=== PATIENT | female | born 1940 | race American Indian/Alaskan Native ===

== ENCOUNTER 2016-10-26 01:04 | Inpatient (IN) | payer MEDICARE ==
[2016-10-26] MEDS ORDERED: PROVENTIL IH ONE (02:37)
[2016-10-26] MEDS ORDERED: ATROVENT IH ONE (02:37)
--- NOTE | 2016-10-26 02:43 | Emergency Department Report ---
ED General Adult HPI - General Chief complaint: Dyspnea/Respdistress Stated complaint: MARIANELA Time Seen by Provider: 10/26/16 02:22 Source: patient, family, EMS (ems notes not available at time of chart dictation), RN notes reviewed, old records reviewed Mode of arrival: Stretcher Limitations: Physical Limitation - History of Present Illness Initial comments: This is a 76-year-old female, previously unknown to me. Her primary care doctor is Dr. Annette Hitchcock. Past medical history includes A. fib on Coumadin, high cholesterol, heart disease, stroke, multiple myeloma, on systemic anticoagulation. The patient presents to the ER complaining of chest pain, shortness of breath, cough, wheezing. Symptoms started a few hours ago. The chest pain is left- sided. It is constant. It increases with range of motion, coughing. The cough is productive of mucus. She denies lower extremity pain, she denies lower extremity swelling. She reports compliance with medications. No recent trips. Shortness of breath worsens when she lays supine. As per verbal report from the nurse who received from EMS, she was hypoxic in the 80s. On a nasal cannula, she is in the high 90s. -: Gradual Location: chest Severity scale (0 -10): 0 Quality: aching Consistency: constant Improves with: rest Worsens with: movement Associated Symptoms: chest pain, cough, loss of appetite, malaise, shortness of breath, weakness - Related Data Home Medications Medication Instructions Recorded Confirmed Last Taken Atorvastatin [Lipitor] 40 mg PO QHS 04/22/14 01/23/15 09/16/14 22:00 40mg Doxazosin Mesylate [Cardura] 2 mg PO DAILY 04/22/14 01/23/15 09/17/14 08:00 2mg Esomeprazole Magnesium [NexIUM] 40 mg PO QDAY 04/22/14 01/23/15 09/17/14 08:00 40mg amLODIPine [Norvasc] 10 mg PO DAILY 04/22/14 01/23/15 09/17/14 08:00 10mg Previous Rx's Medication Instructions Recorded Last Taken Type levETIRAcetam [Keppra TAB] 1,500 mg PO BID #60 tablet 09/16/14 09/17/14 10:00 Rx 1500mg Diltiazem Cd [Cardizem CD] 180 mg PO QDAY #30 capsule 01/29/15 Unknown Rx Oxycodone HCl [Oxecta] 5 mg PO Q6H PRN #10 tablet.orl 01/29/15 Unknown Rx Warfarin [Coumadin] 4 mg PO DAILY@1700 #7 tablet 01/29/15 Unknown Rx Allergies Allergy/AdvReac Type Severity Reaction Status Date / Time No Known Allergies Allergy Verified 04/18/14 13:51 ED Review of Systems ROS: Stated complaint: MARIANELA Other details as noted in HPI Constitutional: malaise, weakness Eyes: denies: vision change ENT: congestion Respiratory: shortness of breath, wheezing Cardiovascular: dyspnea on exertion Gastrointestinal: denies: abdominal pain Genitourinary: denies: urgency, dysuria Musculoskeletal: denies: back pain Skin: denies: lesions Neurological: weakness ED Past Medical Hx - Past Medical History Hx Hypertension: Yes Hx CVA: Yes (left side weakness) Hx Heart Attack/AMI: Yes Hx Diabetes: No Hx Renal Disease: Yes (1 seizure) Hx Arthritis: Yes Hx Seizures: Yes Hx HIV: No Additional medical history: Atrial fibrillation, GI bleeding - Surgical History Hx Pacemaker: No Hx Cholecystectomy: Yes Additional Surgical History: D&C - Social History Smoking Status: Current Some Day Smoker Substance Use Type: None - Medications Home Medications: Home Medications Medication Instructions Recorded Confirmed Last Taken Type Atorvastatin [Lipitor] 40 mg PO QHS 04/22/14 01/23/15 09/16/14 22:00 History 40mg Doxazosin Mesylate [Cardura] 2 mg PO DAILY 04/22/14 01/23/15 09/17/14 08:00 History 2mg Esomeprazole Magnesium [NexIUM] 40 mg PO QDAY 04/22/14 01/23/15 09/17/14 08:00 History 40mg amLODIPine [Norvasc] 10 mg PO DAILY 04/22/14 01/23/15 09/17/14 08:00 History 10mg levETIRAcetam [Keppra TAB] 1,500 mg PO BID #60 tablet 09/16/14 01/25/15 10:00 Rx 1500mg Diltiazem Cd [Cardizem CD] 180 mg PO QDAY #30 capsule 01/29/15 Unknown Rx Oxycodone HCl [Oxecta] 5 mg PO Q6H PRN #10 tablet.orl 01/29/15 Unknown Rx Warfarin [Coumadin] 4 mg PO DAILY@1700 #7 tablet 01/29/15 Unknown Rx ED Physical Exam - General Limitations: No Limitations, Physical Limitation General appearance: alert, in distress (mild respiratory distress) - Head Head exam: Present: atraumatic, normocephalic - Eye Eye exam: Present: normal appearance - ENT ENT exam: Present: mucous membranes dry - Neck Neck exam: Present: normal inspection, full ROM. Absent: tenderness, meningismus - Respiratory Respiratory exam: Present: respiratory distress, wheezes, rales - Cardiovascular Cardiovascular Exam: Present: regular rate, normal heart sounds. Absent: bradycardia, tachycardia, systolic murmur, diastolic murmur, rubs, gallop - GI/Abdominal GI/Abdominal exam: Present: soft, normal bowel sounds. Absent: distended, tenderness, guarding, rebound, rigid, pulsatile mass - Extremities Exam Extremities exam: Present: normal inspection, normal capillary refill, pedal edema, other (5/5 strength right upper extremity, right lower extremity. The left lower extremity is baseline weakness, and is unable to move. Minimal movement against gravity with the left upper extremity.). Absent: tenderness, calf tenderness - Back Exam Back exam: Present: normal inspection, full ROM. Absent: tenderness, CVA tenderness (R), CVA tenderness (L), muscle spasm, paraspinal tenderness, vertebral tenderness - Neurological Exam Neurological exam: Present: alert, oriented X3, motor sensory deficit - Psychiatric Psychiatric exam: Present: normal affect, normal mood - Skin Skin exam: Present: warm, dry, intact, normal color. Absent: rash ED Course Vital Signs 10/26/16 10/26/16 02:14 02:21 Temperature 98.4 F 98.4 F Pulse Rate 61 64 Respiratory 18 Rate Blood Pressure 103/57 Blood Pressure 103/67 [Left] O2 Sat by Pulse 87 96 Oximetry - Reevaluation(s) Reevaluation #1: 10/26/16 04:19 Differential diagnosis: Bronchitis, reactive airway disease, acute coronary syndrome, pneumonia Assessment and plan: 76-year-old female with what clinically sounds like an acute respiratory illness. She has wheezing, rales and rhonchi, saturating in the mid 80s, and has some respiratory distress. She takes Coumadin. She felt improved with albuterol, Atrovent and steroids. Influenza swab is pending. INR slightly subtherapeutic. She will be given Lovenox. Given his advanced age , medical comorbidities, low oxygen saturation, she will be admitted for further management. An ABG is pending. The Hospital physician, , accepts the patient to his service. ED Medical Decision Making - Lab Data Result diagrams: 10/26/16 03:21 10/26/16 03:21 Vital Signs 10/26/16 10/26/16 02:14 02:21 Temperature 98.4 F 98.4 F Pulse Rate 61 64 Respiratory 18 Rate Blood Pressure 103/57 Blood Pressure 103/67 [Left] O2 Sat by Pulse 87 96 Oximetry - EKG Data 10/26/16 02:53 Atrial fibrillation, left axis deviation, 70 bpm, poor R-wave progression, low voltage, nonspecific ST abnormality, not consistent with STEMI. Appears unchanged from prior. - Radiology Data Radiology results: report reviewed, image reviewed xr chest negative cardiomegaly Critical care attestation.: If time is entered above; I have spent that time in minutes in the direct care of this critically ill patient, excluding procedure time. ED Disposition Clinical Impression: Subtherapeutic international normalized ratio (INR) Dyspnea Qualifiers: Dyspnea type: unspecified Qualified Code(s): R06.00 - Dyspnea, unspecified Disposition: OP ADMITTED IP TO THIS HOSP Is pt being admited?: Yes Does the pt Need Aspirin: Yes Condition: Good
[2016-10-26 03:46] LABS: Basophils % (Auto) 0.5 % (0.0-1.8); Eosinophils % (Auto) 0.2 % (0.0-4.3); Hematocrit 38.6 % (30.3-42.9); Hemoglobin 13.3 gm/dl (10.1-14.3); Mean Corpuscular HGB Conc 35 % (30-34); Mean Corpuscular Hemoglobin 26 pg (28-32); Mean Corpuscular Volume 76 fl (79-97); Platelet Count 219 K/mm3 (140-440); Red Cell Distribution Width 16.1 % (13.2-15.2); White Blood Count 8.1 K/mm3 (4.5-11.0)
[2016-10-26 03:56] LABS: INR 1.24 (0.87-1.13)
[2016-10-26 03:57] LABS: Partial Thromboplastin Time 27.2 Sec. (24.2-36.6)
[2016-10-26 03:59] LABS: Creatine Kinase MB 1.8 ng/mL (0.0-4.0)
[2016-10-26 04:01] LABS: Alanine Aminotransferase 7 units/L (7-56); Albumin 3.2 g/dL (3.9-5); Albumin/Globulin Ratio 0.7 %; Alkaline Phosphatase 76 units/L (35-129); Anion Gap 20 mmol/L; BUN/Creatinine Ratio 13.84; Bilirubin,Total 0.3 mg/dL (0.1-1.2); Blood Urea Nitrogen 18 mg/dL (7-17); Calcium 8.7 mg/dL (8.4-10.2); Carbon Dioxide 21 mmol/L (22-30); Creatine Kinase 47 units/L (30-135); Glucose 154 mg/dL (65-100); Magnesium 2.7 mg/dL (1.7-2.3); Potassium 3.1 mmol/L (3.6-5.0); Sodium 140 mmol/L (137-145); Total Protein 7.6 g/dL (6.3-8.2)
--- NOTE | 2016-10-26 04:10 | XRay Report ---
FINAL REPORT EXAM: XR CHEST 1V AP HISTORY: Dyspnea TECHNIQUE: Single portable frontal view of the chest PRIORS: None FINDINGS: Lungs are clear. Heart is moderately enlarged. Normal pulmonary vasculature. No effusion or pneumothorax. IMPRESSION: 1. No acute finding. Moderate cardiomegaly.
[2016-10-26] MEDS ORDERED: LOVENOX SUB-Q STA (04:21)
[2016-10-26] MEDS ORDERED: BABY ASPIRIN PO ONE (04:22)
[2016-10-26 04:33] LABS: ISTAT Base Excess 4; ISTAT PH 7.484 (7.35-7.45); ISTAT PO2 71 (80-105); ISTAT SO2 95; ISTAT TCO2 28
[2016-10-26] MEDS ORDERED: LASIX IV ONE (04:35)
[2016-10-26] MEDS ORDERED: LOVENOX SUB-Q ONE (06:46)
[2016-10-26] MEDS ORDERED: LASIX ONE (06:46)
[2016-10-26] MEDS ORDERED: BABY ASPIRIN ONE (06:46)
--- NOTE | 2016-10-26 07:04 | Event Note ---
Date: 10/26/16 See H/p in reports Copd exacerbation Chest pain-r/o DC protocol Acute resp failure Hypokalemia HTN HLD GERD Nicotine dependence
[2016-10-26] MEDS ORDERED: DULCOLAX PR PRN (07:18)
[2016-10-26] MEDS ORDERED: AMBIEN PO PRN (07:18)
[2016-10-26] MEDS ORDERED: PERCOCET 5/325 PO PRN (07:18)
[2016-10-26] MEDS ORDERED: MILK OF MAGNESIA PO PRN (07:18)
[2016-10-26] MEDS ORDERED: DILAUDID IV PRN (07:18)
[2016-10-26] MEDS ORDERED: ZOFRAN IV PRN (07:18)
[2016-10-26] MEDS ORDERED: DUONEB 0.5 MG-3 MG/3 ML SOLN IH PRN (07:26)
[2016-10-26] MEDS ORDERED: SODIUM CHLORIDE FLUSH SYRINGE 10 ML IV PRN (07:58)
--- NOTE | 2016-10-26 08:30 | History and Physical Report ---
CHIEF COMPLAINT: 1. Increasing shortness of breath for a few hours. 2. Chest tightness present. HISTORY OF PRESENT ILLNESS: A 76-year-old, who is a 2-pack per week smoker, comes in for increasing shortness of breath, cough and wheezing for a few hours. Also, associated chest tightness. Cough is productive of mucoid sputum. No fever, no chills. Chest pain is about 6 on a scale of 1-10. She was hypoxic in the 80s as per the EMS. With nasal cannula, the patient is on the high 90s. PAST MEDICAL HISTORY: Significant for hypertension, gastroesophageal reflux disease and hyperlipidemia. CURRENT MEDICATIONS: Lipitor 40 mg p.o. at bedtime, Cardura 2 mg p.o. daily, Nexium 40 mg p.o. daily, and Norvasc 10 mg p.o. daily. ADDITIONAL PAST MEDICAL HISTORY: Significant for CVA, coronary artery disease, seizure, atrial fibrillation, and GI bleed in the past. PAST SURGICAL HISTORY: Cholecystectomy and D and C. SOCIAL HISTORY: Current everyday smoker, smokes about 2-3 packs a week. FAMILY HISTORY: Significant for hypertension. REVIEW OF SYSTEMS: CONSTITUTIONAL: No fever, no chills, no weight loss. HEENT: No sore throat. No postnasal drip. RESPIRATORY SYSTEM: Increasing wheezing, cough, productive of mucoid sputum for the last few hours. CARDIOVASCULAR SYSTEM: Some chest tightness present. No diaphoresis. No palpitations. GASTROINTESTINAL: No nausea, no vomiting, no diarrhea. MUSCULOSKELETAL: No joint pains. GENITOURINARY SYSTEM: No dysuria, no flank pain. CENTRAL NERVOUS SYSTEM: No syncope, no seizures. SKIN: No rashes or ulcers. HEMATOLOGIC AND LYMPHATIC SYSTEM: No lymphadenopathy, no easy bruising. PSYCHIATRIC: The patient is not depressed. No suicidal or homicidal ideations. A 14-point review of systems is done, other than chest pain and shortness of breath, the rest of review of systems is essentially negative. PHYSICAL EXAMINATION: GENERAL: Elderly female, in moderate respiratory distress. VITAL SIGNS: Blood pressure is 103/57, temperature is 98.4, pulse is 61, respirations are 18. HEENT: Unremarkable. Pupils equal and reactive. NECK: Supple. No lymphadenopathy. No thyromegaly. LUNGS: Bilateral inspiratory and expiratory rhonchi present. Decreased air entry present. CARDIOVASCULAR: S1, S2 heard. No gallop, no murmur, no rub. Apical impulse in left fifth intercostal space and midclavicular line. ABDOMEN: Soft and benign. No hepatosplenomegaly. No guarding, no rigidity. Hernial orifices are normal. EXTREMITIES: Good pedal pulses. No pedal edema. CENTRAL NERVOUS SYSTEM: Alert and oriented x 4, nonfocal exam. SKIN: Normal. LABORATORY DATA: White count is 8100, H and H is 13.3 and 38.6, platelet count is 219,000. Protime is 15.5, INR is 1.24, PTT is 27.2. Blood gas is pH 7.484, pCO2 of 36, pO2 of 71, bicarbonate of 27, and O2 sats are 95%. Sodium is 140, potassium is 3.1, chloride is 102, bicarbonate is 21, BUN and creatinine is 18 and 1.3. Glucose is 154. Magnesium is 2.7. BNP is 1945. CK is normal. First CK is 47. CK-MB is 1.8. Troponin is less than 0.010. Chest x-ray shows emphysematous changes. DIAGNOSTIC DATA: EKG shows atrial fibrillation. Left axis deviation, 70 beats per minute, poor R-wave progression, low voltage, nonspecific ST-T wave abnormalities. EKG interpreted by me. Chest x-ray, no infiltrates. ASSESSMENT AND PLAN: 1. Chronic obstructive pulmonary disease exacerbation. The patient is started on DuoNebs q.6 hours around the clock and Q. 3 hours p.r.n., IV Levaquin 750 mg q.24 hours, and also IV Solu-Medrol 60 mg q. 8 hours. 2. Hypokalemia, being supplemented. 3. Acute respiratory failure. The patient was in acute respiratory failure at the time of admission to the ER. The patient's saturations were in the low 80s. The patient was given nasal cannula oxygen 96%. Need for home oxygen, to be assessed. 4. Nicotine dependence. The patient is on Nicoderm patch. The patient counseled about compliance with stopping smoking. Time spent about 12 minutes. 5. Hyperlipidemia. Continue Lipitor 40 mg daily. 6. Hypertension. Continue amlodipine 10 mg daily and Cardura 2 mg p.o. daily. 7. Gastroesophageal reflux disease. Continue Nexium 40 mg daily. 8. Deep venous thrombosis prophylaxis, Lovenox 40 mg subcutaneous daily. [facility]# [id number] KRISTA/JUAN
[2016-10-26 08:47] LABS: Creatine Kinase MB 1.9 ng/mL (0.0-4.0)
[2016-10-26 08:48] LABS: Creatine Kinase 51 units/L (30-135)
--- NOTE | 2016-10-26 08:57 | Admit Criteria Form ---
Admission Criteria Documentation: COPD Clinical Indications for Admission to Inpatient Care (Place 'X' for any and all applicable criteria): Admission is indicated for ANY ONE of the following (1)(2)(3): [ ]I. Acute exacerbation by high-risk comorbidity (e.g., pneumonia, dysrhythmia, heart failure, pleural effusion, pneumothorax) or severe underlying COPD (e.g., steroid dependent) [X ]II. Inpatient admission required rather than observation care (see Chronic Obstructive Pulmonary Disease: Observation Care) because of ANY ONE of the following: [X ]a) New or pre-existing signs or symptoms of COPD (eg, dyspnea or Tachypnea at rest or with minimal activity) that persist despite outpatient and observation care treatment [ ]b) New-onset hypoxemia (room air SaO2 less than 90%, PO2 less than 60 mm Hg (8.0 kPa)) that persists despite outpatient and observation care treatment [ ]c) Worsening of pre-existing hypoxemia (eg, new or increased requirement for supplemental oxygen to maintain oxygenation at baseline level) that persists despite outpatient and observation care treatment, with oxygen treatment needs performable only in acute inpatient setting [ ]d) Hypercarbia (PCO2 greater than 40 mm Hg (5.3 kPa))-induced respiratory acidosis (pH less than 7.35) that persists despite outpatient and observation care treatment [ ]e) Supplemental oxygen or respiratory treatments for over 24 hours that are performable only in acute inpatient setting [ ]f) Chest tube placement with active evacuation (e.g., suction, drainage) (5) [ ]g) Other condition, treatment or monitoring requiring inpatient admission [ ]III. Planned invasive surgical or diagnostic procedures requiring acute- care hospitalization [ ]IV. Acute respiratory failure (e.g., uncompensated hypercarbia, severe hypoxemia) [ ]V. Severe comorbid condition (e.g., severe steroid myopathy, acute vertebral fracture) that has acutely worsened pulmonary function [ ]. Confusion state, lethargy, obtundation, stupor or coma Extended stay beyond goal length of stay may be needed for (31)(32): [ ]a ) Respiratory Failure. [ ]b) Severe or persisting hypoxemia or hypercarbia [ ]c) Severe or persistent dyspnea [ ]d) Comorbidities (e.g. chronic heart failure, atrial fibrillation with rapid response, pneumonia) [ ]e) Malnutrition The original [facility] content created by [facility] has been revised. The portions of the content which have been revised are identified through the use of italic text or in bold, and [facility] has neither reviewed nor approved the modified material. All other unmodified content is copyright [facility]. Please see references footnoted in the original [facility] edition 2016 Admission Criteria Met: Yes
[2016-10-26] MEDS ORDERED: K-DUR PO ONE ×2 (08:58→09:00)
[2016-10-26] MEDS ORDERED: TYLENOL PO PRN (09:00)
[2016-10-26] MEDS: DUONEB 0.5 MG-3 MG/3 ML SOLN IH SCH (09:46)
[2016-10-26] MEDS ORDERED: LEVAQUIN 750MG/150ML 150 ML IV SCH (10:00)
[2016-10-26] MEDS ORDERED: PEPCID PO SCH (10:00)
[2016-10-26] MEDS ORDERED: NON-FORMULARY (Esomeprazole Magnesium [Nexium] 40 MG) PO SCH (10:00)
[2016-10-26] MEDS ORDERED: NON-FORMULARY (Doxazosin Mesylate [Cardura] 2 MG) PO SCH (10:00)
--- NOTE | 2016-10-26 10:44 | Echocardiography Report ---
Transthoracic Echocardiogram BP: 133/74 Conclusions *The left ventricular chamber size is normal. *Moderate concentric left ventricular hypertrophy is observed. *Global left ventricular systolic function is normal. *The estimated ejection fraction is 60-65%. *The left ventricular diastolic filling pattern is restrictive. *The left ventricular diastolic filling pattern is consistent with elevated mean left atrial pressure. *The left atrium is severely dilated. *The left atrium is severely dilated. Findings Left Ventricle: The left ventricular chamber size is normal. Moderate concentric left ventricular hypertrophy is observed. Global left ventricular systolic function is normal. The estimated ejection fraction is 60-65%. The left ventricular diastolic filling pattern is restrictive. The left ventricular diastolic filling pattern is consistent with elevated mean left atrial pressure. Left Atrium: The left atrium is severely dilated. Right Ventricle: The right ventricular cavity size is normal. The right ventricular global systolic function is normal. Right Atrium: The right atrial cavity size is normal. Aortic Valve: The aortic valve is trileaflet. The aortic valve leaflets are mildly thickened. There is no evidence of aortic regurgitation. There is no evidence of aortic stenosis. Mitral Valve: The mitral valve leaflets appear normal. There is no evidence of mitral regurgitation. There is no evidence of mitral stenosis. Tricuspid Valve: The tricuspid valve leaflets are normal. There is mild tricuspid regurgitation. Pulmonic Valve: There is mild pulmonic regurgitation. Pericardium: There is no pericardial effusion. Aorta: There is no dilatation of the aortic root. Venous: The inferior vena cava appears normal in size. Measurements Chambers MM Name Value Normal Range Ao root diameter (MM) 3 cm (2 - 3.7) LA dimension (AP) MM 5.3 cm (1.9 - 4) LA:Ao ratio (MM) 1.77 ratio - AV cusp separation (MM) 1.1 cm (1.5 - 2.6) Chambers 2D Name Value Normal Range IVSd (2D) 1.44 cm (0.6 - 1.1) LVPWd (2D) 1.45 cm (0.6 - 1.1) IVS:LVPW ratio (2D) 0.99 ratio - LVIDd (2D) 5.26 cm (3.7 - 5.6) LVIDs (2D) 3.61 cm (2 - 3.8) LV FS (Teichholz) (2D) 31.4 % - LV FS (cube) (2D) 31.4 % - EF Teichholz (2D) 58.8 % - LA dimension (AP) 2D 4.7 cm (1.9 - 4) Volumes/Mass Name Value Normal Range LA ESV SP 4CH (MOD) 59 ml - LA ESV SP 2CH (MOD) 90 ml - LA ESV BP (MOD) 79 ml - LA ESV BP (MOD) index 43.6 ml/m2 - Diastolic/Systolic Function Name Value Normal Range MV E-wave Vmax 1.04 m/sec - MV deceleration time 190 msec - MV A-wave Vmax 0.37 m/sec - MV E:A ratio 2.8 ratio - LV septal e' Vmax 0.09 m/sec - LV lateral e' Vmax 0.09 m/sec - LV E:e' septal ratio 12 ratio - LV E:e' lateral ratio 11.8 ratio - Aortic Valve Name Value Normal Range AV VTI 32.1 cm - AV mean gradient 6 mmHg - LVOT diameter 2 cm - LVOT VTI 21.5 cm - LVOT mean gradient 3 mmHg - SV LVOT 68 ml - LUIS ANTONIO (continuity VTI) 2.1 cm2 - Mitral Valve Name Value Normal Range MV PHT 53 msec - MVA (PHT) 4.15 cm2 - Tricuspid Valve Name Value Normal Range TR Vmax 2.55 m/sec - TR peak gradient 26 mmHg - Pulmonic Valve/Qp:Qs Name Value Normal Range PV Vmax 1.14 m/sec - PV peak gradient 5 mmHg - MN end-diastolic Vmax 1.33 m/sec - PV acceleration time 109 msec -
[2016-10-26] MEDS ORDERED: LEXISCAN IV ONE ×3 (10:47→11:14)
[2016-10-26] MEDS ORDERED: TYLENOL ONE (11:40)
--- NOTE | 2016-10-26 14:07 | Treadmill Report ---
INDICATION FOR PROCEDURE: Chest pain. FINDINGS: There is no scintigraphic evidence of myocardial ischemia. The left ventricle is normal in size and systolic function. The left ventricular ejection fraction is not measured due to the non-gating of this study. CONCLUSION: Normal perfusion scan. JOB# [id number] IVANNA/JUAN
[2016-10-26 14:26] LABS: Creatine Kinase MB 2.1 ng/mL (0.0-4.0)
[2016-10-26 14:28] LABS: Creatine Kinase 53 units/L (30-135)
--- NOTE | 2016-10-26 14:38 | Consultation ---
History of Present Illness Consult date: 10/26/16 Reason for consult: dyspnea, COPD History of present illness: This is 76 year old female admitted through emergency room with shortness of breath and left sided pleuritic chest pain.Patient has cough with productive white yellow sputumPatient has history of smoking and COPD.Patients other medical problems Hypertension ,Hyperlipidemia and Gerd.Patient hypoxic on arrival to the emergency room. O2 satuaration running in 80s.Patient also has history of atrial fibrillation,stroke,Multiple myeloma .Patient has no known drug allergies. 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 Patient has exercise stress test reported normal perfusion scan. Patient is on 2 litres O2. O2 saruaration 99%. Chest xray reported. Moderate cardiomegaly. No acute findings. Past History Past Medical History: atrial fib, COPD, GERD, hypertension, stroke, other ( Multple myeloma, hyperlipidemia.) Medications and Allergies Allergies Allergy/AdvReac Type Severity Reaction Status Date / Time No Known Allergies Allergy Verified 04/18/14 13:51 Home Medications Medication Instructions Recorded Confirmed Last Taken Type Atorvastatin [Lipitor] 40 mg PO QHS 04/22/14 01/23/15 09/16/14 22:00 History 40mg Doxazosin Mesylate [Cardura] 2 mg PO DAILY 04/22/14 01/23/15 09/17/14 08:00 History 2mg Esomeprazole Magnesium [NexIUM] 40 mg PO QDAY 04/22/14 01/23/15 09/17/14 08:00 History 40mg amLODIPine [Norvasc] 10 mg PO DAILY 04/22/14 01/23/15 09/17/14 08:00 History 10mg levETIRAcetam [Keppra TAB] 1,500 mg PO BID #60 tablet 09/16/14 01/25/15 10:00 Rx 1500mg Diltiazem Cd [Cardizem CD] 180 mg PO QDAY #30 capsule 01/29/15 Unknown Rx Oxycodone HCl [Oxecta] 5 mg PO Q6H PRN #10 tablet.orl 01/29/15 Unknown Rx Warfarin [Coumadin] 4 mg PO DAILY@1700 #7 tablet 01/29/15 Unknown Rx Active Meds: Active Medications Acetaminophen (Tylenol) 650 mg PO Q4H PRN PRN Reason: Pain MILD(1-3)/Fever >100.5/BYRD Last Admin: 10/26/16 11:45 Dose: 650 mg Albuterol/Ipratropium (Duoneb 0.5 Mg-3 Mg/3 Ml Soln) 1 ampul IH Q3H PRN PRN Reason: Wheezing Albuterol/Ipratropium (Duoneb 0.5 Mg-3 Mg/3 Ml Soln) 1 ampul IH Q6HRT [facility] Last Admin: 10/26/16 09:46 Dose: Not Given Amlodipine Besylate (Norvasc) 10 mg PO DAILY [facility] Atorvastatin Calcium (Lipitor) 40 mg PO QHS [facility] Bisacodyl (Dulcolax) 10 mg ID QDAY PRN PRN Reason: Constipation unrelieved by MOM Diltiazem HCl (Cardizem Cd) 180 mg PO QDAY [facility] Docusate Sodium (Colace) 100 mg PO BID [facility] Doxazosin Mesylate (Cardura) 2 mg PO DAILY@2200 [facility] Enoxaparin Sodium (Lovenox) 40 mg SUB-Q QDAY [facility] Hydromorphone HCl (Dilaudid) 0.5 mg IV Q3H PRN PRN Reason: Pain , Severe (7-10) Dextrose/Sodium Chloride (D5/0.45ns) 1,000 mls @ 42 mls/hr IV DIRECT [facility] Levofloxacin/Dextrose (Levaquin 750mg/150ml) 150 mls @ 100 mls/hr IV Q48HR [facility] PRN Reason: Protocol Levetiracetam (Keppra) 1,500 mg PO BID [facility] Magnesium Hydroxide (Milk Of Magnesia) 30 ml PO Q4H PRN PRN Reason: Constipation Methylprednisolone Sodium Succinate (Solu-Medrol) 60 mg IV Q8HR [facility] Last Admin: 10/26/16 08:43 Dose: 60 mg Nicotine (Habitrol) 21 mg TD QDAY [facility] Ondansetron HCl (Zofran) 4 mg IV Q8H PRN PRN Reason: N/V unrelieved by Reglan Oxycodone/Acetaminophen (Percocet 5/325) 1 tab PO Q6H PRN PRN Reason: Pain, Moderate (4-6) Pantoprazole Sodium (Protonix) 40 mg PO DAILY [facility] Sodium Chloride (Sodium Chloride Flush Syringe 10 Ml) 10 ml IV PRN PRN PRN Reason: LINE FLUSH Warfarin Sodium (Coumadin) 4 mg PO DAILY@1700 [facility] PRN Reason: Protocol Zolpidem Tartrate (Ambien) 5 mg PO QHS PRN PRN Reason: Insomnia Review of Systems All systems: negative Physical Examination Vital signs: Vital Signs Pulse Ox 93 10/26/16 02:03 General appearance: no acute distress, alert Eyes: non-icteric ENT: oropharynx moist Neck: supple, no JVD Ascultation: Bilateral: diminished breath sounds Cardiovascular: irregular rhythm Gastrointestinal: normoactive bowel sounds, soft, non-tender Integumentary: normal Extremities: no cyanosis, no edema Musculoskeletal: no deformities Gait: other (Can not assess now.) normal mental status, non-focal exam, pupils equal and round, CN II-XII normal Results - Laboratory Findings CBC and BMP: 10/26/16 03:21 10/26/16 03:21 ABG POC ABG pH 7.484 (7.35-7.45) H 10/26/16 04:26 POC ABG pCO2 36.0 (35-45) 10/26/16 04:26 POC ABG pO2 71 (80-105) L 10/26/16 04:26 POC ABG HCO3 27.0 10/26/16 04:26 POC ABG Total CO2 28 10/26/16 04:26 POC ABG O2 Sat 95 10/26/16 04:26 PT/INR, D-dimer PT 15.5 Sec. (12.2-14.9) H 10/26/16 03:21 INR 1.24 (0.87-1.13) H 10/26/16 03:21 - Diagnostic Findings Chest x-ray: report reviewed (No acute findings. Moderate cardiomegaly.), image reviewed Assessment and Plan - Patient Problems (1) COPD exacerbation Current Visit: Yes Status: Acute Plan to address problem: Albuterol/atrovent aerosol treatments q 6 hours. O2 supplementation 2 litres. Continue I/V solumedral Continue S/C Lovenox. Continue Protonix. (2) Atrial fibrillation with rapid ventricular response Current Visit: No Status: Acute Plan to address problem: Management as per cardiology. Patient presently on Lovenox and coumadin. (3) Acute bronchitis Current Visit: Yes Status: Acute Plan to address problem: Patient is on Levaquine.
[2016-10-26] MEDS: PROTONIX PO SCH (17:17)
[2016-10-26] MEDS: COLACE PO SCH ×2 (17:17→23:58)
[2016-10-26] MEDS: NORVASC PO SCH (17:17)
[2016-10-26] MEDS: HABITROL TD SCH (17:18)
[2016-10-26] MEDS: LOVENOX SUB-Q SCH (17:19)
[2016-10-26] MEDS: COUMADIN PO SCH (17:26)
[2016-10-26] MEDS: KEPPRA PO SCH (17:28)
[2016-10-26] MEDS: CARDIZEM CD PO SCH (17:28)
[2016-10-26] MEDS: D5/0.45NS 1,000 ML IV SCH (17:33)
[2016-10-26] MEDS: CARDURA PO SCH (23:48)
[2016-10-27] MEDS: KEPPRA PO SCH ×3 (00:08→22:45)
[2016-10-27 07:27] LABS: Basophils % (Auto) 1.7 % (0.0-1.8); Hematocrit 41.5 % (30.3-42.9); Hemoglobin 13.9 gm/dl (10.1-14.3); Mean Corpuscular HGB Conc 34 % (30-34); Mean Corpuscular Volume 76 fl (79-97); Platelet Count 234 K/mm3 (140-440); Red Blood Count 5.49 M/mm3 (3.65-5.03); Red Cell Distribution Width 16.3 % (13.2-15.2); White Blood Count 9.7 K/mm3 (4.5-11.0)
[2016-10-27 07:34] LABS: Mean Corpuscular Hemoglobin 25 pg (28-32)
[2016-10-27 07:36] LABS: INR 1.5 (0.87-1.13)
[2016-10-27 08:09] LABS: Alanine Aminotransferase 7 units/L (7-56); Albumin 3.3 g/dL (3.9-5); Albumin/Globulin Ratio 0.7 %; Alkaline Phosphatase 76 units/L (35-129); BUN/Creatinine Ratio 17.77; Bilirubin,Total 0.4 mg/dL (0.1-1.2); Blood Urea Nitrogen 16 mg/dL (7-17); Calcium 8.8 mg/dL (8.4-10.2); Carbon Dioxide 24 mmol/L (22-30); Glucose 186 mg/dL (65-100); Total Protein 7.9 g/dL (6.3-8.2)
[2016-10-27 08:10] LABS: Anion Gap 18 mmol/L; Chloride 101.2 mmol/L (98-107); Potassium 3.5 mmol/L (3.6-5.0); Sodium 140 mmol/L (137-145)
[2016-10-27] MEDS: COLACE PO SCH ×2 (13:21→22:45)
[2016-10-27] MEDS: PROTONIX PO SCH (13:21)
[2016-10-27] MEDS: CARDIZEM CD PO SCH (13:22)
[2016-10-27] MEDS: LOVENOX SUB-Q SCH (13:22)
[2016-10-27] MEDS: HABITROL TD SCH (13:32)
[2016-10-27] MEDS: NORVASC PO SCH (14:38)
--- NOTE | 2016-10-27 19:23 | Progress Note ---
Assessment and Plan - Patient Problems (1) COPD exacerbation Current Visit: Yes Status: Acute Plan to address problem: Continue with bronchodilators, supplemental oxygen as indicated. Start steroid taper in the morning Short course of antibitoics VTE prophylaxis- is on chronic anticoagulation Supplemental oxygen to keep O2 sats>90% PT/OT and mobility (2) Dyspnea Current Visit: Yes Status: Acute Qualifiers: Dyspnea type: unspecified Qualified Code(s): R06.00 - Dyspnea, unspecified (3) Acute bronchitis Current Visit: Yes Status: Acute Subjective Date of service: 10/27/16 Principal diagnosis: acute hypoxia, COPD Interval history: This is 76 year old female admitted through emergency room with shortness of breath and left sided pleuritic chest pain.Patient has cough with productive white yellow sputumPatient has history of smoking and COPD.Patients other medical problems Hypertension ,Hyperlipidemia and Gerd.Patient hypoxic on arrival to the emergency room. O2 satuaration running in 80s.Patient also has history of atrial fibrillation,stroke,Multiple myeloma .Patient has no known drug allergies. 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 Patient has exercise stress test reported normal perfusion scan. Patient is on 2 litres O2. O2 saruaration 99%. Chest xray reported. Moderate cardiomegaly. No acute findings. Today 10/27/16- states she feels much better. Able to lie flat. She denies any cough, no chest pain, no shortness of breath, no fvers or chills. States she does not like the hospital food so her appetite is not what it should be. Objective Vital Signs - 12hr 10/27/16 10/27/16 13:22 14:15 Temperature 98 F Pulse Rate 79 Pulse Rate [ 89 Right Radial] Respiratory 18 Rate Blood Pressure 183/77 Blood Pressure 133/70 [Right Arm] O2 Sat by Pulse 98 Oximetry Constitutional: no acute distress, alert Eyes: non-icteric ENT: oropharynx moist Neck: supple, no JVD Effort: normal Ascultation: Bilateral: diminished breath sounds Cardiovascular: regular rate and rhythm Gastrointestinal: normoactive bowel sounds, soft, non-tender, non-distended Integumentary: normal Extremities: no cyanosis, no edema Neurologic: normal mental status, non-focal exam, pupils equal and round, CN II- XII normal Psychiatric: mood appropriate CBC and BMP: 10/27/16 07:06 10/27/16 07:06 ABG, PT/INR, D-dimer: ABG POC ABG pH 7.484 (7.35-7.45) H 10/26/16 04:26 POC ABG pCO2 36.0 (35-45) 10/26/16 04:26 POC ABG pO2 71 (80-105) L 10/26/16 04:26 POC ABG HCO3 27.0 10/26/16 04:26 POC ABG Total CO2 28 10/26/16 04:26 POC ABG O2 Sat 95 10/26/16 04:26 PT/INR, D-dimer PT 18.1 Sec. (12.2-14.9) H 10/27/16 07:06 INR 1.50 (0.87-1.13) H 10/27/16 07:06 Abnormal lab findings: Abnormal Labs 10/27/16 10/27/16 10/27/16 07:06 07:06 07:06 RBC 5.49 H MCV 76 L MCH 25 L RDW 16.3 H Baso # 0.2 H Seg Neutrophils % 79.8 H Seg Neutrophils # 7.8 H PT 18.1 H INR 1.50 H Potassium 3.5 L Glucose 186 H Albumin 3.3 L Chest x-ray: image reviewed (no acute pulmonary infiltrate)
[2016-10-27] MEDS: COUMADIN PO SCH (19:53)
--- NOTE | 2016-10-27 21:00 | Progress Note ---
Assessment and Plan Assessment and plan: 1. COPD exac Hospitalist Physical - Constitutional Vitals: Temp Pulse Resp BP Pulse Ox 98 F 89 18 133/70 98 10/27/16 14:15 10/27/16 14:15 10/27/16 14:15 10/27/16 14:15 10/27/16 14:15 Results - Labs CBC & Chem 7: 10/27/16 07:06 10/27/16 07:06 Labs: Laboratory Last Values WBC 9.7 K/mm3 (4.5-11.0) 10/27/16 07:06 RBC 5.49 M/mm3 (3.65-5.03) H 10/27/16 07:06 Hgb 13.9 gm/dl (10.1-14.3) 10/27/16 07:06 Hct 41.5 % (30.3-42.9) 10/27/16 07:06 MCV 76 fl (79-97) L 10/27/16 07:06 MCH 25 pg (28-32) L 10/27/16 07:06 MCHC 34 % (30-34) 10/27/16 07:06 RDW 16.3 % (13.2-15.2) H 10/27/16 07:06 Plt Count 234 K/mm3 (140-440) 10/27/16 07:06 Lymph % (Auto) 15.1 % (13.4-35.0) 10/27/16 07:06 [place] % (Auto) 3.4 % (0.0-7.3) 10/27/16 07:06 Eos % (Auto) 0.0 % (0.0-4.3) 10/27/16 07:06 Baso % (Auto) 1.7 % (0.0-1.8) 10/27/16 07:06 Lymph # 1.5 K/mm3 (1.2-5.4) 10/27/16 07:06 [place] # 0.3 K/mm3 (0.0-0.8) 10/27/16 07:06 Eos # 0.0 K/mm3 (0.0-0.4) 10/27/16 07:06 Baso # 0.2 K/mm3 (0.0-0.1) H 10/27/16 07:06 Seg Neutrophils % 79.8 % (40.0-70.0) H 10/27/16 07:06 Seg Neutrophils # 7.8 K/mm3 (1.8-7.7) H 10/27/16 07:06 PT 18.1 Sec. (12.2-14.9) H 10/27/16 07:06 INR 1.50 (0.87-1.13) H 10/27/16 07:06 APTT 27.2 Sec. (24.2-36.6) 10/26/16 03:21 POC ABG pH 7.484 (7.35-7.45) H 10/26/16 04:26 POC ABG pCO2 36.0 (35-45) 10/26/16 04:26 POC ABG pO2 71 (80-105) L 10/26/16 04:26 POC ABG HCO3 27.0 10/26/16 04:26 POC ABG Total CO2 28 10/26/16 04:26 POC ABG O2 Sat 95 10/26/16 04:26 POC ABG Base Excess 4 10/26/16 04:26 FiO2 28 % 10/26/16 04:26 Sodium 140 mmol/L (137-145) 10/27/16 07:06 Potassium 3.5 mmol/L (3.6-5.0) L 10/27/16 07:06 Chloride 101.2 mmol/L (98-107) 10/27/16 07:06 Carbon Dioxide 24 mmol/L (22-30) 10/27/16 07:06 Anion Gap 18 mmol/L 10/27/16 07:06 BUN 16 mg/dL (7-17) 10/27/16 07:06 Creatinine 0.9 mg/dL (0.7-1.2) 10/27/16 07:06 Estimated GFR > 60 ml/min 10/27/16 07:06 BUN/Creatinine Ratio 17.77 % 10/27/16 07:06 Glucose 186 mg/dL (65-100) H 10/27/16 07:06 Lactic Acid 1.7 mmol/L (0.7-2.0) 10/26/16 03:21 Calcium 8.8 mg/dL (8.4-10.2) 10/27/16 07:06 Magnesium 2.7 mg/dL (1.7-2.3) H 10/26/16 03:21 Total Bilirubin 0.4 mg/dL (0.1-1.2) 10/27/16 07:06 AST 10 units/L (5-40) 10/27/16 07:06 ALT 7 units/L (7-56) 10/27/16 07:06 Alkaline Phosphatase 76 units/L (35-129) 10/27/16 07:06 Total Creatine Kinase 53 units/L (30-135) 10/26/16 13:37 CK-MB (CK-2) 2.1 ng/mL (0.0-4.0) 10/26/16 13:37 CK-MB (CK-2) Rel Index 3.9 (0-4) 10/26/16 13:37 Troponin T < 0.010 ng/mL (0.00-0.029) 10/26/16 13:37 NT-Pro-B Natriuret Pep 1945 pg/mL (0-900) H 10/26/16 03:21 Total Protein 7.9 g/dL (6.3-8.2) 10/27/16 07:06 Albumin 3.3 g/dL (3.9-5) L 10/27/16 07:06 Albumin/Globulin Ratio 0.7 % 10/27/16 07:06
[2016-10-27] MEDS: CARDURA PO SCH (23:00)
[2016-10-28] MEDS: D5/0.45NS 1,000 ML IV SCH (00:51)
[2016-10-28 06:17] LABS: INR 2.05 (0.87-1.13)
[2016-10-28] MEDS: DUONEB 0.5 MG-3 MG/3 ML SOLN IH SCH ×4 (07:47→22:06)
[2016-10-28] MEDS: HABITROL TD SCH ×2 (09:54→10:07)
[2016-10-28] MEDS: COLACE PO SCH ×2 (09:55→21:29)
[2016-10-28] MEDS: PROTONIX PO SCH (09:55)
[2016-10-28] MEDS: KEPPRA PO SCH ×2 (09:56→21:30)
[2016-10-28] MEDS: LEVAQUIN PO SCH (09:56)
[2016-10-28] MEDS: NORVASC PO SCH (09:56)
[2016-10-28] MEDS: CARDIZEM CD PO SCH (10:00)
--- NOTE | 2016-10-28 11:09 | Progress Note ---
Assessment and Plan - Patient Problems (1) COPD exacerbation Current Visit: Yes Status: Acute Plan to address problem: Continue with bronchodilators, supplemental oxygen as indicated. Start steroid taper in the morning Short course of antibitoics VTE prophylaxis- is on chronic anticoagulation Supplemental oxygen to keep O2 sats>90% PT/OT and mobility (2) Dyspnea Current Visit: Yes Status: Acute Qualifiers: Dyspnea type: unspecified Qualified Code(s): R06.00 - Dyspnea, unspecified (3) Acute bronchitis Current Visit: Yes Status: Acute Subjective Date of service: 10/28/16 Principal diagnosis: acute hypoxia, COPD Interval history: This is 76 year old female admitted through emergency room with shortness of breath and left sided pleuritic chest pain.Patient has cough with productive white yellow sputumPatient has history of smoking and COPD.Patients other medical problems Hypertension ,Hyperlipidemia and Gerd.Patient hypoxic on arrival to the emergency room. O2 satuaration running in 80s.Patient also has history of atrial fibrillation,stroke,Multiple myeloma .Patient has no known drug allergies. 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 Patient has exercise stress test reported normal perfusion scan. Patient is on 2 litres O2. O2 saruaration 99%. Chest xray reported. Moderate cardiomegaly. No acute findings. Today 10/27/16- states she feels much better. Able to lie flat. She denies any cough, no chest pain, no shortness of breath, no fvers or chills. States she does not like the hospital food so her appetite is not what it should be. Today 10/28/2016- feels much better. off supplemental oxygen Objective Vital Signs - 12hr 10/27/16 10/28/16 10/28/16 23:25 07:30 09:56 Temperature 97.9 F 97.6 F Pulse Rate 83 Pulse Rate [ 90 83 Right Radial] Respiratory 18 20 Rate Blood Pressure 142/83 Blood Pressure 128/77 142/83 [Right Arm] O2 Sat by Pulse 98 98 Oximetry 10/28/16 10:00 Temperature Pulse Rate 83 Pulse Rate [ Right Radial] Respiratory Rate Blood Pressure 142/83 Blood Pressure [Right Arm] O2 Sat by Pulse Oximetry Constitutional: no acute distress, alert, asleep Eyes: non-icteric ENT: oropharynx moist Neck: supple, no JVD Effort: normal Ascultation: Bilateral: diminished breath sounds Cardiovascular: regular rate and rhythm Gastrointestinal: normoactive bowel sounds, soft, non-tender, non-distended Integumentary: normal Extremities: no cyanosis, no edema Neurologic: normal mental status, non-focal exam, pupils equal and round, CN II- XII normal Psychiatric: mood appropriate CBC and BMP: 10/27/16 07:06 10/27/16 07:06 ABG, PT/INR, D-dimer: ABG POC ABG pH 7.484 (7.35-7.45) H 10/26/16 04:26 POC ABG pCO2 36.0 (35-45) 10/26/16 04:26 POC ABG pO2 71 (80-105) L 10/26/16 04:26 POC ABG HCO3 27.0 10/26/16 04:26 POC ABG Total CO2 28 10/26/16 04:26 POC ABG O2 Sat 95 10/26/16 04:26 PT/INR, D-dimer PT 23.2 Sec. (12.2-14.9) H 10/28/16 05:35 INR 2.05 (0.87-1.13) H 10/28/16 05:35 Abnormal lab findings: Abnormal Labs 10/27/16 10/27/16 10/27/16 07:06 07:06 07:06 RBC 5.49 H MCV 76 L MCH 25 L RDW 16.3 H Baso # 0.2 H Seg Neutrophils % 79.8 H Seg Neutrophils # 7.8 H PT 18.1 H INR 1.50 H Potassium 3.5 L Glucose 186 H Albumin 3.3 L 10/28/16 05:35 RBC MCV MCH RDW Baso # Seg Neutrophils % Seg Neutrophils # PT 23.2 H INR 2.05 H Potassium Glucose Albumin
--- NOTE | 2016-10-28 20:33 | Progress Note ---
Assessment and Plan Assessment and plan: 1. COPD exac Hospitalist Physical - Constitutional Vitals: Temp Pulse Resp BP Pulse Ox 98.3 F 101 H 18 129/76 99 10/28/16 17:15 10/28/16 17:15 10/28/16 17:15 10/28/16 17:15 10/28/16 17:15 Results - Labs CBC & Chem 7: 10/27/16 07:06 10/27/16 07:06 Labs: Laboratory Last Values WBC 9.7 K/mm3 (4.5-11.0) 10/27/16 07:06 RBC 5.49 M/mm3 (3.65-5.03) H 10/27/16 07:06 Hgb 13.9 gm/dl (10.1-14.3) 10/27/16 07:06 Hct 41.5 % (30.3-42.9) 10/27/16 07:06 MCV 76 fl (79-97) L 10/27/16 07:06 MCH 25 pg (28-32) L 10/27/16 07:06 MCHC 34 % (30-34) 10/27/16 07:06 RDW 16.3 % (13.2-15.2) H 10/27/16 07:06 Plt Count 234 K/mm3 (140-440) 10/27/16 07:06 Lymph % (Auto) 15.1 % (13.4-35.0) 10/27/16 07:06 [place] % (Auto) 3.4 % (0.0-7.3) 10/27/16 07:06 Eos % (Auto) 0.0 % (0.0-4.3) 10/27/16 07:06 Baso % (Auto) 1.7 % (0.0-1.8) 10/27/16 07:06 Lymph # 1.5 K/mm3 (1.2-5.4) 10/27/16 07:06 [place] # 0.3 K/mm3 (0.0-0.8) 10/27/16 07:06 Eos # 0.0 K/mm3 (0.0-0.4) 10/27/16 07:06 Baso # 0.2 K/mm3 (0.0-0.1) H 10/27/16 07:06 Seg Neutrophils % 79.8 % (40.0-70.0) H 10/27/16 07:06 Seg Neutrophils # 7.8 K/mm3 (1.8-7.7) H 10/27/16 07:06 PT 23.2 Sec. (12.2-14.9) H 10/28/16 05:35 INR 2.05 (0.87-1.13) H 10/28/16 05:35 APTT 27.2 Sec. (24.2-36.6) 10/26/16 03:21 POC ABG pH 7.484 (7.35-7.45) H 10/26/16 04:26 POC ABG pCO2 36.0 (35-45) 10/26/16 04:26 POC ABG pO2 71 (80-105) L 10/26/16 04:26 POC ABG HCO3 27.0 10/26/16 04:26 POC ABG Total CO2 28 10/26/16 04:26 POC ABG O2 Sat 95 10/26/16 04:26 POC ABG Base Excess 4 10/26/16 04:26 FiO2 28 % 10/26/16 04:26 Sodium 140 mmol/L (137-145) 10/27/16 07:06 Potassium 3.5 mmol/L (3.6-5.0) L 10/27/16 07:06 Chloride 101.2 mmol/L (98-107) 10/27/16 07:06 Carbon Dioxide 24 mmol/L (22-30) 10/27/16 07:06 Anion Gap 18 mmol/L 10/27/16 07:06 BUN 16 mg/dL (7-17) 10/27/16 07:06 Creatinine 0.9 mg/dL (0.7-1.2) 10/27/16 07:06 Estimated GFR > 60 ml/min 10/27/16 07:06 BUN/Creatinine Ratio 17.77 % 10/27/16 07:06 Glucose 186 mg/dL (65-100) H 10/27/16 07:06 Lactic Acid 1.7 mmol/L (0.7-2.0) 10/26/16 03:21 Calcium 8.8 mg/dL (8.4-10.2) 10/27/16 07:06 Magnesium 2.7 mg/dL (1.7-2.3) H 10/26/16 03:21 Total Bilirubin 0.4 mg/dL (0.1-1.2) 10/27/16 07:06 AST 10 units/L (5-40) 10/27/16 07:06 ALT 7 units/L (7-56) 10/27/16 07:06 Alkaline Phosphatase 76 units/L (35-129) 10/27/16 07:06 Total Creatine Kinase 53 units/L (30-135) 10/26/16 13:37 CK-MB (CK-2) 2.1 ng/mL (0.0-4.0) 10/26/16 13:37 CK-MB (CK-2) Rel Index 3.9 (0-4) 10/26/16 13:37 Troponin T < 0.010 ng/mL (0.00-0.029) 10/26/16 13:37 NT-Pro-B Natriuret Pep 1945 pg/mL (0-900) H 10/26/16 03:21 Total Protein 7.9 g/dL (6.3-8.2) 10/27/16 07:06 Albumin 3.3 g/dL (3.9-5) L 10/27/16 07:06 Albumin/Globulin Ratio 0.7 % 10/27/16 07:06
[2016-10-28] MEDS: CARDURA PO SCH (21:32)
[2016-10-29] MEDS: DUONEB 0.5 MG-3 MG/3 ML SOLN IH SCH ×7 (02:27→21:13)
[2016-10-29] MEDS: COUMADIN PO SCH ×2 (08:09→17:53)
[2016-10-29 08:15] LABS: INR 2.5 (0.87-1.13)
[2016-10-29] MEDS: HABITROL TD SCH (11:20)
[2016-10-29] MEDS: LEVAQUIN PO SCH (11:20)
[2016-10-29] MEDS: PROTONIX PO SCH (11:21)
[2016-10-29] MEDS: NORVASC PO SCH (11:21)
[2016-10-29] MEDS: COLACE PO SCH ×2 (11:21→22:23)
[2016-10-29] MEDS: KEPPRA PO SCH ×2 (11:21→22:22)
[2016-10-29] MEDS: CARDIZEM CD PO SCH (11:21)
--- NOTE | 2016-10-29 15:37 | Progress Note ---
Hospitalist Physical - Constitutional Vitals: Temp Pulse Resp BP Pulse Ox 97.8 F 108 H 18 134/62 96 10/29/16 08:00 10/29/16 14:03 10/29/16 14:03 10/29/16 08:00 10/29/16 08:00 Results - Labs CBC & Chem 7: 10/27/16 07:06 10/27/16 07:06 Labs: Laboratory Last Values WBC 9.7 K/mm3 (4.5-11.0) 10/27/16 07:06 RBC 5.49 M/mm3 (3.65-5.03) H 10/27/16 07:06 Hgb 13.9 gm/dl (10.1-14.3) 10/27/16 07:06 Hct 41.5 % (30.3-42.9) 10/27/16 07:06 MCV 76 fl (79-97) L 10/27/16 07:06 MCH 25 pg (28-32) L 10/27/16 07:06 MCHC 34 % (30-34) 10/27/16 07:06 RDW 16.3 % (13.2-15.2) H 10/27/16 07:06 Plt Count 234 K/mm3 (140-440) 10/27/16 07:06 Lymph % (Auto) 15.1 % (13.4-35.0) 10/27/16 07:06 [place] % (Auto) 3.4 % (0.0-7.3) 10/27/16 07:06 Eos % (Auto) 0.0 % (0.0-4.3) 10/27/16 07:06 Baso % (Auto) 1.7 % (0.0-1.8) 10/27/16 07:06 Lymph # 1.5 K/mm3 (1.2-5.4) 10/27/16 07:06 [place] # 0.3 K/mm3 (0.0-0.8) 10/27/16 07:06 Eos # 0.0 K/mm3 (0.0-0.4) 10/27/16 07:06 Baso # 0.2 K/mm3 (0.0-0.1) H 10/27/16 07:06 Seg Neutrophils % 79.8 % (40.0-70.0) H 10/27/16 07:06 Seg Neutrophils # 7.8 K/mm3 (1.8-7.7) H 10/27/16 07:06 PT 27.1 Sec. (12.2-14.9) H 10/29/16 07:07 INR 2.50 (0.87-1.13) H 10/29/16 07:07 APTT 27.2 Sec. (24.2-36.6) 10/26/16 03:21 POC ABG pH 7.484 (7.35-7.45) H 10/26/16 04:26 POC ABG pCO2 36.0 (35-45) 10/26/16 04:26 POC ABG pO2 71 (80-105) L 10/26/16 04:26 POC ABG HCO3 27.0 10/26/16 04:26 POC ABG Total CO2 28 10/26/16 04:26 POC ABG O2 Sat 95 10/26/16 04:26 POC ABG Base Excess 4 10/26/16 04:26 FiO2 28 % 10/26/16 04:26 Sodium 140 mmol/L (137-145) 10/27/16 07:06 Potassium 3.5 mmol/L (3.6-5.0) L 10/27/16 07:06 Chloride 101.2 mmol/L (98-107) 10/27/16 07:06 Carbon Dioxide 24 mmol/L (22-30) 10/27/16 07:06 Anion Gap 18 mmol/L 10/27/16 07:06 BUN 16 mg/dL (7-17) 10/27/16 07:06 Creatinine 0.9 mg/dL (0.7-1.2) 10/27/16 07:06 Estimated GFR > 60 ml/min 10/27/16 07:06 BUN/Creatinine Ratio 17.77 % 10/27/16 07:06 Glucose 186 mg/dL (65-100) H 10/27/16 07:06 Lactic Acid 1.7 mmol/L (0.7-2.0) 10/26/16 03:21 Calcium 8.8 mg/dL (8.4-10.2) 10/27/16 07:06 Magnesium 2.7 mg/dL (1.7-2.3) H 10/26/16 03:21 Total Bilirubin 0.4 mg/dL (0.1-1.2) 10/27/16 07:06 AST 10 units/L (5-40) 10/27/16 07:06 ALT 7 units/L (7-56) 10/27/16 07:06 Alkaline Phosphatase 76 units/L (35-129) 10/27/16 07:06 Total Creatine Kinase 53 units/L (30-135) 10/26/16 13:37 CK-MB (CK-2) 2.1 ng/mL (0.0-4.0) 10/26/16 13:37 CK-MB (CK-2) Rel Index 3.9 (0-4) 10/26/16 13:37 Troponin T < 0.010 ng/mL (0.00-0.029) 10/26/16 13:37 NT-Pro-B Natriuret Pep 1945 pg/mL (0-900) H 10/26/16 03:21 Total Protein 7.9 g/dL (6.3-8.2) 10/27/16 07:06 Albumin 3.3 g/dL (3.9-5) L 10/27/16 07:06 Albumin/Globulin Ratio 0.7 % 10/27/16 07:06
--- NOTE | 2016-10-29 18:08 | Progress Note ---
Assessment and Plan - Patient Problems (1) COPD exacerbation Current Visit: Yes Status: Acute Plan to address problem: Continue with bronchodilators, supplemental oxygen as indicated. Start steroid taper in the morning Short course of antibitoics VTE prophylaxis- is on chronic anticoagulation Supplemental oxygen to keep O2 sats>90% PT/OT and mobility (2) Dyspnea Current Visit: Yes Status: Acute Qualifiers: Dyspnea type: unspecified Qualified Code(s): R06.00 - Dyspnea, unspecified (3) Acute bronchitis Current Visit: Yes Status: Acute Subjective Date of service: 10/29/16 Principal diagnosis: acute hypoxia, COPD Interval history: This is 76 year old female admitted through emergency room with shortness of breath and left sided pleuritic chest pain.Patient has cough with productive white yellow sputum. Patient has history of smoking and COPD.Patients other medical problems Hypertension ,Hyperlipidemia and Gerd.Patient hypoxic on arrival to the emergency room. O2 saturation running in 80s.Patient also has history of atrial fibrillation,stroke,Multiple myeloma .Patient has no known drug allergies. 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 Patient has exercise stress test reported normal perfusion scan. Patient is on 2 litres O2. O2 saturation 99%. Chest xray reported. Moderate cardiomegaly. No acute findings. Today 10/27/16- states she feels much better. Able to lie flat. She denies any cough, no chest pain, no shortness of breath, no fvers or chills. States she does not like the hospital food so her appetite is not what it should be. Today 10/29/2016- continues to feels much better. off supplemental oxygen Objective Vital Signs - 12hr 10/29/16 10/29/16 10/29/16 08:00 08:34 08:45 Temperature 97.8 F Pulse Rate [ 89 87 Anterior Bilateral Throughout] Pulse Rate [ 92 H Right Radial] Respiratory 16 Rate Respiratory 18 18 Rate [Anterior Bilateral Throughout] Blood Pressure 134/62 [Right Arm] O2 Sat by Pulse 96 Oximetry 10/29/16 10/29/16 10/29/16 13:53 14:03 17:00 Temperature 97.9 F Pulse Rate [ 110 H 108 H Anterior Bilateral Throughout] Pulse Rate [ 88 Right Radial] Respiratory 16 Rate Respiratory 18 18 Rate [Anterior Bilateral Throughout] Blood Pressure 128/60 [Right Arm] O2 Sat by Pulse Oximetry Constitutional: no acute distress, alert, asleep Eyes: non-icteric ENT: oropharynx moist Neck: supple, no JVD Effort: normal Ascultation: Bilateral: diminished breath sounds Cardiovascular: regular rate and rhythm Gastrointestinal: normoactive bowel sounds, soft, non-tender, non-distended Integumentary: normal Extremities: no cyanosis, no edema Neurologic: normal mental status, non-focal exam, pupils equal and round, CN II- XII normal Psychiatric: mood appropriate CBC and BMP: 10/27/16 07:06 10/27/16 07:06 ABG, PT/INR, D-dimer: ABG POC ABG pH 7.484 (7.35-7.45) H 10/26/16 04:26 POC ABG pCO2 36.0 (35-45) 10/26/16 04:26 POC ABG pO2 71 (80-105) L 10/26/16 04:26 POC ABG HCO3 27.0 10/26/16 04:26 POC ABG Total CO2 28 10/26/16 04:26 POC ABG O2 Sat 95 10/26/16 04:26 PT/INR, D-dimer PT 27.1 Sec. (12.2-14.9) H 10/29/16 07:07 INR 2.50 (0.87-1.13) H 10/29/16 07:07 Abnormal lab findings: Abnormal Labs 10/27/16 10/27/16 10/27/16 07:06 07:06 07:06 RBC 5.49 H MCV 76 L MCH 25 L RDW 16.3 H Baso # 0.2 H Seg Neutrophils % 79.8 H Seg Neutrophils # 7.8 H PT 18.1 H INR 1.50 H Potassium 3.5 L Glucose 186 H Albumin 3.3 L 10/28/16 10/29/16 05:35 07:07 RBC MCV MCH RDW Baso # Seg Neutrophils % Seg Neutrophils # PT 23.2 H 27.1 H INR 2.05 H 2.50 H Potassium Glucose Albumin
[2016-10-29] MEDS: CARDURA PO SCH (22:22)
[2016-10-30] MEDS: DUONEB 0.5 MG-3 MG/3 ML SOLN IH SCH ×5 (01:55→21:55)
[2016-10-30 09:05] LABS: INR 2.82 (0.87-1.13)
[2016-10-30 09:09] LABS: BUN/Creatinine Ratio 28.46; Calcium 8.8 mg/dL (8.4-10.2); Potassium 3.3 mmol/L (3.6-5.0)
[2016-10-30] MEDS: COLACE PO SCH ×2 (09:37→21:44)
[2016-10-30] MEDS: KEPPRA PO SCH ×2 (09:37→21:44)
[2016-10-30] MEDS: CARDIZEM CD PO SCH (09:37)
[2016-10-30] MEDS: PROTONIX PO SCH (09:38)
[2016-10-30] MEDS: NORVASC PO SCH (09:38)
[2016-10-30] MEDS: HABITROL TD SCH (09:38)
[2016-10-30] MEDS: LEVAQUIN PO SCH (09:38)
--- NOTE | 2016-10-30 10:48 | Progress Note ---
Assessment and Plan - Patient Problems (1) COPD exacerbation Current Visit: Yes Status: Acute (2) Dyspnea Current Visit: Yes Status: Acute Qualifiers: Dyspnea type: unspecified Qualified Code(s): R06.00 - Dyspnea, unspecified (3) Acute bronchitis Current Visit: Yes Status: Acute Subjective Date of service: 10/30/16 Principal diagnosis: acute hypoxia, COPD Interval history: This is 76 year old female admitted through emergency room with shortness of breath and left sided pleuritic chest pain.Patient has cough with productive white yellow sputum. Patient has history of smoking and COPD.Patients other medical problems Hypertension ,Hyperlipidemia and Gerd.Patient hypoxic on arrival to the emergency room. O2 saturation running in 80s.Patient also has history of atrial fibrillation,stroke,Multiple myeloma .Patient has no known drug allergies. 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 Patient has exercise stress test reported normal perfusion scan. Patient is on 2 litres O2. O2 saturation 99%. Chest xray reported. Moderate cardiomegaly. No acute findings. Today 10/27/16- states she feels much better. Able to lie flat. She denies any cough, no chest pain, no shortness of breath, no fvers or chills. States she does not like the hospital food so her appetite is not what it should be. Today 10/29/2016- continues to feels much better. off supplemental oxygen Today 10/30/2016- seen and examined. Vitals, labs, medications, electronic chart notes reviewed. Continues to clinically improve Objective Vital Signs - 12hr 10/29/16 10/30/16 10/30/16 23:00 01:55 02:06 Temperature 98.3 F Pulse Rate [ 101 H 116 H Anterior Bilateral Throughout] Pulse Rate [ 103 H Right Radial] Respiratory 20 Rate Respiratory 18 18 Rate [Anterior Bilateral Throughout] Blood Pressure 156/80 [Right Arm] O2 Sat by Pulse 98 Oximetry 10/30/16 08:00 Temperature 98.2 F Pulse Rate [ Anterior Bilateral Throughout] Pulse Rate [ 90 Right Radial] Respiratory 18 Rate Respiratory Rate [Anterior Bilateral Throughout] Blood Pressure 152/78 [Right Arm] O2 Sat by Pulse 98 Oximetry Constitutional: no acute distress, alert, asleep Eyes: non-icteric ENT: oropharynx moist Neck: supple, no JVD Effort: normal Ascultation: Bilateral: diminished breath sounds Cardiovascular: regular rate and rhythm Gastrointestinal: normoactive bowel sounds, soft, non-tender, non-distended Integumentary: normal Extremities: no cyanosis, no edema Neurologic: normal mental status, non-focal exam, pupils equal and round, CN II- XII normal Psychiatric: mood appropriate CBC and BMP: 10/27/16 07:06 10/30/16 08:20 ABG, PT/INR, D-dimer: ABG POC ABG pH 7.484 (7.35-7.45) H 10/26/16 04:26 POC ABG pCO2 36.0 (35-45) 10/26/16 04:26 POC ABG pO2 71 (80-105) L 10/26/16 04:26 POC ABG HCO3 27.0 10/26/16 04:26 POC ABG Total CO2 28 10/26/16 04:26 POC ABG O2 Sat 95 10/26/16 04:26 PT/INR, D-dimer PT 29.8 Sec. (12.2-14.9) H 10/30/16 08:20 INR 2.82 (0.87-1.13) H 10/30/16 08:20 Abnormal lab findings: Abnormal Labs 10/27/16 10/27/16 10/27/16 07:06 07:06 07:06 RBC 5.49 H MCV 76 L MCH 25 L RDW 16.3 H Baso # 0.2 H Seg Neutrophils % 79.8 H Seg Neutrophils # 7.8 H PT 18.1 H INR 1.50 H Sodium Potassium 3.5 L Chloride BUN Creatinine Glucose 186 H Albumin 3.3 L 10/28/16 10/29/16 10/30/16 05:35 07:07 08:20 RBC MCV MCH RDW Baso # Seg Neutrophils % Seg Neutrophils # PT 23.2 H 27.1 H 29.8 H INR 2.05 H 2.50 H 2.82 H Sodium Potassium Chloride BUN Creatinine Glucose Albumin 10/30/16 08:20 RBC MCV MCH RDW Baso # Seg Neutrophils % Seg Neutrophils # PT INR Sodium 136 L Potassium 3.3 L Chloride 97.0 L BUN 37 H Creatinine 1.3 H Glucose 147 H Albumin
[2016-10-30] MEDS: NACL 0.9% 1000 ML 1,000 ML IV SCH ×2 (11:58→21:58)
[2016-10-30] MEDS: DELTASONE PO SCH (11:59)
[2016-10-30] MEDS ORDERED: K-DUR PO ONE (12:00)
[2016-10-30] MEDS ORDERED: COUMADIN PO SCH (17:00)
--- NOTE | 2016-10-30 19:21 | Progress Note ---
Assessment and Plan Assessment and plan: 1. COPD exac Hospitalist Physical - Constitutional Vitals: Temp Pulse Resp BP Pulse Ox 98.4 F 86 16 144/80 98 10/30/16 16:00 10/30/16 16:00 10/30/16 16:00 10/30/16 16:00 10/30/16 08:00 Results - Labs CBC & Chem 7: 10/27/16 07:06 10/30/16 08:20 Labs: Laboratory Last Values WBC 9.7 K/mm3 (4.5-11.0) 10/27/16 07:06 RBC 5.49 M/mm3 (3.65-5.03) H 10/27/16 07:06 Hgb 13.9 gm/dl (10.1-14.3) 10/27/16 07:06 Hct 41.5 % (30.3-42.9) 10/27/16 07:06 MCV 76 fl (79-97) L 10/27/16 07:06 MCH 25 pg (28-32) L 10/27/16 07:06 MCHC 34 % (30-34) 10/27/16 07:06 RDW 16.3 % (13.2-15.2) H 10/27/16 07:06 Plt Count 234 K/mm3 (140-440) 10/27/16 07:06 Lymph % (Auto) 15.1 % (13.4-35.0) 10/27/16 07:06 [place] % (Auto) 3.4 % (0.0-7.3) 10/27/16 07:06 Eos % (Auto) 0.0 % (0.0-4.3) 10/27/16 07:06 Baso % (Auto) 1.7 % (0.0-1.8) 10/27/16 07:06 Lymph # 1.5 K/mm3 (1.2-5.4) 10/27/16 07:06 [place] # 0.3 K/mm3 (0.0-0.8) 10/27/16 07:06 Eos # 0.0 K/mm3 (0.0-0.4) 10/27/16 07:06 Baso # 0.2 K/mm3 (0.0-0.1) H 10/27/16 07:06 Seg Neutrophils % 79.8 % (40.0-70.0) H 10/27/16 07:06 Seg Neutrophils # 7.8 K/mm3 (1.8-7.7) H 10/27/16 07:06 PT 29.8 Sec. (12.2-14.9) H 10/30/16 08:20 INR 2.82 (0.87-1.13) H 10/30/16 08:20 APTT 27.2 Sec. (24.2-36.6) 10/26/16 03:21 POC ABG pH 7.484 (7.35-7.45) H 10/26/16 04:26 POC ABG pCO2 36.0 (35-45) 10/26/16 04:26 POC ABG pO2 71 (80-105) L 10/26/16 04:26 POC ABG HCO3 27.0 10/26/16 04:26 POC ABG Total CO2 28 10/26/16 04:26 POC ABG O2 Sat 95 10/26/16 04:26 POC ABG Base Excess 4 10/26/16 04:26 FiO2 28 % 10/26/16 04:26 Sodium 136 mmol/L (137-145) L 10/30/16 08:20 Potassium 3.3 mmol/L (3.6-5.0) L 10/30/16 08:20 Chloride 97.0 mmol/L (98-107) L 10/30/16 08:20 Carbon Dioxide 22 mmol/L (22-30) 10/30/16 08:20 Anion Gap 20 mmol/L 10/30/16 08:20 BUN 37 mg/dL (7-17) H 10/30/16 08:20 Creatinine 1.3 mg/dL (0.7-1.2) H 10/30/16 08:20 Estimated GFR 48 ml/min 10/30/16 08:20 BUN/Creatinine Ratio 28.46 % 10/30/16 08:20 Glucose 147 mg/dL (65-100) H 10/30/16 08:20 Lactic Acid 1.7 mmol/L (0.7-2.0) 10/26/16 03:21 Calcium 8.8 mg/dL (8.4-10.2) 10/30/16 08:20 Magnesium 2.7 mg/dL (1.7-2.3) H 10/26/16 03:21 Total Bilirubin 0.4 mg/dL (0.1-1.2) 10/27/16 07:06 AST 10 units/L (5-40) 10/27/16 07:06 ALT 7 units/L (7-56) 10/27/16 07:06 Alkaline Phosphatase 76 units/L (35-129) 10/27/16 07:06 Total Creatine Kinase 53 units/L (30-135) 10/26/16 13:37 CK-MB (CK-2) 2.1 ng/mL (0.0-4.0) 10/26/16 13:37 CK-MB (CK-2) Rel Index 3.9 (0-4) 10/26/16 13:37 Troponin T < 0.010 ng/mL (0.00-0.029) 10/26/16 13:37 NT-Pro-B Natriuret Pep 1945 pg/mL (0-900) H 10/26/16 03:21 Total Protein 7.9 g/dL (6.3-8.2) 10/27/16 07:06 Albumin 3.3 g/dL (3.9-5) L 10/27/16 07:06 Albumin/Globulin Ratio 0.7 % 10/27/16 07:06
[2016-10-30] MEDS: CARDURA PO SCH (21:44)
[2016-10-31] MEDS: DUONEB 0.5 MG-3 MG/3 ML SOLN IH SCH ×3 (02:19→13:24)
[2016-10-31 08:08] LABS: INR 3.11 (0.87-1.13)
[2016-10-31 08:23] LABS: BUN/Creatinine Ratio 32.72; Calcium 8.4 mg/dL (8.4-10.2); Chloride 103.4 mmol/L (98-107); Potassium 3.9 mmol/L (3.6-5.0)
[2016-10-31] MEDS: COLACE PO SCH (09:35)
[2016-10-31] MEDS: PROTONIX PO SCH (09:35)
[2016-10-31] MEDS: DELTASONE PO SCH (09:35)
[2016-10-31] MEDS: NORVASC PO SCH (09:35)
[2016-10-31] MEDS: KEPPRA PO SCH (09:35)
[2016-10-31] MEDS: CARDIZEM CD PO SCH (09:35)
[2016-10-31] MEDS: LEVAQUIN PO SCH (09:35)
[2016-10-31] MEDS: HABITROL TD SCH (10:20)
--- NOTE | 2016-10-31 13:05 | Discharge Summary ---
Providers - Providers Date of Admission: 10/26/16 07:18 Date of discharge: 10/31/16 Attending physician: MATEO WOOD 10/26/16 Consult to Cardiac Rehabilitation [CONS] Routine Reason For Exam: Phase I Primary care physician: CUSTOMER EXPERIENCE ANALYST Hospitalization Reason for admission: SOB Condition: Stable Disposition: DISCHARGED TO HOME OR SELFCARE Time spent for discharge: 35 min Exam - Constitutional Vitals: Temp Pulse Resp BP Pulse Ox 98.1 F 81 17 129/65 96 10/31/16 07:55 10/31/16 08:18 10/31/16 08:18 10/31/16 07:55 10/31/16 08:21 Plan Activity: advance as tolerated, fall precautions Diet: low cholesterol, low salt Follow up with: PRIMARY CARE,MD [Primary Care Provider] - 3-5 Days Forms: Warfarin Discharge Instruction Prescriptions: AtorvaSTATin [Lipitor] 40 mg PO QHS #30 tablet Diltiazem Cd [Cardizem CD] 180 mg PO QDAY #30 capsule Doxazosin Mesylate [Cardura] 2 mg PO DAILY #30 tablet Docusate Sodium [Colace CAP] 100 mg PO BID #60 capsule Warfarin [Coumadin] 4 mg PO DAILY@1700 #7 tablet predniSONE [Deltasone] 40 mg PO QDAY #6 tablet levETIRAcetam [Keppra TAB] 1,500 mg PO BID #60 tablet Esomeprazole Magnesium [NexIUM] 40 mg PO QDAY #30 capsule. amLODIPine [Norvasc] 10 mg PO DAILY #30 tablet Budesonide [Pulmicort Flexhaler] 90 mcg IH DAILY #1 [email or web address]
[2016-10-31 14:25] VITALS: BP 124/68
[2016-10-31] MEDS ORDERED: COUMADIN PO SCH (17:00)
== END 2016-10-31 17:03 | disposition home health service (06) | DRG 189 ==
LOC: ED 01:04 → 3A 07:18
PROVIDERS: ADMIT Internal Medicine; ATTEND Internal Medicine
PROC: 4A033R1 Measurement of Arterial Saturation, Peripheral, Percutaneous Approach (ICD-10-PCS; principal; 2016-10-26)
DX: J96.01 Acute respiratory failure with hypoxia (principal); J44.0 Chronic obstructive pulmonary disease with (acute) lower respiratory infection; I69.354 Hemiplegia and hemiparesis following cerebral infarction affecting left non-dominant side; J44.1 Chronic obstructive pulmonary disease with (acute) exacerbation; E87.6 Hypokalemia; I10 Essential (primary) hypertension; K21.9 Gastro-esophageal reflux disease without esophagitis; E78.5 Hyperlipidemia, unspecified; I25.10 Atherosclerotic heart disease of native coronary artery without angina pectoris; I48.91 Unspecified atrial fibrillation; F17.200 Nicotine dependence, unspecified, uncomplicated; E78.00 Pure hypercholesterolemia, unspecified; M19.90 Unspecified osteoarthritis, unspecified site; J20.9 Acute bronchitis, unspecified; Z79.899 Other long term (current) drug therapy; Z90.49 Acquired absence of other specified parts of digestive tract; Z82.49 Family history of ischemic heart disease and other diseases of the circulatory system; Z71.6 Tobacco abuse counseling; Z79.01 Long term (current) use of anticoagulants; Z98.890 Other specified postprocedural states
CPT/HCPCS: 36415; 51702; 71010; 78452; 80048; 80053; 82140; 82550; 82553; 82803; 83735; 83880; 84484; 85025; 85610; 85730; 87400; 93005; 93010; 93017; 93306; 94640; 94644; 94760; 96372; 96374; 96375; A9270-GY; A9502; J1650; J1940; J1956; J2405; J2785; J2930; J7030; J7512

== ENCOUNTER 2016-11-08 12:22 | Emergency (ER) | payer MEDICARE ==
[2016-11-08] MEDS ORDERED: ZOFRAN IV ONE (13:52)
--- NOTE | 2016-11-08 13:55 | Emergency Department Report ---
HPI - General Chief Complaint: Weakness Time Seen by Provider: 11/08/16 13:32 - HPI HPI: Room 1 The patient is a 76-year-old female presenting with a chief complaint of weakness. The patient was recently admitted to the hospital for COPD exacerbation and was discharged approximately one week ago. The patient states she has "felt weak" since her discharge. Patient initially denied any other complaints but does admit to nausea without vomiting. Patient missed a cough that is productive of green sputum. Patient denies chest pain, shortness of breath, abdominal pain, diarrhea, bright red blood per rectum or melena. Patient does admit to subjective fever. When asked how she is feeling currently the patient states "I feel all right except for the nausea." Location: [see above] Duration: One week Quality: Weakness Severity: Moderate Modifying factors: [see above] Context: [see above] Mode of transportation: [not driving] ED Past Medical Hx - Past Medical History Previous Medical History?: Yes Hx Hypertension: Yes Hx CVA: Yes (left side weakness) Hx Heart Attack/AMI: Yes Hx Renal Disease: Yes Hx Arthritis: Yes Hx Seizures: Yes (1 seizure) Additional medical history: Atrial fibrillation, GI bleeding - Surgical History Additional Surgical History: D&C - Family History Family history: no significant - Social History Smoking Status: Current Every Day Smoker Substance Use Type: None - Medications Home Medications: Home Medications Medication Instructions Recorded Confirmed Last Taken Type Oxycodone HCl [Oxecta] 5 mg PO Q6H PRN #10 tablet.orl 01/29/15 Unknown Rx AtorvaSTATin [Lipitor] 40 mg PO QHS #30 tablet 10/31/16 Unknown Rx Budesonide [Pulmicort Flexhaler] 90 mcg IH DAILY #1 aer.[email or web address] 10/31/16 Unknown Rx Diltiazem Cd [Cardizem CD] 180 mg PO QDAY #30 capsule 10/31/16 Unknown Rx Docusate Sodium [Colace CAP] 100 mg PO BID #60 capsule 10/31/16 Unknown Rx Doxazosin Mesylate [Cardura] 2 mg PO DAILY #30 tablet 10/31/16 Unknown Rx Esomeprazole Magnesium [NexIUM] 40 mg PO QDAY #30 capsule. 10/31/16 Unknown Rx Warfarin [Coumadin] 4 mg PO DAILY@1700 #7 tablet 10/31/16 Unknown Rx amLODIPine [Norvasc] 10 mg PO DAILY #30 tablet 10/31/16 Unknown Rx levETIRAcetam [Keppra TAB] 1,500 mg PO BID #60 tablet 10/31/16 Unknown Rx predniSONE [Deltasone] 40 mg PO QDAY #6 tablet 10/31/16 Unknown Rx Promethazine [Phenergan TAB] 25 mg PO Q6HR PRN #20 tab 11/08/16 Unknown Rx Sulfamethoxazole/Trimethoprim 1 each PO BID #20 tablet 11/08/16 Unknown Rx [Bactrim DS TAB] ED Review of Systems ROS: Stated complaint: LETHARGIC Other details as noted in HPI Comment: All other systems reviewed and negative Constitutional: weakness Eyes: denies: eye pain, eye discharge, vision change ENT: denies: ear pain, throat pain Respiratory: cough. denies: shortness of breath, wheezing Cardiovascular: denies: chest pain, palpitations Endocrine: no symptoms reported Gastrointestinal: nausea. denies: abdominal pain, vomiting Genitourinary: denies: urgency, dysuria, discharge Musculoskeletal: denies: back pain, joint swelling, arthralgia Skin: denies: rash, lesions Neurological: denies: headache, weakness, paresthesias Psychiatric: denies: anxiety, depression Hematological/Lymphatic: denies: easy bleeding, easy bruising Physical Exam - Physical Exam Vital Signs: Vital Signs 11/08/16 12:40 Temperature 98.7 F Pulse Rate 74 Respiratory 18 Rate Blood Pressure 130/90 O2 Sat by Pulse 96 Oximetry Physical Exam: GENERAL: The patient is well-developed well-nourished female lying on stretcher not appearing to be in acute distress. [] HEENT: Normocephalic. Atraumatic. Extraocular motions are intact. Patient has moist mucous membranes. NECK: Supple. Trachea midline CHEST/LUNGS: Clear to auscultation. There is no respiratory distress noted. HEART/CARDIOVASCULAR: Irregularly irregular. There is no tachycardia. There is no gallop rub or murmur. ABDOMEN: Abdomen is soft, nontender. Patient has normal bowel sounds. There is no abdominal distention. SKIN: There is no rash. There is no diaphoresis. NEURO: The patient is awake, alert, and oriented. The patient is cooperative. The patient has normal speech MUSCULOSKELETAL: There is no evidence of acute injury. ED Course Vital Signs 11/08/16 12:40 Temperature 98.7 F Pulse Rate 74 Respiratory 18 Rate Blood Pressure 130/90 O2 Sat by Pulse 96 Oximetry - Consultations Consultation #1: 11/08/16 18:40 Patient states she feels improved and is "common along." Systolic blood pressure 112 ED Medical Decision Making - Lab Data Result diagrams: 11/08/16 14:38 11/08/16 14:38 Laboratory Tests 11/08/16 11/08/16 11/08/16 14:38 14:38 14:38 WBC 13.7 H RBC 4.89 Hgb 12.3 Hct 36.8 MCV 75 L MCH 25 L MCHC 33 RDW 16.3 H Plt Count 162 Lymph % (Auto) 8.1 L [place] % (Auto) 5.9 Eos % (Auto) 0.1 Baso % (Auto) 0.3 Lymph # 1.1 L [place] # 0.8 Eos # 0.0 Baso # 0.0 Seg Neutrophils % 85.6 H Seg Neutrophils # 11.8 H PT INR APTT Sodium 140 Potassium 3.8 Chloride 102.4 Carbon Dioxide 22 Anion Gap 19 BUN 20 H Creatinine 1.4 H Estimated GFR 44 BUN/Creatinine Ratio 14.28 Glucose 121 H Lactic Acid 1.0 Calcium 8.7 Magnesium 1.9 Total Bilirubin 1.0 AST 8 ALT 8 Alkaline Phosphatase 68 Ammonia Total Creatine Kinase CK-MB (CK-2) CK-MB (CK-2) Rel Index Troponin T Total Protein 6.5 Albumin 2.9 L Albumin/Globulin Ratio 0.8 TSH Free T4 Urine Color Urine Turbidity Urine pH Ur Specific [place] Urine Protein Urine Glucose (UA) Urine Ketones Urine Blood Urine Nitrite Urine Bilirubin Urine Urobilinogen Ur Leukocyte Esterase Urine WBC (Auto) Urine RBC (Auto) U Epithel Cells (Auto) Urine Bacteria (Auto) Urine Mucus Salicylates Urine Opiates Screen Urine Methadone Screen Acetaminophen Ur Barbiturates Screen Ur Phencyclidine Scrn Ur Amphetamines Screen U Benzodiazepines Scrn Urine Cocaine Screen U Marijuana (THC) Screen Drugs of Abuse Note Plasma/Serum Alcohol 11/08/16 11/08/16 11/08/16 14:38 14:38 14:38 WBC RBC Hgb Hct MCV MCH MCHC RDW Plt Count Lymph % (Auto) [place] % (Auto) Eos % (Auto) Baso % (Auto) Lymph # [place] # Eos # Baso # Seg Neutrophils % Seg Neutrophils # PT INR APTT Sodium Potassium Chloride Carbon Dioxide Anion Gap BUN Creatinine Estimated GFR BUN/Creatinine Ratio Glucose Lactic Acid Calcium Magnesium Total Bilirubin AST ALT Alkaline Phosphatase Ammonia Total Creatine Kinase CK-MB (CK-2) CK-MB (CK-2) Rel Index Troponin T Total Protein Albumin Albumin/Globulin Ratio TSH Free T4 Urine Color Urine Turbidity Urine pH Ur Specific [place] Urine Protein Urine Glucose (UA) Urine Ketones Urine Blood Urine Nitrite Urine Bilirubin Urine Urobilinogen Ur Leukocyte Esterase Urine WBC (Auto) Urine RBC (Auto) U Epithel Cells (Auto) Urine Bacteria (Auto) Urine Mucus Salicylates < 0.3 L Urine Opiates Screen Urine Methadone Screen Acetaminophen < 15.0 Ur Barbiturates Screen Ur Phencyclidine Scrn Ur Amphetamines Screen U Benzodiazepines Scrn Urine Cocaine Screen U Marijuana (THC) Screen Drugs of Abuse Note Plasma/Serum Alcohol < 0.01 11/08/16 11/08/16 11/08/16 14:38 14:38 14:38 WBC RBC Hgb Hct MCV MCH MCHC RDW Plt Count Lymph % (Auto) [place] % (Auto) Eos % (Auto) Baso % (Auto) Lymph # [place] # Eos # Baso # Seg Neutrophils % Seg Neutrophils # PT 17.1 H INR 1.40 H APTT 29.2 Sodium Potassium Chloride Carbon Dioxide Anion Gap BUN Creatinine Estimated GFR BUN/Creatinine Ratio Glucose Lactic Acid Calcium Magnesium Total Bilirubin AST ALT Alkaline Phosphatase Ammonia 37.0 Total Creatine Kinase 28 L CK-MB (CK-2) < 1.0 CK-MB (CK-2) Rel Index 3.5 Troponin T < 0.010 Total Protein Albumin Albumin/Globulin Ratio TSH Free T4 Urine Color Urine Turbidity Urine pH Ur Specific [place] Urine Protein Urine Glucose (UA) Urine Ketones Urine Blood Urine Nitrite Urine Bilirubin Urine Urobilinogen Ur Leukocyte Esterase Urine WBC (Auto) Urine RBC (Auto) U Epithel Cells (Auto) Urine Bacteria (Auto) Urine Mucus Salicylates Urine Opiates Screen Urine Methadone Screen Acetaminophen Ur Barbiturates Screen Ur Phencyclidine Scrn Ur Amphetamines Screen U Benzodiazepines Scrn Urine Cocaine Screen U Marijuana (THC) Screen Drugs of Abuse Note Plasma/Serum Alcohol 11/08/16 11/08/16 11/08/16 14:38 15:55 15:55 WBC RBC Hgb Hct MCV MCH MCHC RDW Plt Count Lymph % (Auto) [place] % (Auto) Eos % (Auto) Baso % (Auto) Lymph # [place] # Eos # Baso # Seg Neutrophils % Seg Neutrophils # PT INR APTT Sodium Potassium Chloride Carbon Dioxide Anion Gap BUN Creatinine Estimated GFR BUN/Creatinine Ratio Glucose Lactic Acid Calcium Magnesium Total Bilirubin AST ALT Alkaline Phosphatase Ammonia Total Creatine Kinase CK-MB (CK-2) CK-MB (CK-2) Rel Index Troponin T Total Protein Albumin Albumin/Globulin Ratio TSH 1.580 Free T4 1.60 H Urine Color [place] Urine Turbidity Clear Urine pH 6.0 Ur Specific [place] 1.021 Urine Protein 100 mg/dl Urine Glucose (UA) Neg Urine Ketones Neg Urine Blood Neg Urine Nitrite Neg Urine Bilirubin Neg Urine Urobilinogen 4.0 Ur Leukocyte Esterase Mod Urine WBC (Auto) 63.0 H Urine RBC (Auto) 28.0 U Epithel Cells (Auto) < 1.0 Urine Bacteria (Auto) 4+ Urine Mucus 3+ Salicylates Urine Opiates Screen Presumptive negative Urine Methadone Screen Presumptive negative Acetaminophen Ur Barbiturates Screen Presumptive negative Ur Phencyclidine Scrn Presumptive negative Ur Amphetamines Screen Presumptive negative U Benzodiazepines Scrn Presumptive negative Urine Cocaine Screen Presumptive negative U Marijuana (THC) Screen Presumptive negative Drugs of Abuse Note Disclamer Plasma/Serum Alcohol 11/08/16 16:22 WBC RBC Hgb Hct MCV MCH MCHC RDW Plt Count Lymph % (Auto) [place] % (Auto) Eos % (Auto) Baso % (Auto) Lymph # [place] # Eos # Baso # Seg Neutrophils % Seg Neutrophils # PT INR APTT Sodium Potassium Chloride Carbon Dioxide Anion Gap BUN Creatinine Estimated GFR BUN/Creatinine Ratio Glucose Lactic Acid 0.9 Calcium Magnesium Total Bilirubin AST ALT Alkaline Phosphatase Ammonia Total Creatine Kinase CK-MB (CK-2) CK-MB (CK-2) Rel Index Troponin T Total Protein Albumin Albumin/Globulin Ratio TSH Free T4 Urine Color Urine Turbidity Urine pH Ur Specific [place] Urine Protein Urine Glucose (UA) Urine Ketones Urine Blood Urine Nitrite Urine Bilirubin Urine Urobilinogen Ur Leukocyte Esterase Urine WBC (Auto) Urine RBC (Auto) U Epithel Cells (Auto) Urine Bacteria (Auto) Urine Mucus Salicylates Urine Opiates Screen Urine Methadone Screen Acetaminophen Ur Barbiturates Screen Ur Phencyclidine Scrn Ur Amphetamines Screen U Benzodiazepines Scrn Urine Cocaine Screen U Marijuana (THC) Screen Drugs of Abuse Note Plasma/Serum Alcohol - EKG Data -: EKG Interpreted by Ga Rate: normal - EKG Data When compared to previous EKG there are: previous EKG unavailable Interpretation: other (atrial fibrillation at 65 bpm. No ischemic changes seen) - Differential Diagnosis symptomatic anemia, coagulopathy, hypothyroidism, electrolyte imbalance Critical care attestation.: If time is entered above; I have spent that time in minutes in the direct care of this critically ill patient, excluding procedure time. ED Disposition Clinical Impression: UTI (lower urinary tract infection), Leukocytosis Disposition: DISCHARGED TO HOME OR SELFCARE Is pt being admited?: No Does the pt Need Aspirin: No Condition: Stable Instructions: Urinary Tract Infection in Women (ED) Additional Instructions: Return to the emergency department immediately should you develop worsening symptoms, fever, inability to tolerate food or liquid or any other concerns. Prescriptions: Promethazine [Phenergan TAB] 25 mg PO Q6HR PRN #20 tab PRN Reason: Nausea Sulfamethoxazole/Trimethoprim [Bactrim DS TAB] 1 each PO BID #20 tablet Referrals: BRYCE ADORNO MD [Primary Care Provider] - 3-5 Days Time of Disposition: 18:42
[2016-11-08 15:14] LABS: Basophils % (Auto) 0.3 % (0.0-1.8); Eosinophils % (Auto) 0.1 % (0.0-4.3); Hematocrit 36.8 % (30.3-42.9); Hemoglobin 12.3 gm/dl (10.1-14.3); Mean Corpuscular HGB Conc 33 % (30-34); Mean Corpuscular Volume 75 fl (79-97); Platelet Count 162 K/mm3 (140-440); Red Blood Count 4.89 M/mm3 (3.65-5.03); Red Cell Distribution Width 16.3 % (13.2-15.2); White Blood Count 13.7 K/mm3 (4.5-11.0)
[2016-11-08 15:16] LABS: Mean Corpuscular Hemoglobin 25 pg (28-32)
[2016-11-08 15:24] LABS: INR 1.4 (0.87-1.13)
[2016-11-08 15:25] LABS: Partial Thromboplastin Time 29.2 Sec. (24.2-36.6)
[2016-11-08 15:30] LABS: Albumin 2.9 g/dL (3.9-5); Albumin/Globulin Ratio 0.8 %; BUN/Creatinine Ratio 14.28; Calcium 8.7 mg/dL (8.4-10.2); Chloride 102.4 mmol/L (98-107); Magnesium 1.9 mg/dL (1.7-2.3); Potassium 3.8 mmol/L (3.6-5.0); Total Protein 6.5 g/dL (6.3-8.2)
[2016-11-08 15:31] LABS: Creatine Kinase 28 units/L (30-135)
[2016-11-08 15:35] LABS: Creatine Kinase MB < 1.0 ng/mL (0.0-4.0)
[2016-11-08 16:11] LABS: Urine Drugs of Abuse Note Disclamer
[2016-11-08 16:23] LABS: Bacteria,Urine 4+ /HPF (Negative); Bilirubin,Urine NEG (Negative); Blood,Urine NEG (Negative); Ketones,Urine NEG (Negative); Leukocyte Esterase,Urine MOD (Negative); Mucus,Urine 3+ /HPF; Nitrite,Urine NEG (Negative)
[2016-11-08] MEDS ORDERED: ROCEPHIN/NS 1 GM/50 ML 50 ML IV ONE (16:35)
--- NOTE | 2016-11-08 17:38 | Admit Criteria Form ---
Admission Criteria Documentation: HEMODYNAMIC INSTABILITY Clinical Indications for Inpatient Care (Place 'X' for any and all applicable criteria): Ongoing inpatient care may be indicated for hemodynamic instability as indicated by ANY ONE of the following (1)(2)(3)(4)(10): [X ]I) Marked hemodynamic change from baseline (eg, SBP 20 mm Hg below patient's usual pressure) [ ]II) New SBP less than 90 mm Hg or mean arterial pressure less than 70 mm Hg [B](15) [ ]IIII) Symptomatic heart rate greater than 100 or less than 60 beats per minute unresponsive to treatment (eg, analgesia, fluids) [ ]IV) Inadequate perfusion as indicated by ANY ONE of the following: [ ]a) Lactic acidosis, with lactic acid greater than 18 mg/dL (2 mmol/ L) or base excess less than -5 mEq/L [ ]b) New abnormal capillary refill (longer than 3 seconds) [ ]c) New altered mental status [ ]d) Reduced urine output [ ]V) Orthostatic vital sign changes [B] that are symptomatic and unresponsive to treatment (eg, fluids) [ ]) IV inotropic or vasopressor medication required(26) Extended stay beyond goal length of stay for primary condition may be needed until ALL of the following are present(1)(2)(3): [ ]a) Heart rate > 60 and < 100 beats per minute or patient is clinically stable at current rate (eg, baseline) [ ]b) SBP >100 mm Hg and <160 mm Hg or patient is clinically stable at current pressure (eg, baseline) [ ]c) DBP greater than 50 mm Hg and less than 100 mm Hg or patient is clinically stable at current pressure (eg, baseline) [ ]d) Urine output greater than 0.5 mL/kg per hour [ ]e) Room air oxygen saturation 90% or greater or at baseline [ ]f) Orthostatic vital sign changes absent, asymptomatic, at baseline, or manageable at lower level of care [ ]g) Medical comorbidities manageable at lower level of care The original [employer] content created by [employer] has been revised. The portions of the content which have been revised are identified through the use of italic text or in bold, and [employer] [facility] [employer] [employer] has neither reviewed nor approved the modified material. All other unmodified content is copyright [employer]. Please see references footnoted in the original [facility] edition 2016
[2016-11-08] MEDS ORDERED: NACL 0.9% 1000 ML 1,000 ML IV ONE (17:46)
[2016-11-09 01:52] VITALS: BP 116/72
== END 2016-11-09 01:47 | disposition home or self-care (01) ==
LOC: ED 12:22
DX: N39.0 Urinary tract infection, site not specified (principal); D72.829 Elevated white blood cell count, unspecified; I10 Essential (primary) hypertension; I25.2 Old myocardial infarction; Z86.73 Personal history of transient ischemic attack (TIA), and cerebral infarction without residual deficits; F17.200 Nicotine dependence, unspecified, uncomplicated
CPT/HCPCS: 36415; 80053; 80307; 81001; 82140; 82550; 82553; 82962; 83735; 84439; 84443; 84484; 85025; 85610; 85730; 87040; 93005; 93010; 96361; 96365; 96375; 99285; G0480; J0696; J2405; 80320

== ENCOUNTER 2019-07-04 01:02 | Inpatient (IN) | payer MEDICARE ==
[2019-07-04] MEDS ORDERED: SODIUM CHLORIDE 0.9% 1000 ML 1,000 ML IV ONE (01:41)
[2019-07-04] MEDS ORDERED: dilTIAZem 25 MG/5 ML INJ IV ONE (01:50)
[2019-07-04 01:51] LABS: Basophils # (Auto) 0.1 K/mm3 (0.0-0.1); Basophils % (Auto) 0.9 % (0.0-1.8); Hemoglobin 14.4 gm/dl (10.1-14.3); Lymphocytes % (Auto) 6.4 % (13.4-35.0); Mean Corpuscular HGB Conc 33 % (30-34); Mean Corpuscular Volume 72 fl (79-97); Monocytes # (Auto) 0.8 K/mm3 (0.0-0.8); Platelet Count 398 K/mm3 (140-440); Red Blood Count 5.95 M/mm3 (3.65-5.03); Red Cell Distribution Width 19.2 % (13.2-15.2)
[2019-07-04] MEDS ORDERED: ONDANSETRON 4 MG/2 ML INJ IV ONE (01:51)
--- NOTE | 2019-07-04 02:00 | Emergency Department Report ---
ED N/V/D HPI - General Chief complaint: Abdominal Pain Stated complaint: N/V/D Time Seen by Provider: 07/04/19 01:12 Source: patient, family, EMS, old records reviewed (last visit in 2016) Mode of arrival: Stretcher Limitations: Physical Limitation - History of Present Illness Initial comments: 79-year-old female with a past medical history CVA with residual left-sided paralysis/nonambulatory, as per chart multiple myeloma and treatment as per family, ureteral stents, atrial fibrillation on Coumadin, seizure disorder, chronic renal deficiency, and hypertension presents to the hospital with complains of nausea, vomiting, diarrhea, and diminished mental status. Around noon patient developed nausea, vomiting, and diarrhea. No hematemesis, melena, or hematochezia reported. Around 3:00 patient's mental status declined and she was less talkative and family noticed a left sided facial droop. Patient is currently slow to respond to questions but oriented 3. She also can follow commands. She has been intermittently compliant with the medications because she refuses to take them at times. Complains of mid abdominal pain rated 5/10 in intensity. Her previous abdominal surgeries reported. 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 - Related Data Home Medications Medication Instructions Recorded Confirmed Last Taken Hydralazine HCl 50 mg PO TID 07/04/19 07/04/19 Unknown Lisinopril/Hydrochlorothiazide 1 tab PO DAILY 07/04/19 07/04/19 Unknown [Zestoretic 20-25 mg] Metoprolol [Lopressor TAB] 50 mg PO BID 07/04/19 07/04/19 Unknown Warfarin [Coumadin] 5 mg PO DAILY 07/04/19 07/04/19 Unknown Previous Rx's Medication Instructions Recorded Last Taken Type Doxazosin Mesylate [Cardura] 2 mg PO DAILY #30 tablet 10/31/16 Unknown Rx amLODIPine [Norvasc] 10 mg PO DAILY #30 tablet 10/31/16 Unknown Rx Allergies Allergy/AdvReac Type Severity Reaction Status Date / Time No Known Allergies Allergy Verified 04/18/14 13:51 ED Review of Systems ROS: Stated complaint: N/V/D Other details as noted in HPI Comment: Unobtainable due to pts medical conditions ED Past Medical Hx - Past Medical History Previous Medical History?: Yes Hx Hypertension: Yes Hx CVA: Yes (left side weakness) Hx Heart Attack/AMI: Yes Hx Diabetes: No Hx Renal Disease: Yes Hx Arthritis: Yes Hx Seizures: Yes (1 seizure) Hx HIV: No Additional medical history: Atrial fibrillation, GI bleeding, multiple myeloma - Surgical History Past Surgical History?: Yes Hx Pacemaker: No Hx Cholecystectomy: Yes Additional Surgical History: D&C, 2 stents - Social History Smoking Status: Former Smoker Substance Use Type: None - Medications Home Medications: Home Medications Medication Instructions Recorded Confirmed Last Taken Type Doxazosin Mesylate [Cardura] 2 mg PO DAILY #30 tablet 10/31/16 07/04/19 Unknown Rx amLODIPine [Norvasc] 10 mg PO DAILY #30 tablet 10/31/16 07/04/19 Unknown Rx Hydralazine HCl 50 mg PO TID 07/04/19 07/04/19 Unknown History Lisinopril/Hydrochlorothiazide 1 tab PO DAILY 07/04/19 07/04/19 Unknown History [Zestoretic 20-25 mg] Metoprolol [Lopressor TAB] 50 mg PO BID 07/04/19 07/04/19 Unknown History Warfarin [Coumadin] 5 mg PO DAILY 07/04/19 07/04/19 Unknown History ED Physical Exam - General Limitations: Physical Limitation - Other Other exam information: Gen.: No acute distress Head: Atraumatic Eyes: Normal appearance ENT: Dry mucous membranes Neck: Normal appearance, no posterior midline tenderness, no meningismus Chest: Clear to auscultation bilaterally Cardiovascular: Irregular rhythm, tachycardic Abdomen: Normal appearance, soft,mid abdominal tenderness, no rebound or guarding, normal bowel sounds Back: Normal appearance, nontender Extremity: Left arm and leg paralysis Neuro: Slightly lethargic but easily arousable and oriented 3. Speech is slow but clear, left-sided facial droop noted with smiling. Patient has left arm and leg paralysis with 1/5 movement which is chronic. Psychiatric: Appropriate Skin: No rash ED Course Vital Signs 07/04/19 07/04/19 07/04/19 01:12 02:00 02:20 Temperature 98.2 F Pulse Rate 127 H 155 H 132 H Respiratory 24 38 H Rate Blood Pressure 177/114 199/140 199/108 Blood Pressure 177/114 [Left] O2 Sat by Pulse 98 95 Oximetry 07/04/19 07/04/19 07/04/19 02:42 03:01 04:00 Temperature Pulse Rate 89 95 H 111 H Respiratory 30 H 34 H Rate Blood Pressure 154/63 158/64 180/82 Blood Pressure [Left] O2 Sat by Pulse 95 97 Oximetry - Reevaluation(s) Reevaluation #1: 07/04/19 02:05 Patient heart rate ranging from the 120s to 150s on a monitor. Positive A. fib, hypertensive ED Medical Decision Making - Lab Data Result diagrams: 07/04/19 01:40 07/04/19 02:04 Lab Results 07/04/19 07/04/19 07/04/19 Range/Units 01:40 01:40 02:04 WBC 16.4 H (4.5-11.0) K/mm3 RBC 5.95 H (3.65-5.03) M/mm3 Hgb 14.4 H (10.1-14.3) gm/dl Hct 43.0 H (30.3-42.9) % MCV 72 L (79-97) fl MCH 24 L (28-32) pg MCHC 33 (30-34) % RDW 19.2 H (13.2-15.2) % Plt Count 398 (140-440) K/mm3 Lymph % (Auto) 6.4 L (13.4-35.0) % [place] % (Auto) 5.0 (0.0-7.3) % Eos % (Auto) 0.0 (0.0-4.3) % Baso % (Auto) 0.9 (0.0-1.8) % Lymph # 1.0 L (1.2-5.4) K/mm3 [place] # 0.8 (0.0-0.8) K/mm3 Eos # 0.0 (0.0-0.4) K/mm3 Baso # 0.1 (0.0-0.1) K/mm3 Seg Neutrophils % 87.7 H (40.0-70.0) % Seg Neutrophils # 14.3 H (1.8-7.7) K/mm3 PT 13.2 (12.2-14.9) Sec. INR 1.03 (0.87-1.13) APTT 24.8 (24.2-36.6) Sec. Sodium 139 (137-145) mmol/L Potassium 4.2 (3.6-5.0) mmol/L Chloride 105.2 (98-107) mmol/L Carbon Dioxide 19 L (22-30) mmol/L Anion Gap 19 mmol/L BUN 42 H (7-17) mg/dL Creatinine 1.6 H (0.7-1.2) mg/dL Estimated GFR 38 ml/min BUN/Creatinine Ratio 26 % Glucose 187 H (65-100) mg/dL Calcium 9.4 (8.4-10.2) mg/dL Total Bilirubin 0.60 (0.1-1.2) mg/dL AST 17 (5-40) units/L ALT 10 (7-56) units/L Alkaline Phosphatase 99 (35-129) units/L Troponin T < 0.010 (0.00-0.029) ng/mL Total Protein 10.2 H (6.3-8.2) g/dL Albumin 3.2 L (3.9-5) g/dL Albumin/Globulin Ratio 0.5 % Lipase 26 (13-60) units/L TSH (0.270-4.200) mlU/mL Free T4 (0.76-1.46) ng/dL Urine Color (Yellow) Urine Turbidity (Clear) Urine pH (5.0-7.0) Ur Specific [place] (1.003-1.030) Urine Protein (Negative) mg/dL Urine Glucose (UA) (Negative) mg/dL Urine Ketones (Negative) mg/dL Urine Blood (Negative) Urine Nitrite (Negative) Urine Bilirubin (Negative) Urine Urobilinogen (<2.0) mg/dL Ur Leukocyte Esterase (Negative) Urine WBC (Auto) (0.0-6.0) /HPF Urine RBC (Auto) (0.0-6.0) /HPF Urine Bacteria (Auto) (Negative) /HPF Urine WBC Clumps /HPF Urine Mucus /HPF 07/04/19 07/04/19 Range/Units 02:04 04:00 WBC (4.5-11.0) K/mm3 RBC (3.65-5.03) M/mm3 Hgb (10.1-14.3) gm/dl Hct (30.3-42.9) % MCV (79-97) fl MCH (28-32) pg MCHC (30-34) % RDW (13.2-15.2) % Plt Count (140-440) K/mm3 Lymph % (Auto) (13.4-35.0) % [place] % (Auto) (0.0-7.3) % Eos % (Auto) (0.0-4.3) % Baso % (Auto) (0.0-1.8) % Lymph # (1.2-5.4) K/mm3 [place] # (0.0-0.8) K/mm3 Eos # (0.0-0.4) K/mm3 Baso # (0.0-0.1) K/mm3 Seg Neutrophils % (40.0-70.0) % Seg Neutrophils # (1.8-7.7) K/mm3 PT (12.2-14.9) Sec. INR (0.87-1.13) APTT (24.2-36.6) Sec. Sodium (137-145) mmol/L Potassium (3.6-5.0) mmol/L Chloride (98-107) mmol/L Carbon Dioxide (22-30) mmol/L Anion Gap mmol/L BUN (7-17) mg/dL Creatinine (0.7-1.2) mg/dL Estimated GFR ml/min BUN/Creatinine Ratio % Glucose (65-100) mg/dL Calcium (8.4-10.2) mg/dL Total Bilirubin (0.1-1.2) mg/dL AST (5-40) units/L ALT (7-56) units/L Alkaline Phosphatase (35-129) units/L Troponin T (0.00-0.029) ng/mL Total Protein (6.3-8.2) g/dL Albumin (3.9-5) g/dL Albumin/Globulin Ratio % Lipase (13-60) units/L TSH 3.250 (0.270-4.200) mlU/mL Free T4 1.37 (0.76-1.46) ng/dL Urine Color Red (Yellow) Urine Turbidity Turbid (Clear) Urine pH 6.0 (5.0-7.0) Ur Specific [place] 1.012 (1.003-1.030) Urine Protein 100 mg/dl (Negative) mg/dL Urine Glucose (UA) Neg (Negative) mg/dL Urine Ketones Neg (Negative) mg/dL Urine Blood Lg (Negative) Urine Nitrite Neg (Negative) Urine Bilirubin Neg (Negative) Urine Urobilinogen < 2.0 (<2.0) mg/dL Ur Leukocyte Esterase Mod (Negative) Urine WBC (Auto) > 182.0 H (0.0-6.0) /HPF Urine RBC (Auto) > 182.0 (0.0-6.0) /HPF Urine Bacteria (Auto) 4+ (Negative) /HPF Urine WBC Clumps 3+ /HPF Urine Mucus 3+ /HPF - EKG Data -: EKG Interpreted by Me (afib) EKG shows normal: ST-T waves (no stemi) Rate: tachycardia (128) - EKG Data When compared to previous EKG there are: no significant change - Radiology Data Radiology results: report reviewed CHEST 1 VIEW 07/04/2019 2:08 AM INDICATION / CLINICAL INFORMATION: n,v tach ycardia. COMPARISON: Chest x-ray on 10/26/2016. FINDINGS: SUPPORT DEVICES: None. HEART / MEDIASTINUM: Stable mild cardiomegaly.. Atherosclerosis in the thoracic aorta. LUNGS / PLEURA: No significant pulmonary or pleural abnormality. No pneumothorax. ADDITIONAL FINDINGS: No significant additional findings. IMPRESSION: 1. No acute findings. CT head/brain wo con INDICATION: Left facial droop.. TECHNIQUE: Routine CT head without contrast. All CT scans at this location are performed using CT dose reduction for ALARA by means of automated exposure control. COMPARISON: Prior head CT on 09/06/2014. FINDINGS: BRAIN / INTRACRANIAL CONTENTS: No acute hemorrhage, mass effect, midline shift, or hydrocephalus. No appreciable acute large territorial or lacunar infarct. Stable chronic infarcts in the bilateral anterior cerebral artery territories, bilateral occipital lobes, and right parietal mid convexity. Stable chronic infarct in the left posterior-inferior cerebellar hemisphere. ORBITS: No significant abnormality of visualized orbits. SINUSES / MASTOIDS: No significant abnormality of visualized sinuses and mastoid air cells. ADDITIONAL FINDINGS: None. IMPRESSION: 1. No acute hemorrhage or appreciable acute infarct by CT. 2. Multifocal chronic infarcts as described. ct abd and pelvis noncontrast: Pression: Mild fat stranding adjacent to the rectum suggesting proctitis without obstruction, pneumatosis, or free air. Small pericardial effusion. Bilateral ureteral stents in place without hydronephrosis. Small bilateral intrarenal stones present. - Medical Decision Making Patient is alert and oriented 3. Presented with A. fib with RVR with medication noncompliance. Patient received Cardizem bolus of 20 mg followed by drip with improvement in blood pressure and heart rate. Patient has history of previous CVA with significant debility. Questionable new left-sided facial droop which presented outside of 4.5 hour window. Patient has multiple chronic infarcts on his skin. Subtherapeutic INR which increases risk of stroke secondary to A. fib. I suspect the patient's change in mental status related to UTI. Rocephin provided, cultures pending. Patient also having nausea, vomiting, and diarrhea with CT findings of possible proctitis. Zofran provided and normal saline initiated. Hospitalist to admit. - Differential Diagnosis CVA, ICH, encephalopathy, UTI, diverticulitis, appendicitis, gastroenteriti Critical Care Time: Yes Critical care time in (mins) excluding proc time.: 35 Critical care attestation.: If time is entered above; I have spent that time in minutes in the direct care of this critically ill patient, excluding procedure time. ED Disposition Clinical Impression: Atrial fibrillation with RVR, Subtherapeutic international normalized ratio (INR), Renal insufficiency, Noncompliance with medication regimen, UTI (urinary tract infection), Hemiparesis affecting left side as late effect of stroke, Mental status, decreased, Proctitis, Retained ureteral stent Disposition: -09 OP ADMIT IP TO THIS HOSP Is pt being admited?: Yes Condition: Stable Time of Disposition: 05:24 (Dr Jay/hosp)
[2019-07-04 02:15] LABS: INR 1.03 (0.87-1.13)
[2019-07-04 02:16] LABS: Partial Thromboplastin Time 24.8 Sec. (24.2-36.6)
[2019-07-04] MEDS: dilTIAZem/D5W 100 MG/100 ML BAG IV SCH ×2 (02:42→10:50)
[2019-07-04 02:53] LABS: Alanine Aminotransferase 10 units/L (7-56); Albumin 3.2 g/dL (3.9-5); BUN/Creatinine Ratio 26; Blood Urea Nitrogen 42 mg/dL (7-17); Calcium 9.4 mg/dL (8.4-10.2); Hemolysis Index 1
[2019-07-04 02:59] LABS: Free T4 (Free Thyroxine) 1.37 ng/dL (0.76-1.46)
--- NOTE | 2019-07-04 03:13 | XRay Report ---
CHEST 1 VIEW 07/04/2019 2:08 AM INDICATION / CLINICAL INFORMATION: n,v tachycardia. COMPARISON: Chest x-ray on 10/26/2016. FINDINGS: SUPPORT DEVICES: None. HEART / MEDIASTINUM: Stable mild cardiomegaly.. Atherosclerosis in the thoracic aorta. LUNGS / PLEURA: No significant pulmonary or pleural abnormality. No pneumothorax. ADDITIONAL FINDINGS: No significant additional findings. IMPRESSION: 1. No acute findings. Signer Name: Juno Ness MD Signed: 07/04/2019 3:09 AM Workstation Name: [id number]
--- NOTE | 2019-07-04 04:12 | Cat Scan Report ---
CT head/brain wo con INDICATION: Left facial droop.. TECHNIQUE: Routine CT head without contrast. All CT scans at this location are performed using CT dos e reduction for ALARA by means of automated exposure control. COMPARISON: Prior head CT on 09/06/2014. FINDINGS: BRAIN / INTRACRANIAL CONTENTS: No acute hemorrhage, mass effect, midline shift, or hydrocephalus. No appreciable acute large territorial or lacunar infarct. Stable chronic infarcts in the bilateral ante rior cerebral artery territories, bilateral occipital lobes, and right parietal mid convexity. Stable chronic infarct in the left posterior-inferior cerebellar hemisphere. ORBITS: No significant abnormality of visualized orbits. SINUSES / MASTOIDS: No significant abnormality of visualized sinuses and mastoid air cells. ADDITIONAL FINDINGS: None. IMPRESSION: 1. No acute hemorrhage or appreciable acute infarct by CT. 2. Multifocal chronic infarcts as described. Signer Name: Juno Ness MD Signed: 07/04/2019 4:07 AM Workstation Name: [id number]
[2019-07-04 04:48] LABS: Bacteria,Urine 4+ /HPF (Negative); Bilirubin,Urine NEG (Negative); Blood,Urine LG (Negative); Color,Urine Red (Yellow); Mucus,Urine 3+ /HPF; Urobilinogen,Urine < 2.0 mg/dL (<2.0)
[2019-07-04 04:54] LABS: RBC,Urine > 182.0 /HPF (0.0-6.0); WBC,Urine > 182.0 /HPF (0.0-6.0)
[2019-07-04] MEDS ORDERED: cefTRIAXone/NS 1 GM/50 ML 1 GM/50 ML BAG IV ONE (05:00)
[2019-07-04] MEDS ORDERED: ACETAMINOPHEN 325 MG TAB PO PRN (05:16)
--- NOTE | 2019-07-04 05:32 | History and Physical Report ---
<KEITH MCKEON - Last Filed: 07/04/19 05:42> History of Present Illness Date of examination: 07/04/19 Date of admission: 07/04/2019 Chief complaint: AMS History of present illness: 79-year-old -Martiniquais female with history of CVA with left-sided paralysis, chronic debility, multiple myeloma status post treatment, bilateral ureteral stents, CKD, atrial fibrillation on Coumadin, seizure, hypertension who presents to [facility] ED with complaints of n/v/d, abdominal pain and altered mental status. Pt is awake, alert and oriented x3, she has a delayed response. Her family is at the bedside and has assisted with providing history. According to pt's family, pt starting experiencing n/v/d and abdominal discomfort around noon yesterday. The pain is located in the mid abdomen. She describes it as cramping and rates it 5/10. About 3 hours later they noticed a change in her mentation. She was less talkative with a questionable left sided facial droop. Denies: fever, dysuria, hematuria, or headache Past History Past Medical History: atrial fib (on coumadin), hypertension, renal failure, sei zures, stroke (with left sided paralysis), other (debility, multiple myeloma s/p treatment, ureteral stents, GI bleeding) Past Surgical History: cholecystectomy, Other ( D&C, stent x2) Social history: Lives alone (with daughter), lives with family, other (Former smoker) Family history: no significant family history Medications and Allergies Allergies Allergy/AdvReac Type Severity Reaction Status Date / Time No Known Allergies Allergy Verified 04/18/14 13:51 Home Medications Medication Instructions Recorded Confirmed Last Taken Type Doxazosin Mesylate [Cardura] 2 mg PO DAILY #30 tablet 10/31/16 07/04/19 Unknown Rx amLODIPine [Norvasc] 10 mg PO DAILY #30 tablet 10/31/16 07/04/19 Unknown Rx Hydralazine HCl 50 mg PO TID 07/04/19 07/04/19 Unknown History Lisinopril/Hydrochlorothiazide 1 tab PO DAILY 07/04/19 07/04/19 Unknown History [Zestoretic 20-25 mg] Metoprolol [Lopressor TAB] 50 mg PO BID 07/04/19 07/04/19 Unknown History Warfarin [Coumadin] 5 mg PO DAILY 07/04/19 07/04/19 Unknown History Active Meds: Active Medications Acetaminophen (Tylenol) 650 mg PO Q4H PRN PRN Reason: Pain MILD(1-3)/Fever >100.5/BYRD Docusate Sodium (Colace) 100 mg PO BID [facility] Diltiazem HCl (Cardizem/D5w 100mg/100ml) 100 mg in 100 mls @ 5 mls/hr IV TITR [facility]; Protocol Last Titration: 07/04/19 05:00 Dose: 15 mg/hr, 15 mls/hr Documented by: Ceftriaxone Sodium (Rocephin/Ns 1 Gm/50 Ml) 1 gm in 50 mls @ 100 mls/hr IV Q24HR [facility]; Protocol Miscellaneous Medication (Doxazosin Mesylate [Cardura]) 2 mg PO DAILY [facility] Ondansetron HCl (Zofran) 4 mg IV Q6H PRN PRN Reason: Nausea And Vomiting Sodium Chloride (Sodium Chloride Flush Syringe 10 Ml) 10 ml IV BID [facility] Sodium Chloride (Sodium Chloride Flush Syringe 10 Ml) 10 ml IV PRN PRN PRN Reason: LINE FLUSH Warfarin Sodium (Coumadin) 5 mg PO DAILY [facility]; Protocol Review of Systems All systems: negative Constitutional: weakness Gastrointestinal: abdominal pain, nausea, vomiting, diarrhea Exam - Physical Exam Narrative exam: Physical exam General appearance: Present: No acute distress, alert and oriented 3 with delayed response, well developed, pleasant, adult -Martiniquais female - EENT Eyes: Present: PERRL, EOM intact, ENT: hearing intact, missing teeth - Neck Neck: Present: supple, normal ROM - Respiratory Respiratory effort: Non-labored Respiratory: diminished bases - Cardiovascular Heart rate: 128 (bpm) Rhythm: Afib Heart Sounds: Present: - Extremities Extremities: no ischemia, pulses intact, left sided paralysis - Peripheral Assessment Peripheral Pulses: within normal limits - Abdominal General gastrointestinal: soft, non-tender, normal bowel sounds - Integumentary Integumentary: Present: warm, dry, - Musculoskeletal Musculoskeletal: able to move right upper and lower extremities, amb with manual wheelchair -Neurological Neurological: CN II-XII grossly intact - Psychiatric Psychiatric: cooperative - Constitutional Vitals: Temp Pulse Resp BP Pulse Ox 98.2 F 111 H 34 H 180/82 97 07/04/19 01:12 07/04/19 04:00 07/04/19 04:00 07/04/19 04:00 07/04/19 04:00 Results - Labs CBC & Chem 7: 07/04/19 01:40 07/04/19 02:04 Labs: Laboratory Last Values WBC 16.4 K/mm3 (4.5-11.0) H 07/04/19 01:40 RBC 5.95 M/mm3 (3.65-5.03) H 07/04/19 01:40 Hgb 14.4 gm/dl (10.1-14.3) H 07/04/19 01:40 Hct 43.0 % (30.3-42.9) H 07/04/19 01:40 MCV 72 fl (79-97) L 07/04/19 01:40 MCH 24 pg (28-32) L 07/04/19 01:40 MCHC 33 % (30-34) 07/04/19 01:40 RDW 19.2 % (13.2-15.2) H 07/04/19 01:40 Plt Count 398 K/mm3 (140-440) 07/04/19 01:40 Lymph % (Auto) 6.4 % (13.4-35.0) L 07/04/19 01:40 [place] % (Auto) 5.0 % (0.0-7.3) 07/04/19 01:40 Eos % (Auto) 0.0 % (0.0-4.3) 07/04/19 01:40 Baso % (Auto) 0.9 % (0.0-1.8) 07/04/19 01:40 Lymph # 1.0 K/mm3 (1.2-5.4) L 07/04/19 01:40 [place] # 0.8 K/mm3 (0.0-0.8) 07/04/19 01:40 Eos # 0.0 K/mm3 (0.0-0.4) 07/04/19 01:40 Baso # 0.1 K/mm3 (0.0-0.1) 07/04/19 01:40 Seg Neutrophils % 87.7 % (40.0-70.0) H 07/04/19 01:40 Seg Neutrophils # 14.3 K/mm3 (1.8-7.7) H 07/04/19 01:40 PT 13.2 Sec. (12.2-14.9) 07/04/19 01:40 INR 1.03 (0.87-1.13) 07/04/19 01:40 APTT 24.8 Sec. (24.2-36.6) 07/04/19 01:40 Sodium 139 mmol/L (137-145) 07/04/19 02:04 Potassium 4.2 mmol/L (3.6-5.0) 07/04/19 02:04 Chloride 105.2 mmol/L (98-107) 07/04/19 02:04 Carbon Dioxide 19 mmol/L (22-30) L 07/04/19 02:04 19 mmol/L 07/04/19 02:04 BUN 42 mg/dL (7-17) H 07/04/19 02:04 1.6 mg/dL (0.7-1.2) H 07/04/19 02:04 Estimated GFR 38 ml/min 07/04/19 02:04 26 % 07/04/19 02:04 Glucose 187 mg/dL (65-100) H 07/04/19 02:04 Calcium 9.4 mg/dL (8.4-10.2) 07/04/19 02:04 0.60 mg/dL (0.1-1.2) 07/04/19 02:04 AST 17 units/L (5-40) 07/04/19 02:04 ALT 10 units/L (7-56) 07/04/19 02:04 99 units/L (35-129) 07/04/19 02:04 < 0.010 ng/mL (0.00-0.029) 07/04/19 02:04 10.2 g/dL (6.3-8.2) H 07/04/19 02:04 3.2 g/dL (3.9-5) L 07/04/19 02:04 0.5 % 07/04/19 02:04 26 units/L (13-60) 07/04/19 02:04 TSH 3.250 mlU/mL (0.270-4.200) 07/04/19 02:04 Free T4 1.37 ng/dL (0.76-1.46) 07/04/19 02:04 Red (Yellow) 07/04/19 04:00 Turbid (Clear) 07/04/19 04:00 6.0 (5.0-7.0) 07/04/19 04:00 Ur Specific [place] 1.012 (1.003-1.030) 07/04/19 04:00 100 mg/dl mg/dL (Negative) 07/04/19 04:00 Neg mg/dL (Negative) 07/04/19 04:00 Neg mg/dL (Negative) 07/04/19 04:00 Lg (Negative) 07/04/19 04:00 Neg (Negative) 07/04/19 04:00 Neg (Negative) 07/04/19 04:00 < 2.0 mg/dL (<2.0) 07/04/19 04:00 Ur Leukocyte Esterase Mod (Negative) 07/04/19 04:00 > 182.0 /HPF (0.0-6.0) H 07/04/19 04:00 > 182.0 /HPF (0.0-6.0) 07/04/19 04:00 4+ /HPF (Negative) 07/04/19 04:00 3+ /HPF 07/04/19 04:00 3+ /HPF 07/04/19 04:00 - Imaging and Cardiology Imaging and Cardiology: CXR: FINDINGS: SUPPORT DEVICES: None. HEART / MEDIASTINUM: Stable mild cardiomegaly.. Atherosclerosis in the thoracic aorta. LUNGS / PLEURA: No significant pulmonary or pleural abnormality. No pneumothorax. ADDITIONAL FINDINGS: No significant additional findings. IMPRESSION: 1. No acute findings. CT head/brain wo con CT HEAD FINDINGS: BRAIN / INTRACRANIAL CONTENTS: No acute hemorrhage, mass effect, midline shift, or hydrocephalus. No appreciable acute large territorial or lacunar infarct. Stable chronic infarcts in the bilateral anterior cerebral artery territories, bilateral occipital lobes, and right parietal mid convexity. Stable chronic infarct in the left posterior-inferior cerebellar hemisphere. ORBITS: No significant abnormality of visualized orbits. SINUSES / MASTOIDS: No significant abnormality of visualized sinuses and mastoid air cells. ADDITIONAL FINDINGS: None. IMPRESSION: 1. No acute hemorrhage or appreciable acute infarct by CT. 2. Multifocal chronic infarcts as described. CT Abdomen/ Pelvis Impressions: 1. Mild fat stranding adjacent to the rectum suggesting proctitis without obstruction,pneumatosis, or free air. 2. Small pericardial effusion 3. Bilateral ureteral stents without hydronephrosis. Small bilateral intrarenal stones present. Assessment and Plan Assessment and plan: 79-year-old -Martiniquais female with history of CVA with left-sided paralysis, chronic debility, multiple myeloma status post treatment, bilateral ureteral stents, CKD, atrial fibrillation on Coumadin, seizure, hypertension who presents to [facility] ED with complaints of n/v/d, abdominal pain and altered mental status. UTI -Urine WBC >182 -Urine culture pending -Start on IV Abx Acute metabolic encephalopathy -CT head negative -Likely due to UTI -Continue supportive care -Neuro checks Proctitis -CT abdomen/pelvis showed mild fat stranding adjacent to the rectum suggesting proctitis -Pt c/o n/v/d and abdominal pain -Continue supportive care -On IV antibiotics and Flagyl -GI consult Atrial fibrillation -with tachycardia @ 155bpm -on Cardizem gtt -Continue Coumadin Hypertensive urgency -BP on admission 199/108 -Hx Hypertension -Continue to monitor BP -on Cardizem gtt PHILIPPE -Superimposed CKD -Cr on admission 1.6 -Bilateral ureteral stents in place -Hydrate with IVF -Avoid nephrotoxin agents -Renal dose all meds -Nephrology consulted Chronic debility -Ambulates with a wheelchair at baseline -PT/OT eval pending DVT PPX -Anticoagulated on Coumadin Advance Directives: No VTE prophylaxis?: Mechanical Plan of care discussed with patient/family: Yes <ELISEO PADILLA - Last Filed: 07/09/19 23:07> Medications and Allergies Active Meds: Active Medications Acetaminophen (Tylenol) 650 mg PO Q4H PRN PRN Reason: Pain MILD(1-3)/Fever >100.5/[facility] Docusate Sodium (Colace) 100 mg PO BID [facility] Doxazosin Mesylate (Cardura) 2 mg PO DAILY [facility] Diltiazem HCl (Cardizem/D5w 100mg/100ml) 100 mg in 100 mls @ 5 mls/hr IV TITR [facility]; Protocol Last Titration: 07/04/19 06:30 Dose: 15 mg/hr, 15 mls/hr Documented by: Ceftriaxone Sodium (Rocephin/Ns 1 Gm/50 Ml) 1 gm in 50 mls @ 100 mls/hr IV Q24H [facility]; Protocol Metronidazole (Flagyl 500 Mg/100 Ml) 500 mg in 100 mls @ 100 mls/hr IV Q8HR [facility]; Protocol Last Admin: 07/04/19 06:32 Dose: 100 mls/hr Documented by: Ondansetron HCl (Zofran) 4 mg IV Q6H PRN PRN Reason: Nausea And Vomiting Sodium Chloride (Sodium Chloride Flush Syringe 10 Ml) 10 ml IV BID [facility] Sodium Chloride (Sodium Chloride Flush Syringe 10 Ml) 10 ml IV PRN PRN PRN Reason: LINE FLUSH Exam - Constitutional Vitals: Temp Pulse Resp BP Pulse Ox 98.2 F 87 27 H 185/98 97 07/04/19 01:12 07/04/19 06:00 07/04/19 06:00 07/04/19 06:00 07/04/19 06:00 Results - Labs CBC & Chem 7: 07/07/19 08:53 07/07/19 08:53 Labs: Laboratory Last Values WBC 16.4 K/mm3 (4.5-11.0) H 07/04/19 01:40 RBC 5.95 M/mm3 (3.65-5.03) H 07/04/19 01:40 Hgb 14.4 gm/dl (10.1-14.3) H 07/04/19 01:40 Hct 43.0 % (30.3-42.9) H 07/04/19 01:40 MCV 72 fl (79-97) L 07/04/19 01:40 MCH 24 pg (28-32) L 07/04/19 01:40 MCHC 33 % (30-34) 07/04/19 01:40 RDW 19.2 % (13.2-15.2) H 07/04/19 01:40 Plt Count 398 K/mm3 (140-440) 07/04/19 01:40 Lymph % (Auto) 6.4 % (13.4-35.0) L 07/04/19 01:40 [place] % (Auto) 5.0 % (0.0-7.3) 07/04/19 01:40 Eos % (Auto) 0.0 % (0.0-4.3) 07/04/19 01:40 Baso % (Auto) 0.9 % (0.0-1.8) 07/04/19 01:40 Lymph # 1.0 K/mm3 (1.2-5.4) L 07/04/19 01:40 [place] # 0.8 K/mm3 (0.0-0.8) 07/04/19 01:40 Eos # 0.0 K/mm3 (0.0-0.4) 07/04/19 01:40 Baso # 0.1 K/mm3 (0.0-0.1) 07/04/19 01:40 Seg Neutrophils % 87.7 % (40.0-70.0) H 07/04/19 01:40 Seg Neutrophils # 14.3 K/mm3 (1.8-7.7) H 07/04/19 01:40 PT 13.2 Sec. (12.2-14.9) 07/04/19 01:40 INR 1.03 (0.87-1.13) 07/04/19 01:40 APTT 24.8 Sec. (24.2-36.6) 07/04/19 01:40 Sodium 139 mmol/L (137-145) 07/04/19 02:04 Potassium 4.2 mmol/L (3.6-5.0) 07/04/19 02:04 Chloride 105.2 mmol/L (98-107) 07/04/19 02:04 Carbon Dioxide 19 mmol/L (22-30) L 07/04/19 02:04 19 mmol/L 07/04/19 02:04 BUN 42 mg/dL (7-17) H 07/04/19 02:04 1.6 mg/dL (0.7-1.2) H 07/04/19 02:04 Estimated GFR 38 ml/min 07/04/19 02:04 26 % 07/04/19 02:04 Glucose 187 mg/dL (65-100) H 07/04/19 02:04 5.8 % (4-6) 07/04/19 01:40 Calcium 9.4 mg/dL (8.4-10.2) 07/04/19 02:04 0.60 mg/dL (0.1-1.2) 07/04/19 02:04 AST 17 units/L (5-40) 07/04/19 02:04 ALT 10 units/L (7-56) 07/04/19 02:04 99 units/L (35-129) 07/04/19 02:04 < 0.010 ng/mL (0.00-0.029) 07/04/19 02:04 10.2 g/dL (6.3-8.2) H 07/04/19 02:04 3.2 g/dL (3.9-5) L 07/04/19 02:04 0.5 % 07/04/19 02:04 26 units/L (13-60) 07/04/19 02:04 TSH 3.250 mlU/mL (0.270-4.200) 07/04/19 02:04 Free T4 1.37 ng/dL (0.76-1.46) 07/04/19 02:04 Red (Yellow) 07/04/19 04:00 Turbid (Clear) 07/04/19 04:00 6.0 (5.0-7.0) 07/04/19 04:00 Ur Specific [place] 1.012 (1.003-1.030) 07/04/19 04:00 100 mg/dl mg/dL (Negative) 07/04/19 04:00 Neg mg/dL (Negative) 07/04/19 04:00 Neg mg/dL (Negative) 07/04/19 04:00 Lg (Negative) 07/04/19 04:00 Neg (Negative) 07/04/19 04:00 Neg (Negative) 07/04/19 04:00 < 2.0 mg/dL (<2.0) 07/04/19 04:00 Ur Leukocyte Esterase Mod (Negative) 07/04/19 04:00 > 182.0 /HPF (0.0-6.0) H 07/04/19 04:00 > 182.0 /HPF (0.0-6.0) 07/04/19 04:00 4+ /HPF (Negative) 07/04/19 04:00 3+ /HPF 07/04/19 04:00 3+ /HPF 07/04/19 04:00 Assessment and Plan Assessment and plan: This is a 79-year-old woman with a history of A. fib, CVA, hyperlipidemia, coronary artery disease, multiple myeloma, seizure, chronic kidney disease, GERD was brought to the emergency room with complaints of nausea vomiting diarrhea, all of which is resolved. Also complaining of abdominal pain in the right lower quadrant. Her physical exam is significant for stool is heme-positive, stool mixed with blood. Agree with Gwen Romero will proctitis, urinary tract infection, DC Lovenox, start IV fluids.
[2019-07-04] MEDS: metroNIDAZOLE/NS 500 MG/100 ML 500 MG/100 ML BAG IV SCH ×3 (06:32→22:27)
[2019-07-04] MEDS ORDERED: SODIUM CHLORIDE 0.45% 1000 ML 1,000 ML IV SCH (07:00)
[2019-07-04] MEDS ORDERED: amLODIPine 10 MG TAB PO SCH (10:00)
[2019-07-04] MEDS ORDERED: D5W/0.9% NACL 1,000 ML IV SCH (10:00)
[2019-07-04] MEDS: ONDANSETRON 4 MG/2 ML INJ IV PRN (10:50)
[2019-07-04] MEDS: DOXAZOSIN 1 MG TAB PO SCH (10:51)
[2019-07-04] MEDS: METOPROLOL TARTRATE 50 MG TAB PO SCH ×2 (10:52→22:28)
[2019-07-04] MEDS: DOCUSATE SODIUM 100 MG CAP PO SCH ×2 (10:52→22:28)
[2019-07-04] MEDS: amLODIPine 10 MG TAB PO SCH (11:17)
--- NOTE | 2019-07-04 11:30 | Consultation ---
History of Present Illness Consult date: 07/04/19 Consult reason: atrial fibrillation History of present illness: This is a frail, 79-year old woman with prior CVA with left sided deficits who was brought in with nausea vomiting and abdominal pain. On presentation, patient was found with rapid atrial fibrillation, thus this cardiac consultation. Patient has a known history of permanent atrial fibrillation, previously recommended warfarin for oral anticoagulation. The patient has been noncompliant with her medications and outpatient INR checks. Her latest cardiac workup was done in 2017 at which time she had a normal persantine thallium test and a normal left ventricular ejection fraction 60-65% by echocardiogram. Patient is admitted to the CCU and is on intravenous Diltiazem. There are no reports of unusual shortness of breath, chest pain or palpitations. Initial labs shows a sub-therapeutic INR at 1.0 and acute renal failure, creatinine at 1.6. Past History Past Medical History: atrial fib (on coumadin), hypertension, renal failure, seizures, stroke (with left sided paralysis), other (debility, multiple myeloma s/p treatment, ureteral stents, GI bleeding) Past Surgical History: cholecystectomy, Other ( D&C, stent x2) Social history: Lives alone (with daughter), lives with family, other (Former smoker) Family history: no significant family history Medications and Allergies Allergies Allergy/AdvReac Type Severity Reaction Status Date / Time No Known Allergies Allergy Verified 04/18/14 13:51 Home Medications Medication Instructions Recorded Confirmed Last Taken Type Doxazosin Mesylate [Cardura] 2 mg PO DAILY #30 tablet 10/31/16 07/04/19 Unknown Rx amLODIPine [Norvasc] 10 mg PO DAILY #30 tablet 10/31/16 07/04/19 Unknown Rx Hydralazine HCl 50 mg PO TID 07/04/19 07/04/19 Unknown History Lisinopril/Hydrochlorothiazide 1 tab PO DAILY 07/04/19 07/04/19 Unknown History [Zestoretic 20-25 mg] Metoprolol [Lopressor TAB] 50 mg PO BID 07/04/19 07/04/19 Unknown History Warfarin [Coumadin] 5 mg PO DAILY 07/04/19 07/04/19 Unknown History Active Meds: Active Medications Acetaminophen (Tylenol) 650 mg PO Q4H PRN PRN Reason: Pain MILD(1-3)/Fever >100.5/BYRD Amlodipine Besylate (Norvasc) 10 mg PO QDAY [facility] Last Admin: 07/04/19 11:17 Dose: 10 mg Documented by: Docusate Sodium (Colace) 100 mg PO BID [facility] Last Admin: 07/04/19 10:52 Dose: 100 mg Documented by: Doxazosin Mesylate (Cardura) 2 mg PO DAILY [facility] Last Admin: 07/04/19 10:51 Dose: 2 mg Documented by: Ceftriaxone Sodium (Rocephin/Ns 1 Gm/50 Ml) 1 gm in 50 mls @ 100 mls/hr IV Q24H [facility]; Protocol Metronidazole (Flagyl 500 Mg/100 Ml) 500 mg in 100 mls @ 100 mls/hr IV Q8HR [facility]; Protocol Last Admin: 07/04/19 06:32 Dose: 100 mls/hr Documented by: Dextrose/Sodium Chloride (D5ns) 1,000 mls @ 75 mls/hr IV DIRECT [facility] Last Admin: 07/04/19 09:52 Dose: 75 mls/hr Documented by: Labetalol HCl (Normodyne) 10 mg IV Q4H PRN PRN Reason: Hypertension Metoprolol Tartrate (Lopressor) 50 mg PO BID [facility] Last Admin: 07/04/19 10:52 Dose: 50 mg Documented by: Ondansetron HCl (Zofran) 4 mg IV Q6H PRN PRN Reason: Nausea And Vomiting Last Admin: 07/04/19 10:50 Dose: 4 mg Documented by: Sodium Chloride (Sodium Chloride Flush Syringe 10 Ml) 10 ml IV BID [facility] Last Admin: 07/04/19 10:53 Dose: 10 ml Documented by: Sodium Chloride (Sodium Chloride Flush Syringe 10 Ml) 10 ml IV PRN PRN PRN Reason: LINE FLUSH Physical Examination Vital Signs Temp Pulse Resp BP Pulse Ox 98.2 F 124 H 24 177/114 98 07/04/19 01:12 07/04/19 01:12 07/04/19 01:12 07/04/19 01:12 07/04/19 01:12 General appearance: no acute distress HEENT: Positive: PERRL Neck: Positive: trachea midline Cardiac: Positive: irregularly irregular Lungs: Positive: Decreased Breath Sounds Neuro: Positive: Weakness, Other (left sided deficits) Results 07/04/19 01:40 07/04/19 02:04 Cardiac Enzymes 07/04/19 Range/Units 02:04 AST 17 (5-40) units/L Coagulation 07/04/19 Range/Units 01:40 PT 13.2 (12.2-14.9) Sec. INR 1.03 (0.87-1.13) APTT 24.8 (24.2-36.6) Sec. CBC 07/04/19 Range/Units 01:40 WBC 16.4 H (4.5-11.0) K/mm3 RBC 5.95 H (3.65-5.03) M/mm3 Hgb 14.4 H (10.1-14.3) gm/dl Hct 43.0 H (30.3-42.9) % Plt Count 398 (140-440) K/mm3 Lymph # 1.0 L (1.2-5.4) K/mm3 Simpson # 0.8 (0.0-0.8) K/mm3 Eos # 0.0 (0.0-0.4) K/mm3 Baso # 0.1 (0.0-0.1) K/mm3 Comprehensive Metabolic Panel 07/04/19 Range/Units 02:04 Sodium 139 (137-145) mmol/L Potassium 4.2 (3.6-5.0) mmol/L Chloride 105.2 (98-107) mmol/L Carbon Dioxide 19 L (22-30) mmol/L BUN 42 H (7-17) mg/dL Creatinine 1.6 H (0.7-1.2) mg/dL Glucose 187 H (65-100) mg/dL Calcium 9.4 (8.4-10.2) mg/dL AST 17 (5-40) units/L ALT 10 (7-56) units/L Alkaline Phosphatase 99 (35-129) units/L Total Protein 10.2 H (6.3-8.2) g/dL Albumin 3.2 L (3.9-5) g/dL Assessment and Plan Abdominal pain with N/V Dehydration Acute renal failure Permanent Afib noncompliant with warfarin. INR of 1.0 on presentation. UTI Prior CVA with left sided residual Hypertension Normal MPI 10/2016. Normal LVEF 60-65% by echo 10/2016.
[2019-07-04] MEDS ORDERED: METOPROLOL TARTRATE 5 MG/5 ML INJ IV PRN (11:37)
--- NOTE | 2019-07-04 12:12 | Consultation ---
History of Present Illness - Reason for Consult Consult date: 07/04/19 Afib with RVR Requesting physician: ELISEO PADILLA - History of Present Illness 79 y/o female presented with nausea vomiting and abdominal pain. Per chart was in afib with rvr and dilt drip ordered. Difficult to say if dilt drip was started but was not on on arrival to ICU this morning. Rate is now controlled. BP is elevated but patient has not had any of her home medications. Past History Past Medical History: atrial fib (on coumadin), hypertension, renal failure, seizures, stroke (with left sided paralysis), other (debility, multiple myeloma s/p treatment, ureteral stents, GI bleeding) Past Surgical History: cholecystectomy, Other ( D&C, stent x2) Social history: Lives alone (with daughter), lives with family, other (Former smoker) Family history: no significant family history Medications and Allergies Allergies Allergy/AdvReac Type Severity Reaction Status Date / Time No Known Allergies Allergy Verified 04/18/14 13:51 Home Medications Medication Instructions Recorded Confirmed Last Taken Type Doxazosin Mesylate [Cardura] 2 mg PO DAILY #30 tablet 10/31/16 07/04/19 Unknown Rx amLODIPine [Norvasc] 10 mg PO DAILY #30 tablet 10/31/16 07/04/19 Unknown Rx Hydralazine HCl 50 mg PO TID 07/04/19 07/04/19 Unknown History Lisinopril/Hydrochlorothiazide 1 tab PO DAILY 07/04/19 07/04/19 Unknown History [Zestoretic 20-25 mg] Metoprolol [Lopressor TAB] 50 mg PO BID 07/04/19 07/04/19 Unknown History Warfarin [Coumadin] 5 mg PO DAILY 07/04/19 07/04/19 Unknown History Active Meds: Active Medications Acetaminophen (Tylenol) 650 mg PO Q4H PRN PRN Reason: Pain MILD(1-3)/Fever >100.5/BYRD Amlodipine Besylate (Norvasc) 10 mg PO QDAY [facility] Last Admin: 07/04/19 11:17 Dose: 10 mg Documented by: Docusate Sodium (Colace) 100 mg PO BID [facility] Last Admin: 07/04/19 10:52 Dose: 100 mg Documented by: Doxazosin Mesylate (Cardura) 2 mg PO DAILY [facility] Last Admin: 07/04/19 10:51 Dose: 2 mg Documented by: Ceftriaxone Sodium (Rocephin/Ns 1 Gm/50 Ml) 1 gm in 50 mls @ 100 mls/hr IV Q24H [facility]; Protocol Metronidazole (Flagyl 500 Mg/100 Ml) 500 mg in 100 mls @ 100 mls/hr IV Q8HR [facility]; Protocol Last Admin: 07/04/19 06:32 Dose: 100 mls/hr Documented by: Dextrose/Sodium Chloride (D5ns) 1,000 mls @ 75 mls/hr IV DIRECT [facility] Last Admin: 07/04/19 09:52 Dose: 75 mls/hr Documented by: Labetalol HCl (Normodyne) 10 mg IV Q4H PRN PRN Reason: Hypertension Metoprolol Tartrate (Lopressor) 50 mg PO BID [facility] Last Admin: 07/04/19 10:52 Dose: 50 mg Documented by: Metoprolol Tartrate (Lopressor) 2.5 mg IV Q6HR PRN PRN Reason: HR >120 Ondansetron HCl (Zofran) 4 mg IV Q6H PRN PRN Reason: Nausea And Vomiting Last Admin: 07/04/19 10:50 Dose: 4 mg Documented by: Sodium Chloride (Sodium Chloride Flush Syringe 10 Ml) 10 ml IV BID [facility] Last Admin: 07/04/19 10:53 Dose: 10 ml Documented by: Sodium Chloride (Sodium Chloride Flush Syringe 10 Ml) 10 ml IV PRN PRN PRN Reason: LINE FLUSH Review of Systems All systems: negative Exam - Constitutional Vitals: Temp Pulse Resp BP Pulse Ox 97.6 F 72 29 H 188/84 96 07/04/19 11:59 07/04/19 11:17 07/04/19 08:00 07/04/19 11:17 07/04/19 08:00 General appearance: Present: no acute distress, well-nourished - EENT ENT: hearing intact, clear oral mucosa - Neck Neck: Present: supple, normal ROM - Respiratory Respiratory effort: normal Respiratory: bilateral: CTA - Cardiovascular Rhythm: irregularly irregular - Abdominal General gastrointestinal: Present: soft Female genitourinary: Present: deferred - Rectal Rectal Exam: deferred Results - Labs CBC & Chem 7: 07/04/19 01:40 07/04/19 02:04 Labs: Abnormal lab results 07/04/19 07/04/19 07/04/19 Range/Units 01:40 02:04 04:00 WBC 16.4 H (4.5-11.0) K/mm3 RBC 5.95 H (3.65-5.03) M/mm3 Hgb 14.4 H (10.1-14.3) gm/dl Hct 43.0 H (30.3-42.9) % MCV 72 L (79-97) fl MCH 24 L (28-32) pg RDW 19.2 H (13.2-15.2) % Lymph % (Auto) 6.4 L (13.4-35.0) % Lymph # 1.0 L (1.2-5.4) K/mm3 Seg Neutrophils % 87.7 H (40.0-70.0) % Seg Neutrophils # 14.3 H (1.8-7.7) K/mm3 Carbon Dioxide 19 L (22-30) mmol/L BUN 42 H (7-17) mg/dL Creatinine 1.6 H (0.7-1.2) mg/dL Glucose 187 H (65-100) mg/dL Total Protein 10.2 H (6.3-8.2) g/dL Albumin 3.2 L (3.9-5) g/dL Urine WBC (Auto) > 182.0 H (0.0-6.0) /HPF - Imaging and Cardiology Chest x-ray: image reviewed (cardiomegal but clear lung sharpe) CT Scan - head: report reviewed Assessment and Plan 79 y/o female, presumptive admitted to the ICU for afib with rvr 1. Stable for transfer from unit 2. IMS and cards to address BP and rate control. Follows with nephrology ([facility]) as well 3. Will sign off once out of unit.
--- NOTE | 2019-07-04 13:25 | Gastroenterology Consultation ---
<CLARY HANNA - Last Filed: 07/04/19 13:32> History of Present Illness - Reason for Consult Consult date: 07/04/19 proctitis Requesting physician: LEANDRA GANNON - History of Present Illness Patient is a 79 y/o female with PMH of CVA with left-sided paralysis, chronic debility, multiple myeloma s/p tx, bilateral ureteral stents, CKD, Afib (on coumadin), seizure, and HTN who presented to ED for evaluation of AMS and c/o abd pain, N/V, and diarrhea. Upon admission, head CT was negative but she was found to have an UTI (currently receiving abx) and rapid atrial fibrillation with HR now controlled after receiving cardizem (cardiology following). GI has been consulted for proctitis seen on CT. This morning patient was sitting up in bed w/o acute distress. Noted to be A&O x 3. Reports feeling better with lower abd pain now improved. Has some mild continued nausea but now further vomiting. Tolerating small amounts of PO. States she had BMs x 2 yesterday with initial stool being solid and second liquid but is at baseline with mild chronic constipation. Per nursing, no diarrhea or significant BM today, but had a smear of brown non-bloody stool this am with wiping. Last colonoscopy was several years go per patient, but has no hx of IBD. No recent travel or known contacts. Denies fever, wt loss, hematemesis, or melena. Past History Past Medical History: atrial fib (on coumadin), hypertension, renal failure, seizures, stroke (with left sided paralysis), other (debility, multiple myeloma s/p treatment, ureteral stents, GI bleeding) Past Surgical History: cholecystectomy, Other ( D&C, stent x2) Social history: Lives alone (with daughter), lives with family, other (Former smoker) Family history: no significant family history Medications and Allergies Allergies Allergy/AdvReac Type Severity Reaction Status Date / Time No Known Allergies Allergy Verified 04/18/14 13:51 Home Medications Medication Instructions Recorded Confirmed Last Taken Type Doxazosin Mesylate [Cardura] 2 mg PO DAILY #30 tablet 10/31/16 07/04/19 Unknown Rx amLODIPine [Norvasc] 10 mg PO DAILY #30 tablet 10/31/16 07/04/19 Unknown Rx Hydralazine HCl 50 mg PO TID 07/04/19 07/04/19 Unknown History Lisinopril/Hydrochlorothiazide 1 tab PO DAILY 07/04/19 07/04/19 Unknown History [Zestoretic 20-25 mg] Metoprolol [Lopressor TAB] 50 mg PO BID 07/04/19 07/04/19 Unknown History Warfarin [Coumadin] 5 mg PO DAILY 07/04/19 07/04/19 Unknown History Active Meds: Active Medications Acetaminophen (Tylenol) 650 mg PO Q4H PRN PRN Reason: Pain MILD(1-3)/Fever >100.5/BYRD Amlodipine Besylate (Norvasc) 10 mg PO QDAY [facility] Last Admin: 07/04/19 11:17 Dose: 10 mg Documented by: Docusate Sodium (Colace) 100 mg PO BID [facility] Last Admin: 07/04/19 10:52 Dose: 100 mg Documented by: Doxazosin Mesylate (Cardura) 2 mg PO DAILY [facility] Last Admin: 07/04/19 10:51 Dose: 2 mg Documented by: Ceftriaxone Sodium (Rocephin/Ns 1 Gm/50 Ml) 1 gm in 50 mls @ 100 mls/hr IV Q24H [facility]; Protocol Metronidazole (Flagyl 500 Mg/100 Ml) 500 mg in 100 mls @ 100 mls/hr IV Q8HR [facility]; Protocol Last Admin: 07/04/19 13:10 Dose: 100 mls/hr Documented by: Dextrose/Sodium Chloride (D5ns) 1,000 mls @ 75 mls/hr IV DIRECT [facility] Last Infusion: 07/04/19 11:00 Dose: 0 mls/hr Documented by: Labetalol HCl (Normodyne) 10 mg IV Q4H PRN PRN Reason: Hypertension Last Admin: 07/04/19 13:11 Dose: 10 mg Documented by: Metoprolol Tartrate (Lopressor) 50 mg PO BID [facility] Last Admin: 07/04/19 10:52 Dose: 50 mg Documented by: Metoprolol Tartrate (Lopressor) 2.5 mg IV Q6HR PRN PRN Reason: HR >120 Ondansetron HCl (Zofran) 4 mg IV Q6H PRN PRN Reason: Nausea And Vomiting Last Admin: 07/04/19 10:50 Dose: 4 mg Documented by: Sodium Chloride (Sodium Chloride Flush Syringe 10 Ml) 10 ml IV BID [facility] Last Admin: 07/04/19 10:53 Dose: 10 ml Documented by: Sodium Chloride (Sodium Chloride Flush Syringe 10 Ml) 10 ml IV PRN PRN PRN Reason: LINE FLUSH medications reviewed/updated as required Review of Systems - Review of Systems All systems: negative Gastrointestinal: abdominal pain (lower), nausea, vomiting, diarrhea Exam - Constitutional Vital Signs: Temp Pulse Resp BP Pulse Ox 97.6 F 74 29 H 175/89 96 07/04/19 11:59 07/04/19 13:11 07/04/19 08:00 07/04/19 13:11 07/04/19 08:00 General appearance: no acute distress, obese - Respiratory Respiratory effort: normal - Cardiovascular Rhythm: other (irregular) - Gastrointestinal General gastrointestinal: Present: soft, non-tender, non-distended, normal bowel sounds - Neurologic Neurological: alert and oriented x3 - Labs CBC & Chem 7: 07/04/19 01:40 07/04/19 02:04 Lab Results: Laboratory Results - last 24 hr 07/04/19 07/04/19 07/04/19 01:40 01:40 01:40 WBC 16.4 H RBC 5.95 H Hgb 14.4 H Hct 43.0 H MCV 72 L MCH 24 L MCHC 33 RDW 19.2 H Plt Count 398 Lymph % (Auto) 6.4 L [place] % (Auto) 5.0 Eos % (Auto) 0.0 Baso % (Auto) 0.9 Lymph # 1.0 L [place] # 0.8 Eos # 0.0 Baso # 0.1 Seg Neutrophils % 87.7 H Seg Neutrophils # 14.3 H PT 13.2 INR 1.03 APTT 24.8 Sodium Potassium Chloride Carbon Dioxide Anion Gap BUN Creatinine Estimated GFR BUN/Creatinine Ratio Glucose Hemoglobin A1c 5.8 Calcium Total Bilirubin AST ALT Alkaline Phosphatase Troponin T Total Protein Albumin Albumin/Globulin Ratio Lipase TSH Free T4 Urine Color Urine Turbidity Urine pH Ur Specific [place] Urine Protein Urine Glucose (UA) Urine Ketones Urine Blood Urine Nitrite Urine Bilirubin Urine Urobilinogen Ur Leukocyte Esterase Urine WBC (Auto) Urine RBC (Auto) Urine Bacteria (Auto) Urine WBC Clumps Urine Mucus 07/04/19 07/04/19 07/04/19 02:04 02:04 04:00 WBC RBC Hgb Hct MCV MCH MCHC RDW Plt Count Lymph % (Auto) [place] % (Auto) Eos % (Auto) Baso % (Auto) Lymph # [place] # Eos # Baso # Seg Neutrophils % Seg Neutrophils # PT INR APTT Sodium 139 Potassium 4.2 Chloride 105.2 Carbon Dioxide 19 L Anion Gap 19 BUN 42 H Creatinine 1.6 H Estimated GFR 38 BUN/Creatinine Ratio 26 Glucose 187 H Hemoglobin A1c Calcium 9.4 Total Bilirubin 0.60 AST 17 ALT 10 Alkaline Phosphatase 99 Troponin T < 0.010 Total Protein 10.2 H Albumin 3.2 L Albumin/Globulin Ratio 0.5 Lipase 26 TSH 3.250 Free T4 1.37 Urine Color Red Urine Turbidity Turbid Urine pH 6.0 Ur Specific [place] 1.012 Urine Protein 100 mg/dl Urine Glucose (UA) Neg Urine Ketones Neg Urine Blood Lg Urine Nitrite Neg Urine Bilirubin Neg Urine Urobilinogen < 2.0 Ur Leukocyte Esterase Mod Urine WBC (Auto) > 182.0 H Urine RBC (Auto) > 182.0 Urine Bacteria (Auto) 4+ Urine WBC Clumps 3+ Urine Mucus 3+ Assessment and Plan 1.proctitis seen onCT 2.lower abd pain 3.N/V 4.diarrhea -afebrile -WBC 16.4 -H/H 14.4/43.0 -LFTs WNL; s/p CCY -abd CT showed mild fat stranding adjacent to the rectum suggesting proctitis w/o obstruction, pneumatosis, or free air -clinically, patient reports feeling better today with symptoms now improving. Per nursing, patient with a smear of brown non-bloody stool this am with wiping but no diarrhea. Tolerating small amounts of PO. -stool studies if diarrhea develops -no plan for scope at this time -continue antibiotics and supportive care -further recommendations to follow 5.UTI 6.Afib (on coumadin) 7.chronic dbility 8.H/o CVA -afebrile - <BLANCA MCCLELLAND - Last Filed: 07/04/19 23:06> Medications and Allergies Active Meds: Active Medications Acetaminophen (Tylenol) 650 mg PO Q4H PRN PRN Reason: Pain MILD(1-3)/Fever >100.5/BYRD Amlodipine Besylate (Norvasc) 10 mg PO QDAY [facility] Last Admin: 07/04/19 11:17 Dose: 10 mg Documented by: Docusate Sodium (Colace) 100 mg PO BID [facility] Last Admin: 07/04/19 22:28 Dose: 100 mg Documented by: Doxazosin Mesylate (Cardura) 2 mg PO DAILY [facility] Last Admin: 07/04/19 10:51 Dose: 2 mg Documented by: Ceftriaxone Sodium (Rocephin/Ns 1 Gm/50 Ml) 1 gm in 50 mls @ 100 mls/hr IV Q24H [facility]; Protocol Metronidazole (Flagyl 500 Mg/100 Ml) 500 mg in 100 mls @ 100 mls/hr IV Q8HR [facility]; Protocol Last Admin: 07/04/19 22:27 Dose: 100 mls/hr Documented by: Labetalol HCl (Normodyne) 10 mg IV Q4H PRN PRN Reason: Hypertension Last Admin: 07/04/19 13:11 Dose: 10 mg Documented by: Metoprolol Tartrate (Lopressor) 50 mg PO BID [facility] Last Admin: 07/04/19 22:28 Dose: 50 mg Documented by: Metoprolol Tartrate (Lopressor) 2.5 mg IV Q6HR PRN PRN Reason: HR >120 Ondansetron HCl (Zofran) 4 mg IV Q6H PRN PRN Reason: Nausea And Vomiting Last Admin: 07/04/19 10:50 Dose: 4 mg Documented by: Sodium Chloride (Sodium Chloride Flush Syringe 10 Ml) 10 ml IV BID [facility] Last Admin: 07/04/19 22:29 Dose: 10 ml Documented by: Sodium Chloride (Sodium Chloride Flush Syringe 10 Ml) 10 ml IV PRN PRN PRN Reason: LINE FLUSH Exam - Constitutional Vital Signs: Temp Pulse Resp BP Pulse Ox 98.0 F 84 18 160/74 98 07/04/19 20:25 07/04/19 20:25 07/04/19 20:25 07/04/19 22:28 07/04/19 20:25 - Labs CBC & Chem 7: 07/04/19 01:40 07/04/19 02:04 Lab Results: Laboratory Results - last 24 hr 07/04/19 07/04/19 07/04/19 01:40 01:40 01:40 WBC 16.4 H RBC 5.95 H Hgb 14.4 H Hct 43.0 H MCV 72 L MCH 24 L MCHC 33 RDW 19.2 H Plt Count 398 Lymph % (Auto) 6.4 L [place] % (Auto) 5.0 Eos % (Auto) 0.0 Baso % (Auto) 0.9 Lymph # 1.0 L [place] # 0.8 Eos # 0.0 Baso # 0.1 Seg Neutrophils % 87.7 H Seg Neutrophils # 14.3 H PT 13.2 INR 1.03 APTT 24.8 Sodium Potassium Chloride Carbon Dioxide Anion Gap BUN Creatinine Estimated GFR BUN/Creatinine Ratio Glucose Hemoglobin A1c 5.8 Calcium Total Bilirubin AST ALT Alkaline Phosphatase Troponin T Total Protein Albumin Albumin/Globulin Ratio Lipase TSH Free T4 Urine Color Urine Turbidity Urine pH Ur Specific [place] Urine Protein Urine Glucose (UA) Urine Ketones Urine Blood Urine Nitrite Urine Bilirubin Urine Urobilinogen Ur Leukocyte Esterase Urine WBC (Auto) Urine RBC (Auto) Urine Bacteria (Auto) Urine WBC Clumps Urine Mucus 07/04/19 07/04/19 07/04/19 02:04 02:04 04:00 WBC RBC Hgb Hct MCV MCH MCHC RDW Plt Count Lymph % (Auto) [place] % (Auto) Eos % (Auto) Baso % (Auto) Lymph # [place] # Eos # Baso # Seg Neutrophils % Seg Neutrophils # PT INR APTT Sodium 139 Potassium 4.2 Chloride 105.2 Carbon Dioxide 19 L Anion Gap 19 BUN 42 H Creatinine 1.6 H Estimated GFR 38 BUN/Creatinine Ratio 26 Glucose 187 H Hemoglobin A1c Calcium 9.4 Total Bilirubin 0.60 AST 17 ALT 10 Alkaline Phosphatase 99 Troponin T < 0.010 Total Protein 10.2 H Albumin 3.2 L Albumin/Globulin Ratio 0.5 Lipase 26 TSH 3.250 Free T4 1.37 Urine Color Red Urine Turbidity Turbid Urine pH 6.0 Ur Specific [place] 1.012 Urine Protein 100 mg/dl Urine Glucose (UA) Neg Urine Ketones Neg Urine Blood Lg Urine Nitrite Neg Urine Bilirubin Neg Urine Urobilinogen < 2.0 Ur Leukocyte Esterase Mod Urine WBC (Auto) > 182.0 H Urine RBC (Auto) > 182.0 Urine Bacteria (Auto) 4+ Urine WBC Clumps 3+ Urine Mucus 3+ Assessment and Plan Patient seen and examined. I have reviewed the advanced practitioner's evaluation, assessment, and plan, and agree with them. I note the following additions: she reports symptoms improving therefore colonoscopy in the acute setting with improving symptoms not recommended - Patient Problems (1) Proctitis Current Visit: Yes Status: Acute
--- NOTE | 2019-07-04 13:47 | Event Note ---
Date: 07/04/19 79-year-old -[place] female with history of CVA with left-sided paralysis, chronic debility, multiple myeloma status post treatment, bilateral ureteral stents, CKD, atrial fibrillation on Coumadin, seizure, hypertension who presents to [facility] ED with complaints of n/v/d, abdominal pain and altered mental status. Patient seen and examined, cont current Mx and plan as dictated in h and p.
[2019-07-04] MEDS ORDERED: NON-FORMULARY EACH (Hydralazine Hcl [Hydralazine Hcl] 50 MG) PO SCH (14:00)
--- NOTE | 2019-07-04 15:59 | Cat Scan Report ---
CT ABDOMEN AND PELVIS WITHOUT CONTRAST INDICATION: Abdominal pain with nausea, vomiting and diarrhea. COMPARISON: CT abdomen and pelvis with contrast from earlier today. TECHNIQUE: Axial, coronal and sagittal CT imaging of the abdomen and pelvis was performed without co ntrast. Lack of intravenous contrast limits evaluation of the vascular and solid organs. All CT sca ns at this location are performed using CT dose reduction for ALARA by means of automated exposure co ntrol. FINDINGS: LOWER CHEST: The previously seen pericardial effusion is stable. There are similar generalized athero sclerosis. No additional significant abnormality. LIVER: Stable probable cysts are noted without an additional significant abnormality. BILIARY: Prior cholecystectomy. No biliary ductal dilatation. PANCREAS: No significant abnormality. SPLEEN: No significant abnormality. ADRENALS: No significant abnormality. KIDNEYS AND URETERS: Ureteral stents are in stable position with similar nonobstructive bilateral garland al stones. Right lower renal pole cysts are stable. No new acute abnormality. GI TRACT: The previously described findings of possible proctitis are unchanged no additional signifi cant abnormality is seen along the colon, small bowel or stomach. The appendix is unremarkable. PERITONEUM: A trace amount of free fluid is seen dependently along the pelvis near the rectum. No ulises e air. No fluid collection. LYMPH NODES: No significant adenopathy. VASCULATURE: The aorta is normal in caliber with severe generalized atherosclerosis. URINARY BLADDER: No significant abnormality. REPRODUCTIVE ORGANS: The uterus contains multiple probable calcified fibroids. No additional signific ant abnormality. ADDITIONAL FINDINGS: None. SKELETAL SYSTEM: There is osteopenia with degenerative changes of the spine and pelvis. No acute abno rmality is seen. IMPRESSION: 1. Stable findings suggestive of proctitis as described earlier today without a new acute abnormality of the abdomen or pelvis. 2. Additional stable findings as above. Signer Name: Cornelius Pandya MD Signed: 07/04/2019 3:55 PM Workstation Name: [id number]
[2019-07-04] MEDS ORDERED: WARFARIN 5 MG TAB PO SCH (17:00)
--- NOTE | 2019-07-04 17:05 | Consultation ---
History of Present Illness - Reason for Consult chronic renal failure - History of Present Illness 79 y/o frail, elderly AAF, who is being seen by my colleague Dr Kate at out office, with h/o CKD III in the setting of HTN, CAD, b/l nephrolithiais complicated by obstructive uropathy requiring ureteral stent placement, with recent cytoscopy/ureteroscopy, b/l stent change, and laser stent stone basket extraction earlier this year, presented to the ED secondary to nausea, abdominal pain, and bouts of loose BM. Nephrology consulted secondary to chronic kidney disease state and concern for possible PHILIPPE on CKD. Baseline Scr is 1.3-1.5 with eGFR of 30-40. Patient is currently on flagyl here. Renal function noted, and essentially is near her baseline. Past History Past Medical History: atrial fib (on coumadin), hypertension, renal failure, seizures, stroke (with left sided paralysis), other (debility, multiple myeloma s/p treatment, ureteral stents, GI bleeding) Past Surgical History: cholecystectomy, Other ( D&C, stent x2) Social history: Lives alone (with daughter), lives with family, other (Former smoker) Family history: no significant family history Medications and Allergies Allergies Allergy/AdvReac Type Severity Reaction Status Date / Time No Known Allergies Allergy Verified 04/18/14 13:51 Home Medications Medication Instructions Recorded Confirmed Last Taken Type Doxazosin Mesylate [Cardura] 2 mg PO DAILY #30 tablet 10/31/16 07/04/19 Unknown Rx amLODIPine [Norvasc] 10 mg PO DAILY #30 tablet 10/31/16 07/04/19 Unknown Rx Hydralazine HCl 50 mg PO TID 07/04/19 07/04/19 Unknown History Lisinopril/Hydrochlorothiazide 1 tab PO DAILY 07/04/19 07/04/19 Unknown History [Zestoretic 20-25 mg] Metoprolol [Lopressor TAB] 50 mg PO BID 07/04/19 07/04/19 Unknown History Warfarin [Coumadin] 5 mg PO DAILY 07/04/19 07/04/19 Unknown History Active Meds: Active Medications Acetaminophen (Tylenol) 650 mg PO Q4H PRN PRN Reason: Pain MILD(1-3)/Fever >100.5/BYRD Amlodipine Besylate (Norvasc) 10 mg PO QDAY [facility] Last Admin: 07/04/19 11:17 Dose: 10 mg Documented by: Docusate Sodium (Colace) 100 mg PO BID [facility] Last Admin: 07/04/19 10:52 Dose: 100 mg Documented by: Doxazosin Mesylate (Cardura) 2 mg PO DAILY [facility] Last Admin: 07/04/19 10:51 Dose: 2 mg Documented by: Ceftriaxone Sodium (Rocephin/Ns 1 Gm/50 Ml) 1 gm in 50 mls @ 100 mls/hr IV Q24H [facility]; Protocol Metronidazole (Flagyl 500 Mg/100 Ml) 500 mg in 100 mls @ 100 mls/hr IV Q8HR [facility]; Protocol Last Admin: 07/04/19 13:10 Dose: 100 mls/hr Documented by: Dextrose/Sodium Chloride (D5ns) 1,000 mls @ 75 mls/hr IV DIRECT [facility] Last Infusion: 07/04/19 11:00 Dose: 0 mls/hr Documented by: Labetalol HCl (Normodyne) 10 mg IV Q4H PRN PRN Reason: Hypertension Last Admin: 07/04/19 13:11 Dose: 10 mg Documented by: Metoprolol Tartrate (Lopressor) 50 mg PO BID [facility] Last Admin: 07/04/19 10:52 Dose: 50 mg Documented by: Metoprolol Tartrate (Lopressor) 2.5 mg IV Q6HR PRN PRN Reason: HR >120 Ondansetron HCl (Zofran) 4 mg IV Q6H PRN PRN Reason: Nausea And Vomiting Last Admin: 07/04/19 10:50 Dose: 4 mg Documented by: Sodium Chloride (Sodium Chloride Flush Syringe 10 Ml) 10 ml IV BID [facility] Last Admin: 07/04/19 10:53 Dose: 10 ml Documented by: Sodium Chloride (Sodium Chloride Flush Syringe 10 Ml) 10 ml IV PRN PRN PRN Reason: LINE FLUSH Review of Systems All systems: negative Constitutional: fatigue, weakness, poor appetite Gastrointestinal: abdominal pain, nausea, vomiting Exam - Vital Signs Vital signs: Vital Signs Temp Pulse Resp BP Pulse Ox 98.2 F 124 H 24 177/114 98 07/04/19 01:12 07/04/19 01:12 07/04/19 01:12 07/04/19 01:12 07/04/19 01:12 - General Appearance General appearance: appears stated age, chronically ill, fatigue, frail EENT: ATNC, PERRL Neck: Present: neck supple, trachea midline Respiratory: Clear to Ascultation Heart: regular, S1S2 Gastrointestinal: Present: normal, normoactive bowel sounds Integumentary: no rash, warm and dry Neurologic: no focal deficit Musculoskeletal: Present: other (-edema) Psychiatric: mood/affect appropriate, cooperative Results - Lab Results 07/04/19 01:40 07/04/19 02:04 Most recent lab results Calcium 9.4 mg/dL (8.4-10.2) 07/04/19 02:04 Assessment and Plan - Patient Problems (1) Acute kidney injury superimposed on CKD Current Visit: Yes Status: Acute Plan to address problem: Seeing that her blood pressures have remained elevated and that her renal function is essentially at baseline, will hold off on continuos IVF. Need to encourage adequate oral intake. Avoid nephrotoxins, maintain MAP > 65mmHg. Will monitor renal function daily. Please ensure that antibiotics are dosed appropriately for renal function. (2) Altered mental status Current Visit: Yes Status: Acute Plan to address problem: Seems to be improved, as she has been started on antibiotics. Will continue current management and follow up. No acute findings were seen on the CT head. (3) Hypertensive chronic kidney disease with stage 1 through stage 4 chronic kidney disease, or unspecified chronic kidney disease Current Visit: Yes Status: Chronic Plan to address problem: Monitor blood pressures with current antihypertensive regimen. (4) Atrial fibrillation with rapid ventricular response Current Visit: Yes Status: Acute Plan to address problem: s/p cardizem, with rate controlled at this time. Further recommendations per cardiology. (5) Proctitis Current Visit: Yes Status: Acute Plan to address problem: Continues on IV flagyl. Recommendations per GI. (6) UTI (lower urinary tract infection) Current Visit: No Status: Acute Plan to address problem: Antibiotics per primary attending, please ensure that the antibiotics are does appropriately for her renal function.
[2019-07-05] MEDS: metroNIDAZOLE/NS 500 MG/100 ML 500 MG/100 ML BAG IV SCH ×3 (05:26→22:33)
[2019-07-05] MEDS: cefTRIAXone/NS 1 GM/50 ML 1 GM/50 ML BAG IV SCH (05:32)
[2019-07-05 06:16] LABS: Hematocrit 42.7 % (30.3-42.9); Hemoglobin 14.1 gm/dl (10.1-14.3); Mean Corpuscular HGB Conc 33 % (30-34); Mean Corpuscular Volume 72 fl (79-97); Platelet Count 283 K/mm3 (140-440); Red Blood Count 5.96 M/mm3 (3.65-5.03); Red Cell Distribution Width 19.2 % (13.2-15.2)
[2019-07-05 06:26] LABS: Calcium 8.7 mg/dL (8.4-10.2)
--- NOTE | 2019-07-05 08:56 | Progress Note ---
Assessment and Plan 79 y/o female, presumptive admitted to the ICU for afib with rvr 1. BP and rate control per primary. 2. Will sign off, call if questions. Subjective Date of service: 07/05/19 Interval history: No acute events. STable transfer out of unit. HR better but still not cont rolled. Remains irregular Objective - Constitutional Vitals: Vital Signs - 12hr 07/04/19 07/04/19 07/05/19 22:28 23:56 03:33 Temperature 98.0 F 98.0 F Pulse Rate 98 H 78 Pulse Rate [ Apical] Pulse Rate [ From Monitor] Pulse Rate [ Left Radial] Pulse Rate [ Right Radial] Respiratory 18 18 Rate Blood Pressure 160/74 160/85 172/92 O2 Sat by Pulse 97 100 Oximetry 07/05/19 07/05/19 08:08 08:23 Temperature 98.1 F Pulse Rate 99 H Pulse Rate [ 112 H Apical] Pulse Rate [ 120 H From Monitor] Pulse Rate [ 110 H Left Radial] Pulse Rate [ 110 H Right Radial] Respiratory 18 18 Rate Blood Pressure 145/91 O2 Sat by Pulse 95 Oximetry - Labs CBC & Chem 7: 07/05/19 05:29 07/05/19 05:29 Labs: Abnormal lab results 07/05/19 07/05/19 Range/Units 05:29 05:29 WBC 20.2 H (4.5-11.0) K/mm3 RBC 5.96 H (3.65-5.03) M/mm3 MCV 72 L (79-97) fl MCH 24 L (28-32) pg RDW 19.2 H (13.2-15.2) % Chloride 107.1 H (98-107) mmol/L Carbon Dioxide 20 L (22-30) mmol/L BUN 45 H (7-17) mg/dL Creatinine 1.6 H (0.7-1.2) mg/dL Glucose 144 H (65-100) mg/dL Medications & Allergies - Medications Allergies/Adverse Reactions: Allergies No Known Allergies Allergy (Verified 04/18/14 13:51) Home Medications: Home Medications Medication Instructions Recorded Confirmed Last Taken Type Doxazosin Mesylate [Cardura] 2 mg PO DAILY #30 tablet 10/31/16 07/04/19 Unknown Rx amLODIPine [Norvasc] 10 mg PO DAILY #30 tablet 10/31/16 07/04/19 Unknown Rx Hydralazine HCl 50 mg PO TID 07/04/19 07/04/19 Unknown History Lisinopril/Hydrochlorothiazide 1 tab PO DAILY 07/04/19 07/04/19 Unknown History [Zestoretic 20-25 mg] Metoprolol [Lopressor TAB] 50 mg PO BID 07/04/19 07/04/19 Unknown History Warfarin [Coumadin] 5 mg PO DAILY 07/04/19 07/04/19 Unknown History Active Medications: Generic Name Dose Route Start Last Admin Trade Name Freq PRN Reason Stop Dose Admin Acetaminophen 650 mg 07/04/19 05:16 Tylenol PO Q4H PRN Pain MILD(1-3)/Fever >100.5/BYRD Amlodipine Besylate 10 mg 07/04/19 12:00 07/04/19 11:17 Norvasc PO 10 mg QDAY [facility] Administration Docusate Sodium 100 mg 07/04/19 10:00 07/04/19 22:28 Colace PO 100 mg BID [facility] Administration Doxazosin Mesylate 2 mg 07/04/19 10:00 07/04/19 10:51 Cardura PO 2 mg DAILY [facility] Administration Ceftriaxone Sodium 1 gm in 50 mls @ 100 mls/hr 07/05/19 06:00 07/05/19 05:32 Rocephin/Ns 1 Gm/50 Ml IV 100 mls/hr Q24H [facility] Administration Protocol Metronidazole 500 mg in 100 mls @ 100 mls/hr 07/04/19 06:00 07/05/19 05:26 Flagyl 500 Mg/100 Ml IV 100 mls/hr Q8HR [facility] Administration Protocol Labetalol HCl 10 mg 07/04/19 11:30 07/04/19 13:11 Normodyne IV 10 mg Q4H PRN Administration Hypertension Metoprolol Tartrate 50 mg 07/04/19 10:00 07/04/19 22:28 Lopressor PO 50 mg BID [facility] Administration Metoprolol Tartrate 2.5 mg 07/04/19 11:37 Lopressor IV Q6HR PRN HR >120 Ondansetron HCl 4 mg 07/04/19 05:16 07/04/19 10:50 Zofran IV 4 mg Q6H PRN Administration Nausea And Vomiting Sodium Chloride 10 ml 07/04/19 10:00 07/04/19 22:29 Sodium Chloride Flush Syringe 10 Ml IV 10 ml BID [facility] Administration Sodium Chloride 10 ml 07/04/19 05:16 Sodium Chloride Flush Syringe 10 Ml IV PRN PRN LINE FLUSH
[2019-07-05] MEDS: amLODIPine 10 MG TAB PO SCH (09:10)
[2019-07-05] MEDS: METOPROLOL TARTRATE 50 MG TAB PO SCH ×3 (09:11→22:45)
[2019-07-05] MEDS: DOXAZOSIN 1 MG TAB PO SCH (09:11)
[2019-07-05] MEDS: DOCUSATE SODIUM 100 MG CAP PO SCH ×2 (09:11→22:34)
--- NOTE | 2019-07-05 09:32 | Gastroenterology Progress Note ---
<CLARY HANNA - Last Filed: 07/05/19 09:34> Assessment and Plan 1.proctitis seen on CT 2.lower abd pain 3.N/V 4.diarrhea -abd CT showed mild fat stranding adjacent to the rectum suggesting proctitis w/o obstruction, pneumatosis, or free air -etiology unclear- infectious vs inflammatory vs other -clinically, patient's symptoms are now resolved with no c/o abd pain, N/V, or diarrhea. No signs of GI bleeding. Tolerating liquids. -advance diet as tolerated -stool studies if diarrhea develops -no plan for scope at this time -continue antibiotics and supportive care -patient to f/u in clinic upon discharge -no further GI recommendations at this time; Will sign off, please call if needed. 5.UTI 6.Afib (on coumadin) 7.chronic dbility 8.H/o CVA Subjective Date of service: 07/05/19 Principal diagnosis: proctitis Interval history: Patient w/o acute distress. Reports feeling better today with no c/o abd pain, N/V, or GI bleeding. Diarrhea resolved. Tolerating liquids. Objective - Constitutional Vitals: Temp Pulse Resp BP Pulse Ox 98.1 F 99 H 18 145/91 95 07/05/19 08:08 07/05/19 09:11 07/05/19 08:23 07/05/19 09:11 07/05/19 08:08 General appearance: no acute distress - EENT Eyes: PERRL, EOM intact ENT: hearing intact - Respiratory Respiratory effort: normal - Cardiovascular Rhythm: other (irregular) - Gastrointestinal General gastrointestinal: Present: soft, non-tender, non-distended, normal bowel sounds - Labs CBC & Chem 7: 07/05/19 05:29 07/05/19 05:29 Labs: Laboratory Results - last 24 hr 07/05/19 07/05/19 05:29 05:29 WBC 20.2 H RBC 5.96 H Hgb 14.1 Hct 42.7 MCV 72 L MCH 24 L MCHC 33 RDW 19.2 H Plt Count 283 Sodium 140 Potassium 4.1 Chloride 107.1 H Carbon Dioxide 20 L Anion Gap 17 BUN 45 H Creatinine 1.6 H Estimated GFR 38 BUN/Creatinine Ratio 28 Glucose 144 H Calcium 8.7 <BLANCA MCCLELLAND - Last Filed: 07/05/19 14:17> Assessment and Plan Patient seen and examined. I have reviewed the advanced practitioner's evaluation, assessment, and plan, and agree with them. I note the following additions: pt improving, will sign off - Patient Problems (1) Proctitis Current Visit: Yes Status: Acute Objective - Constitutional Vitals: Temp Pulse Resp BP Pulse Ox 98.1 F 100 H 18 145/91 95 07/05/19 08:08 07/05/19 13:15 07/05/19 08:23 07/05/19 13:15 07/05/19 08:08 - Labs CBC & Chem 7: 07/05/19 05:29 07/05/19 05:29 Labs: Laboratory Results - last 24 hr 07/05/19 07/05/19 05:29 05:29 WBC 20.2 H RBC 5.96 H Hgb 14.1 Hct 42.7 MCV 72 L MCH 24 L MCHC 33 RDW 19.2 H Plt Count 283 Add Manual Diff Complete Total Counted 100 Seg Neuts % (Manual) 93.0 H Band Neutrophils % 0 Lymphocytes % (Manual) 5.0 L Reactive Lymphs % (Man) 0 Monocytes % (Manual) 2.0 Eosinophils % (Manual) 0 Basophils % (Manual) 0 Metamyelocytes % 0 Myelocytes % 0 Promyelocytes % 0 Blast Cells % 0 Nucleated RBC % Not Reportable Seg Neutrophils # Man 18.8 H Band Neutrophils # 0.0 Lymphocytes # (Manual) 1.0 L Abs React Lymphs (Man) 0.0 Monocytes # (Manual) 0.4 Eosinophils # (Manual) 0.0 Basophils # (Manual) 0.0 Metamyelocytes # 0.0 Myelocytes # 0.0 Promyelocytes # 0.0 Blast Cells # 0.0 WBC Morphology Not Reportable Hypersegmented Neuts Not Reportable Hyposegmented Neuts Not Reportable Hypogranular Neuts Not Reportable Smudge Cells Not Reportable Toxic Granulation Not Reportable Toxic Vacuolation Not Reportable Dohle Bodies Not Reportable Pelger-Huet Anomaly Not Reportable Colleen Rods Not Reportable Platelet Estimate Consistent w auto Clumped Platelets Not Reportable Plt Clumps, EDTA Not Reportable Large Platelets Not Reportable Giant Platelets Not Reportable Platelet Satelliting Not Reportable Plt Morphology Comment Not Reportable RBC Morphology Not Reportable Dimorphic RBCs Not Reportable Polychromasia Not Reportable Hypochromasia Few Poikilocytosis Few Anisocytosis Few Microcytosis Not Reportable Macrocytosis Not Reportable Spherocytes Not Reportable Pappenheimer Bodies Not Reportable Sickle Cells Not Reportable Target Cells 2+ Tear Drop Cells Not Reportable Ovalocytes Not Reportable Helmet Cells Not Reportable [place] Bodies Not Reportable [place] Rings Not Reportable [place]ley Cells Not Reportable Bite Cells Not Reportable Crenated Cell Not Reportable Elliptocytes Not Reportable Acanthocytes (Spur) Not Reportable Rouleaux Not Reportable Hemoglobin C Crystals Not Reportable Schistocytes Not Reportable Malaria parasites Not Reportable Brett Bodies Not Reportable Hem Pathologist Commnt No Sodium 140 Potassium 4.1 Chloride 107.1 H Carbon Dioxide 20 L Anion Gap 17 BUN 45 H Creatinine 1.6 H Estimated GFR 38 BUN/Creatinine Ratio 28 Glucose 144 H Calcium 8.7
[2019-07-05 09:48] LABS: Basophils % (Manual) 0 % (0.0-1.8); Eosinophils % (Manual) 0 % (0.0-4.3); Total Cells Counted 100
[2019-07-05 09:49] LABS: Anisocytosis Few; Poikilocytosis Few
[2019-07-05 09:50] LABS: Hypochromasia Few; Platelet Estimate Consistent w Auto; Target Cells 2+
--- NOTE | 2019-07-05 09:54 | Progress Note ---
Assessment and Plan - Patient Problems (1) Acute kidney injury superimposed on CKD Current Visit: Yes Status: Acute Plan to address problem: Will add on gentle IVF with careful monitoring of BP. Avoid nephrotoxins, maintain MAP > 65mmHg. Will monitor renal function daily. Please ensure that antibiotics are dosed appropriately for renal function. (2) Altered mental status Current Visit: Yes Status: Acute Plan to address problem: Seems to be improved, as she has been started on antibiotics. Will continue current management and follow up. No acute findings were seen on the CT head. (3) Hypertensive chronic kidney disease with stage 1 through stage 4 chronic kidney disease, or unspecified chronic kidney disease Current Visit: Yes Status: Chronic Plan to address problem: Monitor blood pressures with current antihypertensive regimen. (4) Atrial fibrillation with rapid ventricular response Current Visit: Yes Status: Acute Plan to address problem: s/p cardizem, with rate controlled at this time. Further recommendations per cardiology. (5) Proctitis Current Visit: Yes Status: Acute Plan to address problem: Continues on IV flagyl. Recommendations per GI. (6) UTI (lower urinary tract infection) Current Visit: No Status: Inactive Plan to address problem: Antibiotics per primary attending, please ensure that the antibiotics are does appropriately for her renal function. Subjective Date of service: 07/05/19 Principal diagnosis: proctitis Interval history: Episode of gross hematuria. Poor appetite and hydration. Will add on gentle IVF to help increase urine output. Objective - Vital Signs Vital signs: Vital Signs - 12hr 07/04/19 07/04/19 07/05/19 22:28 23:56 03:33 Temperature 98.0 F 98.0 F Pulse Rate 98 H 78 Pulse Rate [ Apical] Pulse Rate [ From Monitor] Pulse Rate [ Left Radial] Pulse Rate [ Right Radial] Respiratory 18 18 Rate Blood Pressure 160/74 160/85 172/92 O2 Sat by Pulse 97 100 Oximetry 07/05/19 07/05/19 07/05/19 08:08 08:23 09:10 Temperature 98.1 F Pulse Rate 99 H 99 H Pulse Rate [ 112 H Apical] Pulse Rate [ 120 H From Monitor] Pulse Rate [ 110 H Left Radial] Pulse Rate [ 110 H Right Radial] Respiratory 18 18 Rate Blood Pressure 145/91 145/91 O2 Sat by Pulse 95 Oximetry 07/05/19 09:11 Temperature Pulse Rate 99 H Pulse Rate [ Apical] Pulse Rate [ From Monitor] Pulse Rate [ Left Radial] Pulse Rate [ Right Radial] Respiratory Rate Blood Pressure 145/91 O2 Sat by Pulse Oximetry - General Appearance General appearance: appears stated age, chronically ill, frail EENT: ATNC, PERRL Neck: no JVD, no thyromegaly Respiratory: Present: Clear to Ascultation Cardiology: regular, S1S2 Gastrointestinal: normal, normoactive bowel sounds Integumentary: no rash, warm and dry Neurologic: no focal deficit, no asterixis Psychiatric: mood/affect appropriate, cooperative - Lab 07/05/19 05:29 07/05/19 05:29 Most recent lab results Calcium 8.7 mg/dL (8.4-10.2) 07/05/19 05:29 - Allied health notes Allied health notes reviewed: nursing Medications & Allergies - Medications Allergies/Adverse Reactions: Allergies No Known Allergies Allergy (Verified 04/18/14 13:51) Home Medications: Home Medications Medication Instructions Recorded Confirmed Last Taken Type Doxazosin Mesylate [Cardura] 2 mg PO DAILY #30 tablet 10/31/16 07/04/19 Unknown Rx amLODIPine [Norvasc] 10 mg PO DAILY #30 tablet 10/31/16 07/04/19 Unknown Rx Hydralazine HCl 50 mg PO TID 07/04/19 07/04/19 Unknown History Lisinopril/Hydrochlorothiazide 1 tab PO DAILY 07/04/19 07/04/19 Unknown History [Zestoretic 20-25 mg] Metoprolol [Lopressor TAB] 50 mg PO BID 07/04/19 07/04/19 Unknown History Warfarin [Coumadin] 5 mg PO DAILY 07/04/19 07/04/19 Unknown History Active Medications: Generic Name Dose Route Start Last Admin Trade Name Freq PRN Reason Stop Dose Admin Acetaminophen 650 mg 07/04/19 05:16 Tylenol PO Q4H PRN Pain MILD(1-3)/Fever >100.5/BYRD Amlodipine Besylate 10 mg 07/04/19 12:00 07/05/19 09:10 Norvasc PO 10 mg QDAY NITO Administration Docusate Sodium 100 mg 07/04/19 10:00 07/05/19 09:11 Colace PO 100 mg BID NITO Administration Doxazosin Mesylate 2 mg 07/04/19 10:00 07/05/19 09:11 Cardura PO 2 mg DAILY NITO Administration Ceftriaxone Sodium 1 gm in 50 mls @ 100 mls/hr 07/05/19 06:00 07/05/19 05:32 Rocephin/Ns 1 Gm/50 Ml IV 100 mls/hr Q24H NITO Administration Protocol Metronidazole 500 mg in 100 mls @ 100 mls/hr 07/04/19 06:00 07/05/19 05:26 Flagyl 500 Mg/100 Ml IV 100 mls/hr Q8HR NITO Administration Protocol Sodium Chloride 1,000 mls @ 75 mls/hr 07/05/19 10:00 Nacl 0.9% 1000 Ml IV DIRECT NITO Labetalol HCl 10 mg 07/04/19 11:30 07/04/19 13:11 Normodyne IV 10 mg Q4H PRN Administration Hypertension Metoprolol Tartrate 50 mg 07/04/19 10:00 07/05/19 09:11 Lopressor PO 50 mg BID NITO Administration Metoprolol Tartrate 2.5 mg 07/04/19 11:37 Lopressor IV Q6HR PRN HR >120 Ondansetron HCl 4 mg 07/04/19 05:16 07/04/19 10:50 Zofran IV 4 mg Q6H PRN Administration Nausea And Vomiting Sodium Chloride 10 ml 07/04/19 10:00 07/05/19 09:26 Sodium Chloride Flush Syringe 10 Ml IV 10 ml BID NITO Administration Sodium Chloride 10 ml 07/04/19 05:16 Sodium Chloride Flush Syringe 10 Ml IV PRN PRN LINE FLUSH
[2019-07-05] MEDS ORDERED: cefTRIAXone/NS 1 GM/50 ML 1 GM/50 ML BAG IV SCH (10:00)
--- NOTE | 2019-07-05 10:29 | Progress Note ---
Assessment and Plan Abdominal pain with N/V Dehydration Acute renal failure Permanent Afib noncompliant with warfarin. INR of 1.0 on presentation. UTI Prior CVA with left sided residual Hypertension Normal MPI 10/2016. Normal LVEF 60-65% by echo 10/2016. Subjective Date of service: 07/05/19 Principal diagnosis: proctitis Interval history: Patient complains of abdominal pain. No cardiac complaints. Rapid Afib seen on telemetry. Objective Vital Signs Temp Pulse Pulse Pulse Pulse Pulse Resp 07/05/19 09:11 99 H 07/05/19 09:10 99 H 07/05/19 08:23 112 H 120 H 110 H 110 H 18 07/05/19 08:08 98.1 F 99 H 18 07/05/19 03:33 98.0 F 78 18 07/04/19 23:56 98.0 F 98 H 18 07/04/19 22:28 07/04/19 20:25 98.0 F 84 18 07/04/19 14:16 80 07/04/19 13:51 76 29 H 07/04/19 13:41 70 32 H 07/04/19 13:31 70 29 H 07/04/19 13:21 83 30 H 07/04/19 13:11 82 30 H 07/04/19 13:01 75 29 H 07/04/19 12:50 73 32 H 07/04/19 12:41 72 30 H 07/04/19 12:30 78 31 H 07/04/19 12:21 81 16 07/04/19 12:16 73 07/04/19 12:11 80 34 H 07/04/19 12:01 73 34 H 07/04/19 11:59 97.6 F 07/04/19 11:51 75 15 07/04/19 11:41 71 32 H 07/04/19 11:30 75 32 H 07/04/19 11:21 66 33 H 07/04/19 11:17 72 07/04/19 11:11 76 29 H 07/04/19 11:00 73 17 07/04/19 10:54 84 10 L 07/04/19 10:52 79 07/04/19 10:51 81 07/04/19 10:31 83 30 H BP Pulse Ox 07/05/19 09:11 145/91 09/27/19 09:10 145/91 07/05/19 08:23 07/05/19 08:08 145/91 95 07/05/19 03:33 172/92 100 07/04/19 23:56 160/85 97 07/04/19 22:28 160/74 07/04/19 20:25 160/74 98 07/04/19 14:16 07/04/19 13:51 174/82 97 07/04/19 13:41 174/82 97 07/04/19 13:31 174/82 95 07/04/19 13:21 174/82 96 07/04/19 13:11 175/89 96 07/04/19 13:01 181/78 96 07/04/19 12:50 187/81 98 07/04/19 12:41 174/82 97 07/04/19 12:30 174/82 98 07/04/19 12:21 180/79 98 07/04/19 12:16 07/04/19 12:11 187/81 99 07/04/19 12:01 171/79 98 07/04/19 11:59 07/04/19 11:51 187/81 99 07/04/19 11:41 177/90 97 07/04/19 11:30 177/90 98 07/04/19 11:21 188/84 98 07/04/19 11:17 188/84 07/04/19 11:11 179/90 98 07/04/19 11:00 185/80 98 07/04/19 10:54 97 07/04/19 10:52 177/81 07/04/19 10:51 177/81 07/04/19 10:31 179/90 98 - Physical Examination General: No Apparent Distress HEENT: Positive: PERRL Neck: Positive: trachea midline Cardiac: Positive: irregularly irregular Lungs: Positive: Decreased Breath Sounds Neuro: Positive: Weakness, Other (left sided deficits) - Labs and Meds CBC 07/05/19 Range/Units 05:29 WBC 20.2 H (4.5-11.0) K/mm3 RBC 5.96 H (3.65-5.03) M/mm3 Hgb 14.1 (10.1-14.3) gm/dl Hct 42.7 (30.3-42.9) % Plt Count 283 (140-440) K/mm3 Comprehensive Metabolic Panel 07/05/19 Range/Units 05:29 Sodium 140 (137-145) mmol/L Potassium 4.1 (3.6-5.0) mmol/L Chloride 107.1 H (98-107) mmol/L Carbon Dioxide 20 L (22-30) mmol/L BUN 45 H (7-17) mg/dL Creatinine 1.6 H (0.7-1.2) mg/dL Glucose 144 H (65-100) mg/dL Calcium 8.7 (8.4-10.2) mg/dL - Allied health notes Allied health notes reviewed: nursing
--- NOTE | 2019-07-05 13:30 | Progress Note ---
Assessment and Plan - Patient Problems (1) Gross hematuria Current Visit: Yes Status: Acute Plan to address problem: A shunt with gross hematuria secondary to UTI. Currently not on Coumadin secondary to this had been noncompliant on Coumadin prior as well. We'll reinitiate if resolves. (2) Atrial fibrillation with rapid ventricular response Current Visit: Yes Status: Acute Plan to address problem: Patient rate controlled at this particular time. Still has some risk A. fib but does not outweigh the gross hematuria that I'm seeing. (3) Mental status, decreased Current Visit: Yes Status: Acute Plan to address problem: Baseline mental status secondary to vascular dementia. (4) Proctitis Current Visit: Yes Status: Acute Plan to address problem: Abdominal pain caused by proctitis patient treated with Flagyl. H&H remained stable at this time. (5) UTI (urinary tract infection) Current Visit: Yes Status: Acute Plan to address problem: GI patient on Flagyl Rocephin should cover both gram-positive and some gram- negative coverage for possible UTI. (6) CKD (chronic kidney disease) stage 2, GFR 60-89 ml/min Current Visit: No Status: Chronic Plan to address problem: Patient chronic kidney disease at baseline. (7) HTN (hypertension) Current Visit: No Status: Chronic (8) Multiple myeloma and immunoproliferative neoplasms Current Visit: No Status: Chronic Plan to address problem: History by family recent treatment for her multiple myeloma. We'll follow with oncology as outpatient. History Interval history: 79-year-old female with a history of atrial fibrillation, CVA, hypertension, nephrolithiasis with ureteral stents presents with nausea vomiting abdominal cramping. Initial workup in the ER abdominal CT found patient to have proctitis. Patient hospital course complicated today by gross hematuria. Was found to have urinary tract infection as well. Patient is stable slow to respond at baseline at this time. Hospitalist Physical - Constitutional Vitals: Temp Pulse Resp BP Pulse Ox 98.1 F 100 H 18 145/91 95 07/05/19 08:08 07/05/19 13:15 07/05/19 08:23 07/05/19 13:15 07/05/19 08:08 General appearance: Present: no acute distress, well-nourished - EENT Eyes: Present: PERRL, EOM intact ENT: hearing intact, clear oral mucosa, dentition normal - Neck Neck: Present: supple, normal ROM - Respiratory Respiratory: bilateral: CTA - Cardiovascular Rhythm: regularly irregular - Extremities Extremities: no ischemia, pulses intact, pulses symmetrical Extremity abnormal: pulses diminished Peripheral Pulses: within normal limits - Abdominal General gastrointestinal: soft, non-tender, non-distended, normal bowel sounds - Integumentary Integumentary: Present: clear, warm, dry - Neurologic Neurologic: focal deficits (left hemiparesis), other (poor memory consistent with multi-infarct dementia.) Results - Labs CBC & Chem 7: 07/05/19 05:29 07/05/19 05:29 Labs: Laboratory Last Values WBC 20.2 K/mm3 (4.5-11.0) H 07/05/19 05:29 RBC 5.96 M/mm3 (3.65-5.03) H 07/05/19 05:29 Hgb 14.1 gm/dl (10.1-14.3) 07/05/19 05:29 Hct 42.7 % (30.3-42.9) 07/05/19 05:29 MCV 72 fl (79-97) L 07/05/19 05:29 MCH 24 pg (28-32) L 07/05/19 05:29 MCHC 33 % (30-34) 07/05/19 05:29 RDW 19.2 % (13.2-15.2) H 07/05/19 05:29 Plt Count 283 K/mm3 (140-440) 07/05/19 05:29 Lymph % (Auto) 6.4 % (13.4-35.0) L 07/04/19 01:40 [place] % (Auto) 5.0 % (0.0-7.3) 07/04/19 01:40 Eos % (Auto) 0.0 % (0.0-4.3) 07/04/19 01:40 Baso % (Auto) 0.9 % (0.0-1.8) 07/04/19 01:40 Lymph # 1.0 K/mm3 (1.2-5.4) L 07/04/19 01:40 [place] # 0.8 K/mm3 (0.0-0.8) 07/04/19 01:40 Eos # 0.0 K/mm3 (0.0-0.4) 07/04/19 01:40 Baso # 0.1 K/mm3 (0.0-0.1) 07/04/19 01:40 Add Manual Diff Complete 07/05/19 05:29 Total Counted 100 07/05/19 05:29 Seg Neutrophils % 87.7 % (40.0-70.0) H 07/04/19 01:40 Seg Neuts % (Manual) 93.0 % (40.0-70.0) H 07/05/19 05:29 0 % 07/05/19 05:29 5.0 % (13.4-35.0) L 07/05/19 05:29 Reactive Lymphs % (Man) 0 % 07/05/19 05:29 2.0 % (0.0-7.3) 07/05/19 05:29 0 % (0.0-4.3) 07/05/19 05:29 0 % (0.0-1.8) 07/05/19 05:29 0 % 07/05/19 05:29 0 % 07/05/19 05:29 0 % 07/05/19 05:29 0 % 07/05/19 05:29 Nucleated RBC % Not Reportable 07/05/19 05:29 Seg Neutrophils # 14.3 K/mm3 (1.8-7.7) H 07/04/19 01:40 Seg Neutrophils # Man 18.8 K/mm3 (1.8-7.7) H 07/05/19 05:29 Band Neutrophils # 0.0 K/mm3 07/05/19 05:29 1.0 K/mm3 (1.2-5.4) L 07/05/19 05:29 Abs React Lymphs (Man) 0.0 K/mm3 07/05/19 05:29 0.4 K/mm3 (0.0-0.8) 07/05/19 05:29 0.0 K/mm3 (0.0-0.4) 07/05/19 05:29 0.0 K/mm3 (0.0-0.1) 07/05/19 05:29 0.0 K/mm3 07/05/19 05:29 0.0 K/mm3 07/05/19 05:29 0.0 K/mm3 07/05/19 05:29 Blast Cells # 0.0 K/mm3 07/05/19 05:29 WBC Morphology Not Reportable 07/05/19 05:29 Hypersegmented Neuts Not Reportable 07/05/19 05:29 Hyposegmented Neuts Not Reportable 07/05/19 05:29 Hypogranular Neuts Not Reportable 07/05/19 05:29 Not Reportable 07/05/19 05:29 Not Reportable 07/05/19 05:29 Not Reportable 07/05/19 05:29 Not Reportable 07/05/19 05:29 Not Reportable 07/05/19 05:29 Not Reportable 07/05/19 05:29 Consistent w auto 07/05/19 05:29 Not Reportable 07/05/19 05:29 Plt Clumps, EDTA Not Reportable 07/05/19 05:29 Not Reportable 07/05/19 05:29 Not Reportable 07/05/19 05:29 Not Reportable 07/05/19 05:29 Plt Morphology Comment Not Reportable 07/05/19 05:29 RBC Morphology Not Reportable 07/05/19 05:29 Dimorphic RBCs Not Reportable 07/05/19 05:29 Not Reportable 07/05/19 05:29 Few 07/05/19 05:29 Few 07/05/19 05:29 Few 07/05/19 05:29 Not Reportable 07/05/19 05:29 Not Reportable 07/05/19 05:29 Not Reportable 07/05/19 05:29 Not Reportable 07/05/19 05:29 Not Reportable 07/05/19 05:29 2+ 07/05/19 05:29 Not Reportable 07/05/19 05:29 Not Reportable 07/05/19 05:29 Not Reportable 07/05/19 05:29 Not Reportable 07/05/19 05:29 Not Reportable 07/05/19 05:29 Not Reportable 07/05/19 05:29 Not Reportable 07/05/19 05:29 Not Reportable 07/05/19 05:29 Not Reportable 07/05/19 05:29 Acanthocytes (Spur) Not Reportable 07/05/19 05:29 Rouleaux Not Reportable 07/05/19 05:29 Not Reportable 07/05/19 05:29 Not Reportable 07/05/19 05:29 Not Reportable 07/05/19 05:29 Not Reportable 07/05/19 05:29 Hem Pathologist Commnt No 07/05/19 05:29 PT 13.2 Sec. (12.2-14.9) 07/04/19 01:40 INR 1.03 (0.87-1.13) 07/04/19 01:40 APTT 24.8 Sec. (24.2-36.6) 07/04/19 01:40 Sodium 140 mmol/L (137-145) 07/05/19 05:29 Potassium 4.1 mmol/L (3.6-5.0) 07/05/19 05:29 Chloride 107.1 mmol/L (98-107) H 07/05/19 05:29 Carbon Dioxide 20 mmol/L (22-30) L 07/05/19 05:29 17 mmol/L 07/05/19 05:29 BUN 45 mg/dL (7-17) H 07/05/19 05:29 1.6 mg/dL (0.7-1.2) H 07/05/19 05:29 Estimated GFR 38 ml/min 07/05/19 05:29 28 % 07/05/19 05:29 Glucose 144 mg/dL (65-100) H 07/05/19 05:29 5.8 % (4-6) 07/04/19 01:40 Calcium 8.7 mg/dL (8.4-10.2) 07/05/19 05:29 0.60 mg/dL (0.1-1.2) 07/04/19 02:04 AST 17 units/L (5-40) 07/04/19 02:04 ALT 10 units/L (7-56) 07/04/19 02:04 99 units/L (35-129) 07/04/19 02:04 < 0.010 ng/mL (0.00-0.029) 07/04/19 02:04 10.2 g/dL (6.3-8.2) H 07/04/19 02:04 3.2 g/dL (3.9-5) L 07/04/19 02:04 0.5 % 07/04/19 02:04 26 units/L (13-60) 07/04/19 02:04 TSH 3.250 mlU/mL (0.270-4.200) 07/04/19 02:04 Free T4 1.37 ng/dL (0.76-1.46) 07/04/19 02:04 Red (Yellow) 07/04/19 04:00 Turbid (Clear) 07/04/19 04:00 6.0 (5.0-7.0) 07/04/19 04:00 Ur Specific [place] 1.012 (1.003-1.030) 07/04/19 04:00 100 mg/dl mg/dL (Negative) 07/04/19 04:00 Neg mg/dL (Negative) 07/04/19 04:00 Neg mg/dL (Negative) 07/04/19 04:00 Lg (Negative) 07/04/19 04:00 Neg (Negative) 07/04/19 04:00 Neg (Negative) 07/04/19 04:00 < 2.0 mg/dL (<2.0) 07/04/19 04:00 Ur Leukocyte Esterase Mod (Negative) 07/04/19 04:00 > 182.0 /HPF (0.0-6.0) H 07/04/19 04:00 > 182.0 /HPF (0.0-6.0) 07/04/19 04:00 4+ /HPF (Negative) 07/04/19 04:00 3+ /HPF 07/04/19 04:00 3+ /HPF 07/04/19 04:00 - Imaging and Cardiology EKG: report reviewed Chest x-ray: report reviewed, image reviewed CT scan - abdomen: report reviewed, image reviewed CT Scan - head: report reviewed, image reviewed Active Medications - Current Medications Current Medications: Generic Name Dose Route Start Last Admin Trade Name Freq PRN Reason Stop Dose Admin Acetaminophen 650 mg 07/04/19 05:16 Tylenol PO Q4H PRN Pain MILD(1-3)/Fever >100.5/BYRD Amlodipine Besylate 10 mg 07/04/19 12:00 07/05/19 09:10 Norvasc PO 10 mg QDAY NITO Administration Docusate Sodium 100 mg 07/04/19 10:00 07/05/19 09:11 Colace PO 100 mg BID NITO Administration Doxazosin Mesylate 2 mg 07/04/19 10:00 07/05/19 09:11 Cardura PO 2 mg DAILY NITO Administration Ceftriaxone Sodium 1 gm in 50 mls @ 100 mls/hr 07/05/19 06:00 07/05/19 05:32 Rocephin/Ns 1 Gm/50 Ml IV 100 mls/hr Q24H NITO Administration Protocol Metronidazole 500 mg in 100 mls @ 100 mls/hr 07/04/19 06:00 07/05/19 13:16 Flagyl 500 Mg/100 Ml IV 100 mls/hr Q8HR NITO Administration Protocol Sodium Chloride 1,000 mls @ 75 mls/hr 07/05/19 10:00 Nacl 0.9% 1000 Ml IV DIRECT NITO Labetalol HCl 10 mg 07/04/19 11:30 07/04/19 13:11 Normodyne IV 10 mg Q4H PRN Administration Hypertension Metoprolol Tartrate 2.5 mg 07/04/19 11:37 Lopressor IV Q6HR PRN HR >120 Metoprolol Tartrate 75 mg 07/05/19 12:00 07/05/19 13:15 Lopressor PO 75 mg Q8H NITO Administration Ondansetron HCl 4 mg 07/04/19 05:16 07/04/19 10:50 Zofran IV 4 mg Q6H PRN Administration Nausea And Vomiting Sodium Chloride 10 ml 07/04/19 10:00 07/05/19 09:26 Sodium Chloride Flush Syringe 10 Ml IV 10 ml BID NITO Administration Sodium Chloride 10 ml 07/04/19 05:16 Sodium Chloride Flush Syringe 10 Ml IV PRN PRN LINE FLUSH
[2019-07-05] MEDS: SODIUM CHLORIDE 0.9% 1000 ML 1,000 ML IV SCH (18:14)
[2019-07-06] MEDS: cefTRIAXone/NS 1 GM/50 ML 1 GM/50 ML BAG IV SCH (05:23)
[2019-07-06] MEDS: metroNIDAZOLE/NS 500 MG/100 ML 500 MG/100 ML BAG IV SCH ×3 (05:23→22:27)
[2019-07-06] MEDS: METOPROLOL TARTRATE 50 MG TAB PO SCH ×3 (05:26→22:27)
[2019-07-06 08:15] LABS: Calcium 8.3 mg/dL (8.4-10.2)
[2019-07-06 08:24] LABS: Basophils % (Auto) 0.1 % (0.0-1.8); Hematocrit 37.6 % (30.3-42.9); Hemoglobin 12.3 gm/dl (10.1-14.3); Lymphocytes # (Auto) 1.4 K/mm3 (1.2-5.4); Lymphocytes % (Auto) 6.9 % (13.4-35.0); Mean Corpuscular HGB Conc 33 % (30-34); Mean Corpuscular Volume 73 fl (79-97); Monocytes # (Auto) 1.3 K/mm3 (0.0-0.8); Monocytes % (Auto) 6.4 % (0.0-7.3); Platelet Count 233 K/mm3 (140-440); Red Blood Count 5.14 M/mm3 (3.65-5.03); Red Cell Distribution Width 18.9 % (13.2-15.2)
[2019-07-06] MEDS: amLODIPine 10 MG TAB PO SCH (09:52)
[2019-07-06] MEDS: DOXAZOSIN 1 MG TAB PO SCH (09:52)
[2019-07-06] MEDS: DOCUSATE SODIUM 100 MG CAP PO SCH ×2 (09:53→22:27)
--- NOTE | 2019-07-06 10:24 | Progress Note ---
Assessment and Plan - Patient Problems (1) Acute kidney injury superimposed on CKD Current Visit: Yes Status: Acute Plan to address problem: cont gentle IVF with careful monitoring of BP. Avoid nephrotoxins, maintain MAP > 65mmHg. Will monitor renal function daily. Please ensure that antibiotics are dosed appropriately for renal function. (2) Altered mental status Current Visit: Yes Status: Acute Plan to address problem: improving on ABX treatment. CT head showed no acute findings (3) Hypertensive chronic kidney disease with stage 1 through stage 4 chronic kidney disease, or unspecified chronic kidney disease Current Visit: Yes Status: Chronic Plan to address problem: Monitor blood pressures with current antihypertensive regimen. (4) Atrial fibrillation with rapid ventricular response Current Visit: Yes Status: Acute Plan to address problem: rate control per cardiology. (5) Proctitis Current Visit: Yes Status: Acute Plan to address problem: Continues on IV flagyl. Recommendations per GI. (6) UTI (urinary tract infection) Current Visit: Yes Status: Acute Plan to address problem: Antibiotics per primary attending, please ensure that the antibiotics are does appropriately for her renal function. Subjective Date of service: 07/06/19 Principal diagnosis: proctitis Interval history: Pt awake, alert, weak, denies CP, SOB, palpitations, fever, chills . Objective - Vital Signs Vital signs: Vital Signs - 12hr 07/05/19 07/05/19 07/06/19 22:45 23:38 04:15 Temperature 98.0 F 98.0 F Pulse Rate 91 H 72 Respiratory 18 18 Rate Blood Pressure 125/77 117/61 127/70 O2 Sat by Pulse 95 100 Oximetry 07/06/19 07/06/19 05:26 07:49 Temperature 98.0 F Pulse Rate Respiratory 18 Rate Blood Pressure 127/70 115/67 O2 Sat by Pulse Oximetry - General Appearance General appearance: well-developed, appears stated age EENT: ATNC, PERRL, mucous membranes moist Neck: no JVD Respiratory: Present: Clear to Ascultation Cardiology: regular, S1S2 Gastrointestinal: normoactive bowel sounds Integumentary: no rash, other (1+ b/l ankle edema ) Neurologic: no focal deficit, alert and oriented x3, strength 5/5, CN 3-12 intact Psychiatric: mood/affect appropriate, cooperative - Lab 07/06/19 07:23 07/06/19 07:21 Most recent lab results Calcium 8.3 mg/dL (8.4-10.2) L 07/06/19 07:21 Medications & Allergies - Medications Allergies/Adverse Reactions: Allergies No Known Allergies Allergy (Verified 04/18/14 13:51) Home Medications: Home Medications Medication Instructions Recorded Confirmed Last Taken Type Doxazosin Mesylate [Cardura] 2 mg PO DAILY #30 tablet 10/31/16 07/04/19 Unknown Rx amLODIPine [Norvasc] 10 mg PO DAILY #30 tablet 10/31/16 07/04/19 Unknown Rx Hydralazine HCl 50 mg PO TID 07/04/19 07/04/19 Unknown History Lisinopril/Hydrochlorothiazide 1 tab PO DAILY 07/04/19 07/04/19 Unknown History [Zestoretic 20-25 mg] Metoprolol [Lopressor TAB] 50 mg PO BID 07/04/19 07/04/19 Unknown History Warfarin [Coumadin] 5 mg PO DAILY 07/04/19 07/04/19 Unknown History Active Medications: Generic Name Dose Route Start Last Admin Trade Name Vetoq PRN Reason Stop Dose Admin Acetaminophen 650 mg 07/04/19 05:16 Tylenol PO Q4H PRN Pain MILD(1-3)/Fever >100.5/BYRD Amlodipine Besylate 10 mg 07/04/19 12:00 07/06/19 09:52 Norvasc PO 10 mg QDAY NITO Administration Docusate Sodium 100 mg 07/04/19 10:00 07/06/19 09:53 Colace PO 100 mg BID NITO Administration Doxazosin Mesylate 2 mg 07/04/19 10:00 07/06/19 09:52 Cardura PO 2 mg DAILY NITO Administration Ceftriaxone Sodium 1 gm in 50 mls @ 100 mls/hr 07/05/19 06:00 07/06/19 05:23 Rocephin/Ns 1 Gm/50 Ml IV 100 mls/hr Q24H NITO Administration Protocol Metronidazole 500 mg in 100 mls @ 100 mls/hr 07/04/19 06:00 07/06/19 05:23 Flagyl 500 Mg/100 Ml IV 100 mls/hr Q8HR NITO Administration Protocol Sodium Chloride 1,000 mls @ 75 mls/hr 07/05/19 10:00 07/05/19 18:14 Nacl 0.9% 1000 Ml IV 75 mls/hr DIRECT NITO Administration Labetalol HCl 10 mg 07/04/19 11:30 07/04/19 13:11 Normodyne IV 10 mg Q4H PRN Administration Hypertension Metoprolol Tartrate 2.5 mg 07/04/19 11:37 Lopressor IV Q6HR PRN HR >120 Metoprolol Tartrate 75 mg 07/05/19 12:00 07/06/19 05:26 Lopressor PO 75 mg Q8H NITO Administration Ondansetron HCl 4 mg 07/04/19 05:16 07/04/19 10:50 Zofran IV 4 mg Q6H PRN Administration Nausea And Vomiting Sodium Chloride 10 ml 07/04/19 10:00 07/06/19 09:57 Sodium Chloride Flush Syringe 10 Ml IV 10 ml BID NITO Administration Sodium Chloride 10 ml 07/04/19 05:16 Sodium Chloride Flush Syringe 10 Ml IV PRN PRN LINE FLUSH
--- NOTE | 2019-07-06 11:20 | Progress Note ---
Assessment and Plan - Patient Problems (1) Gross hematuria Current Visit: Yes Status: Acute Plan to address problem: Not sure of hematuria has resolved at this point. Patient has not had an additional urine or hematuria since last night. Observe daily. (2) Atrial fibrillation with rapid ventricular response Current Visit: Yes Status: Acute Plan to address problem: Patient rate is controlled. Remains in A. fib. Continue to hold Coumadin secondary to hematuria. Risk of still there however if his do not outweigh risk at this point. (3) Mental status, decreased Current Visit: Yes Status: Acute Plan to address problem: Patient has had improved mental status most likely secondary to infection proctitis and volume depletion. (4) Proctitis Current Visit: Yes Status: Acute Plan to address problem: Continue Flagyl. They are renal doses. Still has white count fever curve is coming down. No abdominal pain him to tolerate clears to full seems like improving. (5) UTI (urinary tract infection) Current Visit: Yes Status: Acute Plan to address problem: GI patient on Flagyl Rocephin should cover both gram-positive and some gram- negative coverage for possible UTI. (6) CKD (chronic kidney disease) stage 2, GFR 60-89 ml/min Current Visit: No Status: Chronic Plan to address problem: Patient chronic kidney disease at baseline. (7) HTN (hypertension) Current Visit: No Status: Chronic Plan to address problem: Stable 115/67. (8) Multiple myeloma and immunoproliferative neoplasms Current Visit: No Status: Chronic Plan to address problem: History by family recent treatment for her multiple myeloma. We'll follow with oncology as outpatient. Could also be the problem with acute renal insufficiency. History Interval history: Patient appears to be more alert today. Has food inform her drinking soup. Sore responded states she feels okay. Hospitalist Physical - Constitutional Vitals: Temp Pulse Resp BP Pulse Ox 98.0 F 72 18 115/67 100 07/06/19 07:49 07/06/19 04:15 07/06/19 07:49 07/06/19 07:49 07/06/19 04:15 General appearance: Present: no acute distress, well-nourished - EENT Eyes: Present: PERRL, EOM intact ENT: hearing intact, clear oral mucosa, dentition normal - Neck Neck: Present: supple, normal ROM - Respiratory Respiratory effort: normal - Cardiovascular Rhythm: regular - Extremities Extremities: no ischemia, pulses intact, pulses symmetrical, No edema - Abdominal General gastrointestinal: soft, non-tender, non-distended, normal bowel sounds, no hepatomegaly, no splenomegaly, no mass - Integumentary Integumentary: Present: clear, warm, dry - Psychiatric Psychiatric: other (minimal cognitive impairment) Results - Labs CBC & Chem 7: 07/06/19 07:23 07/06/19 07:21 Labs: Laboratory Last Values WBC 19.8 K/mm3 (4.5-11.0) H 07/06/19 07:23 RBC 5.14 M/mm3 (3.65-5.03) H 07/06/19 07:23 Hgb 12.3 gm/dl (10.1-14.3) 07/06/19 07:23 Hct 37.6 % (30.3-42.9) 07/06/19 07:23 MCV 73 fl (79-97) L 07/06/19 07:23 MCH 24 pg (28-32) L 07/06/19 07:23 MCHC 33 % (30-34) 07/06/19 07:23 RDW 18.9 % (13.2-15.2) H 07/06/19 07:23 Plt Count 233 K/mm3 (140-440) 07/06/19 07:23 Lymph % (Auto) 6.9 % (13.4-35.0) L 07/06/19 07:23 [place] % (Auto) 6.4 % (0.0-7.3) 07/06/19 07:23 Eos % (Auto) 0.0 % (0.0-4.3) 07/06/19 07:23 Baso % (Auto) 0.1 % (0.0-1.8) 07/06/19 07:23 Lymph # 1.4 K/mm3 (1.2-5.4) 07/06/19 07:23 [place] # 1.3 K/mm3 (0.0-0.8) H 07/06/19 07:23 Eos # 0.0 K/mm3 (0.0-0.4) 07/06/19 07:23 Baso # 0.0 K/mm3 (0.0-0.1) 07/06/19 07:23 Add Manual Diff Complete 07/05/19 05:29 Total Counted 100 07/05/19 05:29 Seg Neutrophils % 86.6 % (40.0-70.0) H 07/06/19 07:23 Seg Neuts % (Manual) 93.0 % (40.0-70.0) H 07/05/19 05:29 0 % 07/05/19 05:29 5.0 % (13.4-35.0) L 07/05/19 05:29 Reactive Lymphs % (Man) 0 % 07/05/19 05:29 2.0 % (0.0-7.3) 07/05/19 05:29 0 % (0.0-4.3) 07/05/19 05:29 0 % (0.0-1.8) 07/05/19 05:29 0 % 07/05/19 05:29 0 % 07/05/19 05:29 0 % 07/05/19 05:29 0 % 07/05/19 05:29 Nucleated RBC % Not Reportable 07/05/19 05:29 Seg Neutrophils # 17.1 K/mm3 (1.8-7.7) H 07/06/19 07:23 Seg Neutrophils # Man 18.8 K/mm3 (1.8-7.7) H 07/05/19 05:29 Band Neutrophils # 0.0 K/mm3 07/05/19 05:29 1.0 K/mm3 (1.2-5.4) L 07/05/19 05:29 Abs React Lymphs (Man) 0.0 K/mm3 07/05/19 05:29 0.4 K/mm3 (0.0-0.8) 07/05/19 05:29 0.0 K/mm3 (0.0-0.4) 07/05/19 05:29 0.0 K/mm3 (0.0-0.1) 07/05/19 05:29 0.0 K/mm3 07/05/19 05:29 0.0 K/mm3 07/05/19 05:29 0.0 K/mm3 07/05/19 05:29 Blast Cells # 0.0 K/mm3 07/05/19 05:29 WBC Morphology Not Reportable 07/05/19 05:29 Hypersegmented Neuts Not Reportable 07/05/19 05:29 Hyposegmented Neuts Not Reportable 07/05/19 05:29 Hypogranular Neuts Not Reportable 07/05/19 05:29 Not Reportable 07/05/19 05:29 Not Reportable 07/05/19 05:29 Not Reportable 07/05/19 05:29 Not Reportable 07/05/19 05:29 Not Reportable 07/05/19 05:29 Not Reportable 07/05/19 05:29 Consistent w auto 07/05/19 05:29 Not Reportable 07/05/19 05:29 Plt Clumps, EDTA Not Reportable 07/05/19 05:29 Not Reportable 07/05/19 05:29 Not Reportable 07/05/19 05:29 Not Reportable 07/05/19 05:29 Plt Morphology Comment Not Reportable 07/05/19 05:29 RBC Morphology Not Reportable 07/05/19 05:29 Dimorphic RBCs Not Reportable 07/05/19 05:29 Not Reportable 07/05/19 05:29 Few 07/05/19 05:29 Few 07/05/19 05:29 Few 07/05/19 05:29 Not Reportable 07/05/19 05:29 Not Reportable 07/05/19 05:29 Not Reportable 07/05/19 05:29 Not Reportable 07/05/19 05:29 Not Reportable 07/05/19 05:29 2+ 07/05/19 05:29 Not Reportable 07/05/19 05:29 Not Reportable 07/05/19 05:29 Not Reportable 07/05/19 05:29 Not Reportable 07/05/19 05:29 Not Reportable 07/05/19 05:29 Not Reportable 07/05/19 05:29 Not Reportable 07/05/19 05:29 Not Reportable 07/05/19 05:29 Not Reportable 07/05/19 05:29 Acanthocytes (Spur) Not Reportable 07/05/19 05:29 Rouleaux Not Reportable 07/05/19 05:29 Not Reportable 07/05/19 05:29 Not Reportable 07/05/19 05:29 Not Reportable 07/05/19 05:29 Not Reportable 07/05/19 05:29 Hem Pathologist Commnt No 07/05/19 05:29 PT 13.2 Sec. (12.2-14.9) 07/04/19 01:40 INR 1.03 (0.87-1.13) 07/04/19 01:40 APTT 24.8 Sec. (24.2-36.6) 07/04/19 01:40 Sodium 141 mmol/L (137-145) 07/06/19 07:21 Potassium 3.9 mmol/L (3.6-5.0) 07/06/19 07:21 Chloride 107.8 mmol/L (98-107) H 07/06/19 07:21 Carbon Dioxide 17 mmol/L (22-30) L 07/06/19 07:21 20 mmol/L 07/06/19 07:21 BUN 53 mg/dL (7-17) H 07/06/19 07:21 2.1 mg/dL (0.7-1.2) H 07/06/19 07:21 Estimated GFR 28 ml/min 07/06/19 07:21 25 % 07/06/19 07:21 Glucose 128 mg/dL (65-100) H 07/06/19 07:21 5.8 % (4-6) 07/04/19 01:40 Calcium 8.3 mg/dL (8.4-10.2) L 07/06/19 07:21 0.60 mg/dL (0.1-1.2) 07/04/19 02:04 AST 17 units/L (5-40) 07/04/19 02:04 ALT 10 units/L (7-56) 07/04/19 02:04 99 units/L (35-129) 07/04/19 02:04 < 0.010 ng/mL (0.00-0.029) 07/04/19 02:04 10.2 g/dL (6.3-8.2) H 07/04/19 02:04 3.2 g/dL (3.9-5) L 07/04/19 02:04 0.5 % 07/04/19 02:04 26 units/L (13-60) 07/04/19 02:04 TSH 3.250 mlU/mL (0.270-4.200) 07/04/19 02:04 Free T4 1.37 ng/dL (0.76-1.46) 07/04/19 02:04 Red (Yellow) 07/04/19 04:00 Turbid (Clear) 07/04/19 04:00 6.0 (5.0-7.0) 07/04/19 04:00 Ur Specific [place] 1.012 (1.003-1.030) 07/04/19 04:00 100 mg/dl mg/dL (Negative) 07/04/19 04:00 Neg mg/dL (Negative) 07/04/19 04:00 Neg mg/dL (Negative) 07/04/19 04:00 Lg (Negative) 07/04/19 04:00 Neg (Negative) 07/04/19 04:00 Neg (Negative) 07/04/19 04:00 < 2.0 mg/dL (<2.0) 07/04/19 04:00 Ur Leukocyte Esterase Mod (Negative) 07/04/19 04:00 > 182.0 /HPF (0.0-6.0) H 07/04/19 04:00 > 182.0 /HPF (0.0-6.0) 07/04/19 04:00 4+ /HPF (Negative) 07/04/19 04:00 3+ /HPF 07/04/19 04:00 3+ /HPF 07/04/19 04:00 Active Medications - Current Medications Current Medications: Generic Name Dose Route Start Last Admin Trade Name Freq PRN Reason Stop Dose Admin Acetaminophen 650 mg 07/04/19 05:16 Tylenol PO Q4H PRN Pain MILD(1-3)/Fever >100.5/BYRD Amlodipine Besylate 10 mg 07/04/19 12:00 07/06/19 09:52 Norvasc PO 10 mg QDAY NITO Administration Docusate Sodium 100 mg 07/04/19 10:00 07/06/19 09:53 Colace PO 100 mg BID NITO Administration Doxazosin Mesylate 2 mg 07/04/19 10:00 07/06/19 09:52 Cardura PO 2 mg DAILY NITO Administration Ceftriaxone Sodium 1 gm in 50 mls @ 100 mls/hr 07/05/19 06:00 07/06/19 05:23 Rocephin/Ns 1 Gm/50 Ml IV 100 mls/hr Q24H NITO Administration Protocol Metronidazole 500 mg in 100 mls @ 100 mls/hr 07/04/19 06:00 07/06/19 05:23 Flagyl 500 Mg/100 Ml IV 100 mls/hr Q8HR NITO Administration Protocol Sodium Chloride 1,000 mls @ 75 mls/hr 07/05/19 10:00 07/05/19 18:14 Nacl 0.9% 1000 Ml IV 75 mls/hr DIRECT NITO Administration Labetalol HCl 10 mg 07/04/19 11:30 07/04/19 13:11 Normodyne IV 10 mg Q4H PRN Administration Hypertension Metoprolol Tartrate 2.5 mg 07/04/19 11:37 Lopressor IV Q6HR PRN HR >120 Metoprolol Tartrate 75 mg 07/05/19 12:00 07/06/19 11:06 Lopressor PO 75 mg Q8H NITO Administration Ondansetron HCl 4 mg 07/04/19 05:16 07/04/19 10:50 Zofran IV 4 mg Q6H PRN Administration Nausea And Vomiting Sodium Chloride 10 ml 07/04/19 10:00 07/06/19 09:57 Sodium Chloride Flush Syringe 10 Ml IV 10 ml BID NITO Administration Sodium Chloride 10 ml 07/04/19 05:16 Sodium Chloride Flush Syringe 10 Ml IV PRN PRN LINE FLUSH
--- NOTE | 2019-07-06 12:16 | Progress Note ---
Assessment and Plan - Patient Problems (1) Chronic atrial fibrillation Current Visit: Yes Status: Acute Plan to address problem: Control of atrial flutter ablations optimal. Long-term oral anticoagulation is indicated. Subjective Date of service: 07/06/19 Principal diagnosis: proctitis Interval history: Patient is comfortable, no acute distress. Objective Vital Signs Temp Pulse Resp BP Pulse Ox 07/06/19 07:49 98.0 F 18 115/67 07/06/19 05:26 127/70 07/06/19 04:15 98.0 F 72 18 127/70 100 07/05/19 23:38 98.0 F 91 H 18 117/61 95 07/05/19 22:45 125/77 07/05/19 22:00 88 07/05/19 19:51 98.0 F 20 142/77 07/05/19 17:26 97.6 F 88 18 149/75 100 07/05/19 13:15 100 H 145/91 - Physical Examination General: No Apparent Distress HEENT: Positive: PERRL Neck: Positive: trachea midline Cardiac: Positive: irregularly irregular Lungs: Positive: Decreased Breath Sounds Neuro: Positive: Weakness, Other (left sided deficits) Skin: Positive: Clear Extremities: Absent: edema - Labs and Meds CBC 07/06/19 Range/Units 07:23 WBC 19.8 H (4.5-11.0) K/mm3 RBC 5.14 H (3.65-5.03) M/mm3 Hgb 12.3 (10.1-14.3) gm/dl Hct 37.6 (30.3-42.9) % Plt Count 233 (140-440) K/mm3 Lymph # 1.4 (1.2-5.4) K/mm3 [place] # 1.3 H (0.0-0.8) K/mm3 Eos # 0.0 (0.0-0.4) K/mm3 Baso # 0.0 (0.0-0.1) K/mm3 Comprehensive Metabolic Panel 07/06/19 Range/Units 07:21 Sodium 141 (137-145) mmol/L Potassium 3.9 (3.6-5.0) mmol/L Chloride 107.8 H (98-107) mmol/L Carbon Dioxide 17 L (22-30) mmol/L BUN 53 H (7-17) mg/dL Creatinine 2.1 H (0.7-1.2) mg/dL Glucose 128 H (65-100) mg/dL Calcium 8.3 L (8.4-10.2) mg/dL - Imaging and Cardiology EKG: report reviewed - Allied health notes Allied health notes reviewed: nursing
[2019-07-06] MEDS: SODIUM CHLORIDE 0.9% 1000 ML 1,000 ML IV SCH (13:25)
[2019-07-06] MEDS: SULFAMETHOXAZOLE/TRIMETHOPRIM 200-40 MG/5 ML ORAL LIQD 30 ML PO SCH ×2 (13:54→22:27)
[2019-07-07] MEDS: SODIUM CHLORIDE 0.9% 1000 ML 1,000 ML IV SCH ×2 (04:57→19:48)
[2019-07-07] MEDS: cefTRIAXone/NS 1 GM/50 ML 1 GM/50 ML BAG IV SCH (05:01)
[2019-07-07] MEDS: metroNIDAZOLE/NS 500 MG/100 ML 500 MG/100 ML BAG IV SCH ×3 (05:01→21:43)
[2019-07-07] MEDS: METOPROLOL TARTRATE 50 MG TAB PO SCH ×3 (05:06→19:48)
[2019-07-07] MEDS: DOXAZOSIN 1 MG TAB PO SCH (09:29)
[2019-07-07] MEDS: DOCUSATE SODIUM 100 MG CAP PO SCH ×2 (09:29→21:43)
[2019-07-07] MEDS: amLODIPine 10 MG TAB PO SCH (09:29)
[2019-07-07] MEDS: SULFAMETHOXAZOLE/TRIMETHOPRIM 200-40 MG/5 ML ORAL LIQD 30 ML PO SCH (09:30)
[2019-07-07 10:05] LABS: Basophils % (Auto) 0.1 % (0.0-1.8); Eosinophils # (Auto) 0.2 K/mm3 (0.0-0.4); Hematocrit 36.7 % (30.3-42.9); Hemoglobin 12.1 gm/dl (10.1-14.3); Lymphocytes # (Auto) 1.4 K/mm3 (1.2-5.4); Lymphocytes % (Auto) 8.4 % (13.4-35.0); Mean Corpuscular HGB Conc 33 % (30-34); Mean Corpuscular Volume 72 fl (79-97); Monocytes # (Auto) 1.2 K/mm3 (0.0-0.8); Monocytes % (Auto) 6.9 % (0.0-7.3); Platelet Count 204 K/mm3 (140-440); Red Blood Count 5.07 M/mm3 (3.65-5.03); Red Cell Distribution Width 18.5 % (13.2-15.2)
[2019-07-07 10:11] LABS: Calcium 8.2 mg/dL (8.4-10.2)
--- NOTE | 2019-07-07 10:32 | Progress Note ---
Assessment and Plan - Patient Problems (1) Acute kidney injury superimposed on CKD Current Visit: Yes Status: Acute Plan to address problem: stable renal function. cont gentle IVF with careful monitoring of BP. Avoid nephrotoxins, maintain MAP > 65mmHg. Please ensure that antibiotics are dosed appropriately for renal function. (2) Altered mental status Current Visit: Yes Status: Acute Plan to address problem: improving on ABX treatment. CT head showed no acute findings (3) Hypertensive chronic kidney disease with stage 1 through stage 4 chronic kidney disease, or unspecified chronic kidney disease Current Visit: Yes Status: Chronic Plan to address problem: Monitor blood pressures with current antihypertensive regimen. (4) Atrial fibrillation with rapid ventricular response Current Visit: Yes Status: Acute Plan to address problem: rate control per cardiology. (5) Proctitis Current Visit: Yes Status: Acute Plan to address problem: Continues on IV flagyl. Recommendations per GI. (6) UTI (urinary tract infection) Current Visit: Yes Status: Acute Plan to address problem: Antibiotics per primary attending, please ensure that the antibiotics are does appropriately for her renal function. Subjective Date of service: 07/07/19 Principal diagnosis: proctitis Interval history: Pt awake, alert, weak, denies CP, SOB, palpitations, fever, chills . Objective - Vital Signs Vital signs: Vital Signs - 12hr 07/06/19 07/06/19 07/07/19 22:45 22:52 05:06 Temperature 97.7 F Pulse Rate 101 H Respiratory 20 Rate Blood Pressure 113/88 135/79 O2 Sat by Pulse 97 Oximetry 07/07/19 07/07/19 05:13 08:28 Temperature 98.0 F 97.6 F Pulse Rate 85 Respiratory 18 18 Rate Blood Pressure 128/75 O2 Sat by Pulse 95 Oximetry - General Appearance General appearance: well-developed, well-nourished, appears stated age EENT: ATNC, PERRL, mucous membranes moist Neck: no JVD Respiratory: Present: Clear to Ascultation Cardiology: regular, S1S2 Gastrointestinal: normoactive bowel sounds Integumentary: no rash Neurologic: no focal deficit, strength 5/5, CN 3-12 intact Psychiatric: mood/affect appropriate - Lab 07/07/19 08:53 07/07/19 08:53 Most recent lab results Calcium 8.2 mg/dL (8.4-10.2) L 07/07/19 08:53 Medications & Allergies - Medications Allergies/Adverse Reactions: Allergies No Known Allergies Allergy (Verified 04/18/14 13:51) Home Medications: Home Medications Medication Instructions Recorded Confirmed Last Taken Type Doxazosin Mesylate [Cardura] 2 mg PO DAILY #30 tablet 10/31/16 07/04/19 Unknown Rx amLODIPine [Norvasc] 10 mg PO DAILY #30 tablet 10/31/16 07/04/19 Unknown Rx Hydralazine HCl 50 mg PO TID 07/04/19 07/04/19 Unknown History Lisinopril/Hydrochlorothiazide 1 tab PO DAILY 07/04/19 07/04/19 Unknown History [Zestoretic 20-25 mg] Metoprolol [Lopressor TAB] 50 mg PO BID 07/04/19 07/04/19 Unknown History Warfarin [Coumadin] 5 mg PO DAILY 07/04/19 07/04/19 Unknown History Active Medications: Generic Name Dose Route Start Last Admin Trade Name Freq PRN Reason Stop Dose Admin Acetaminophen 650 mg 07/04/19 05:16 Tylenol PO Q4H PRN Pain MILD(1-3)/Fever >100.5/BYRD Amlodipine Besylate 10 mg 07/04/19 12:00 07/07/19 09:29 Norvasc PO 10 mg QDAY NITO Administration Docusate Sodium 100 mg 07/04/19 10:00 07/07/19 09:29 Colace PO Not Given BID NITO Doxazosin Mesylate 2 mg 07/04/19 10:00 07/07/19 09:29 Cardura PO 2 mg DAILY NITO Administration Ceftriaxone Sodium 1 gm in 50 mls @ 100 mls/hr 07/05/19 06:00 07/07/19 05:01 Rocephin/Ns 1 Gm/50 Ml IV 07/11/19 06:29 100 mls/hr Q24H NITO Administration Protocol Metronidazole 500 mg in 100 mls @ 100 mls/hr 07/04/19 06:00 07/07/19 05:01 Flagyl 500 Mg/100 Ml IV 07/11/19 05:59 100 mls/hr Q8HR NITO Administration Protocol Sodium Chloride 1,000 mls @ 75 mls/hr 07/05/19 10:00 07/07/19 04:57 Nacl 0.9% 1000 Ml IV 75 mls/hr DIRECT NITO Administration Labetalol HCl 10 mg 07/04/19 11:30 07/04/19 13:11 Normodyne IV 10 mg Q4H PRN Administration Hypertension Metoprolol Tartrate 2.5 mg 07/04/19 11:37 Lopressor IV Q6HR PRN HR >120 Metoprolol Tartrate 75 mg 07/05/19 12:00 07/07/19 05:06 Lopressor PO 75 mg Q8H NITO Administration Ondansetron HCl 4 mg 07/04/19 05:16 07/04/19 10:50 Zofran IV 4 mg Q6H PRN Administration Nausea And Vomiting Sodium Chloride 10 ml 07/04/19 10:00 07/07/19 09:30 Sodium Chloride Flush Syringe 10 Ml IV 10 ml BID NITO Administration Sodium Chloride 10 ml 07/04/19 05:16 Sodium Chloride Flush Syringe 10 Ml IV PRN PRN LINE FLUSH Trimethoprim/Sulfamethoxazole 160 mg 07/07/19 10:00 07/07/19 09:30 Bactrim 200-40 Mg/5 Ml PO 07/11/19 10:01 160 mg DAILY NITO Administration
--- NOTE | 2019-07-07 12:39 | Progress Note ---
Assessment and Plan - Patient Problems (1) Gross hematuria Current Visit: Yes Status: Acute Plan to address problem: Materia appears to be resolving. May ridge reduce anticoagulation in a.m. if H&H is stable. (2) Atrial fibrillation with rapid ventricular response Current Visit: Yes Status: Acute Plan to address problem: Patient has regular irregular rhythm. Rate very well controlled. Patient is a candidate for long-term anticoagulation. We'll ridge induced after hematuria resolves. I'll risk outweigh benefits. (3) Mental status, decreased Current Visit: Yes Status: Acute Plan to address problem: Patient's mental status is back at baseline. Alert and oriented 3. (4) Proctitis Current Visit: Yes Status: Acute Plan to address problem: Continue Flagyl. They are renal doses. Still has white count fever curve is coming down. No abdominal pain him to tolerate clears to full seems like improving. (5) UTI (urinary tract infection) Current Visit: Yes Status: Acute Plan to address problem: GI patient on Flagyl Rocephin should cover both gram-positive and some gram- negative coverage for possible UTI. cont current antibiotics. (6) CKD (chronic kidney disease) stage 2, GFR 60-89 ml/min Current Visit: No Status: Chronic Plan to address problem: Patient chronic kidney disease at baseline. (7) HTN (hypertension) Current Visit: No Status: Chronic Plan to address problem: Optimal control blood pressure 128/75. Continue management. (8) Multiple myeloma and immunoproliferative neoplasms Current Visit: No Status: Chronic Plan to address problem: History by family recent treatment for her multiple myeloma. We'll follow with oncology as outpatient. Could also be the problem with acute renal insufficiency. History Interval history: Patient much more alert today. Able to tell me to help movable arm because she had a stroke. Change the TV. The channel. This is much different than previous. Patient's hematuria resolved. Appears to have a decrease urinary output at this point. Hospitalist Physical - Constitutional Vitals: Temp Pulse Resp BP Pulse Ox 97.6 F 84 18 128/75 95 07/07/19 08:28 07/07/19 10:00 07/07/19 08:28 07/07/19 08:28 07/07/19 05:13 General appearance: Present: no acute distress, well-nourished - EENT Eyes: Present: PERRL, EOM intact ENT: hearing intact, clear oral mucosa, dentition normal - Neck Neck: Present: supple, normal ROM - Respiratory Respiratory effort: normal Respiratory: bilateral: CTA - Cardiovascular Rhythm: regularly irregular - Extremities Extremities: no ischemia, pulses intact, pulses symmetrical, No edema, normal temperature, normal color Extremity abnormal: other (hemiparesis left) Peripheral Pulses: within normal limits - Abdominal General gastrointestinal: soft, non-tender, non-distended, normal bowel sounds - Integumentary Integumentary: Present: clear, warm, dry - Psychiatric Psychiatric: appropriate mood/affect, memory intact - Neurologic Neurologic: other (minimal cognitive impairment) Results - Labs CBC & Chem 7: 07/07/19 08:53 07/07/19 08:53 Labs: Laboratory Last Values WBC 17.0 K/mm3 (4.5-11.0) H 07/07/19 08:53 RBC 5.07 M/mm3 (3.65-5.03) H 07/07/19 08:53 Hgb 12.1 gm/dl (10.1-14.3) 07/07/19 08:53 Hct 36.7 % (30.3-42.9) 07/07/19 08:53 MCV 72 fl (79-97) L 07/07/19 08:53 MCH 24 pg (28-32) L 07/07/19 08:53 MCHC 33 % (30-34) 07/07/19 08:53 RDW 18.5 % (13.2-15.2) H 07/07/19 08:53 Plt Count 204 K/mm3 (140-440) 07/07/19 08:53 Lymph % (Auto) 8.4 % (13.4-35.0) L 07/07/19 08:53 Gaston % (Auto) 6.9 % (0.0-7.3) 07/07/19 08:53 Eos % (Auto) 1.0 % (0.0-4.3) 07/07/19 08:53 Baso % (Auto) 0.1 % (0.0-1.8) 07/07/19 08:53 Lymph # 1.4 K/mm3 (1.2-5.4) 07/07/19 08:53 Gaston # 1.2 K/mm3 (0.0-0.8) H 07/07/19 08:53 Eos # 0.2 K/mm3 (0.0-0.4) 07/07/19 08:53 Baso # 0.0 K/mm3 (0.0-0.1) 07/07/19 08:53 Add Manual Diff Complete 07/05/19 05:29 Total Counted 100 07/05/19 05:29 Seg Neutrophils % 83.6 % (40.0-70.0) H 07/07/19 08:53 Seg Neuts % (Manual) 93.0 % (40.0-70.0) H 07/05/19 05:29 0 % 07/05/19 05:29 5.0 % (13.4-35.0) L 07/05/19 05:29 Reactive Lymphs % (Man) 0 % 07/05/19 05:29 2.0 % (0.0-7.3) 07/05/19 05:29 0 % (0.0-4.3) 07/05/19 05:29 0 % (0.0-1.8) 07/05/19 05:29 0 % 07/05/19 05:29 0 % 07/05/19 05:29 0 % 07/05/19 05:29 0 % 07/05/19 05:29 Nucleated RBC % Not Reportable 07/05/19 05:29 Seg Neutrophils # 14.2 K/mm3 (1.8-7.7) H 07/07/19 08:53 Seg Neutrophils # Man 18.8 K/mm3 (1.8-7.7) H 07/05/19 05:29 Band Neutrophils # 0.0 K/mm3 07/05/19 05:29 1.0 K/mm3 (1.2-5.4) L 07/05/19 05:29 Abs React Lymphs (Man) 0.0 K/mm3 07/05/19 05:29 0.4 K/mm3 (0.0-0.8) 07/05/19 05:29 0.0 K/mm3 (0.0-0.4) 07/05/19 05:29 0.0 K/mm3 (0.0-0.1) 07/05/19 05:29 0.0 K/mm3 07/05/19 05:29 0.0 K/mm3 07/05/19 05:29 0.0 K/mm3 07/05/19 05:29 Blast Cells # 0.0 K/mm3 07/05/19 05:29 WBC Morphology Not Reportable 07/05/19 05:29 Hypersegmented Neuts Not Reportable 07/05/19 05:29 Hyposegmented Neuts Not Reportable 07/05/19 05:29 Hypogranular Neuts Not Reportable 07/05/19 05:29 Not Reportable 07/05/19 05:29 Not Reportable 07/05/19 05:29 Not Reportable 07/05/19 05:29 Not Reportable 07/05/19 05:29 Not Reportable 07/05/19 05:29 Not Reportable 07/05/19 05:29 Consistent w auto 07/05/19 05:29 Not Reportable 07/05/19 05:29 Plt Clumps, EDTA Not Reportable 07/05/19 05:29 Not Reportable 07/05/19 05:29 Not Reportable 07/05/19 05:29 Not Reportable 07/05/19 05:29 Plt Morphology Comment Not Reportable 07/05/19 05:29 RBC Morphology Not Reportable 07/05/19 05:29 Dimorphic RBCs Not Reportable 07/05/19 05:29 Not Reportable 07/05/19 05:29 Few 07/05/19 05:29 Few 07/05/19 05:29 Few 07/05/19 05:29 Not Reportable 07/05/19 05:29 Not Reportable 07/05/19 05:29 Not Reportable 07/05/19 05:29 Not Reportable 07/05/19 05:29 Not Reportable 07/05/19 05:29 2+ 07/05/19 05:29 Not Reportable 07/05/19 05:29 Not Reportable 07/05/19 05:29 Not Reportable 07/05/19 05:29 Not Reportable 07/05/19 05:29 Not Reportable 07/05/19 05:29 Not Reportable 07/05/19 05:29 Not Reportable 07/05/19 05:29 Not Reportable 07/05/19 05:29 Not Reportable 07/05/19 05:29 Acanthocytes (Spur) Not Reportable 07/05/19 05:29 Rouleaux Not Reportable 07/05/19 05:29 Not Reportable 07/05/19 05:29 Not Reportable 07/05/19 05:29 Not Reportable 07/05/19 05:29 Not Reportable 07/05/19 05:29 Hem Pathologist Commnt No 07/05/19 05:29 PT 13.2 Sec. (12.2-14.9) 07/04/19 01:40 INR 1.03 (0.87-1.13) 07/04/19 01:40 APTT 24.8 Sec. (24.2-36.6) 07/04/19 01:40 Sodium 142 mmol/L (137-145) 07/07/19 08:53 Potassium 3.7 mmol/L (3.6-5.0) 07/07/19 08:53 Chloride 108.3 mmol/L (98-107) H 07/07/19 08:53 Carbon Dioxide 17 mmol/L (22-30) L 07/07/19 08:53 20 mmol/L 07/07/19 08:53 BUN 52 mg/dL (7-17) H 07/07/19 08:53 1.8 mg/dL (0.7-1.2) H 07/07/19 08:53 Estimated GFR 33 ml/min 07/07/19 08:53 29 % 07/07/19 08:53 Glucose 121 mg/dL (65-100) H 07/07/19 08:53 5.8 % (4-6) 07/04/19 01:40 Calcium 8.2 mg/dL (8.4-10.2) L 07/07/19 08:53 0.60 mg/dL (0.1-1.2) 07/04/19 02:04 AST 17 units/L (5-40) 07/04/19 02:04 ALT 10 units/L (7-56) 07/04/19 02:04 99 units/L (35-129) 07/04/19 02:04 < 0.010 ng/mL (0.00-0.029) 07/04/19 02:04 10.2 g/dL (6.3-8.2) H 07/04/19 02:04 3.2 g/dL (3.9-5) L 07/04/19 02:04 0.5 % 07/04/19 02:04 26 units/L (13-60) 07/04/19 02:04 TSH 3.250 mlU/mL (0.270-4.200) 07/04/19 02:04 Free T4 1.37 ng/dL (0.76-1.46) 07/04/19 02:04 Red (Yellow) 07/04/19 04:00 Turbid (Clear) 07/04/19 04:00 6.0 (5.0-7.0) 07/04/19 04:00 Ur Specific Dale 1.012 (1.003-1.030) 07/04/19 04:00 100 mg/dl mg/dL (Negative) 07/04/19 04:00 Neg mg/dL (Negative) 07/04/19 04:00 Neg mg/dL (Negative) 07/04/19 04:00 Lg (Negative) 07/04/19 04:00 Neg (Negative) 07/04/19 04:00 Neg (Negative) 07/04/19 04:00 < 2.0 mg/dL (<2.0) 07/04/19 04:00 Ur Leukocyte Esterase Mod (Negative) 07/04/19 04:00 > 182.0 /HPF (0.0-6.0) H 07/04/19 04:00 > 182.0 /HPF (0.0-6.0) 07/04/19 04:00 4+ /HPF (Negative) 07/04/19 04:00 3+ /HPF 07/04/19 04:00 3+ /HPF 07/04/19 04:00 Active Medications - Current Medications Current Medications: Generic Name Dose Route Start Last Admin Trade Name Freq PRN Reason Stop Dose Admin Acetaminophen 650 mg 07/04/19 05:16 Tylenol PO Q4H PRN Pain MILD(1-3)/Fever >100.5/BYRD Amlodipine Besylate 10 mg 07/04/19 12:00 07/07/19 09:29 Norvasc PO 10 mg QDAY NITO Administration Docusate Sodium 100 mg 07/04/19 10:00 07/07/19 09:29 Colace PO Not Given BID NITO Doxazosin Mesylate 2 mg 07/04/19 10:00 07/07/19 09:29 Cardura PO 2 mg DAILY NITO Administration Ceftriaxone Sodium 1 gm in 50 mls @ 100 mls/hr 07/05/19 06:00 07/07/19 05:01 Rocephin/Ns 1 Gm/50 Ml IV 07/11/19 06:29 100 mls/hr Q24H NITO Administration Protocol Metronidazole 500 mg in 100 mls @ 100 mls/hr 07/04/19 06:00 07/07/19 05:01 Flagyl 500 Mg/100 Ml IV 07/11/19 05:59 100 mls/hr Q8HR NITO Administration Protocol Sodium Chloride 1,000 mls @ 75 mls/hr 07/05/19 10:00 07/07/19 04:57 Nacl 0.9% 1000 Ml IV 75 mls/hr DIRECT NITO Administration Labetalol HCl 10 mg 07/04/19 11:30 07/04/19 13:11 Normodyne IV 10 mg Q4H PRN Administration Hypertension Metoprolol Tartrate 2.5 mg 07/04/19 11:37 Lopressor IV Q6HR PRN HR >120 Metoprolol Tartrate 75 mg 07/05/19 12:00 07/07/19 05:06 Lopressor PO 75 mg Q8H NITO Administration Ondansetron HCl 4 mg 07/04/19 05:16 07/04/19 10:50 Zofran IV 4 mg Q6H PRN Administration Nausea And Vomiting Sodium Chloride 10 ml 07/04/19 10:00 07/07/19 09:30 Sodium Chloride Flush Syringe 10 Ml IV 10 ml BID NITO Administration Sodium Chloride 10 ml 07/04/19 05:16 Sodium Chloride Flush Syringe 10 Ml IV PRN PRN LINE FLUSH Trimethoprim/Sulfamethoxazole 160 mg 07/07/19 10:00 07/07/19 09:30 Bactrim 200-40 Mg/5 Ml PO 07/11/19 10:01 160 mg DAILY NITO Administration
[2019-07-07] MEDS: ONDANSETRON 4 MG/2 ML INJ IV PRN (14:51)
--- NOTE | 2019-07-07 17:11 | Progress Note ---
Assessment and Plan - Patient Problems (1) Chronic atrial fibrillation Current Visit: Yes Status: Acute Plan to address problem: Rate control of atrial flutter is optimal. Long-term oral anticoagulation is indicated. Subjective Date of service: 07/07/19 Principal diagnosis: proctitis Interval history: Patient is comfortable, no acute distress. Objective Vital Signs Temp Pulse Pulse Resp BP Pulse Ox 07/07/19 12:34 98.2 F 18 152/81 07/07/19 10:00 84 07/07/19 08:28 97.6 F 18 128/75 07/07/19 05:13 98.0 F 85 18 95 07/07/19 05:06 135/79 07/06/19 22:52 97.7 F 07/06/19 22:45 101 H 20 113/88 97 07/06/19 22:27 138/79 07/06/19 22:00 101 H 07/06/19 20:39 106 H 07/06/19 20:17 97.6 F 07/06/19 20:15 103 H 18 138/79 98 07/06/19 17:15 98.3 F 18 135/67 - Physical Examination General: No Apparent Distress HEENT: Positive: PERRL Neck: Positive: trachea midline Cardiac: Positive: Reg Rate and Rhythm Lungs: Positive: Decreased Breath Sounds Neuro: Positive: Weakness, Other (left sided deficits) Skin: Positive: Clear Extremities: Absent: edema - Labs and Meds CBC 07/07/19 Range/Units 08:53 WBC 17.0 H (4.5-11.0) K/mm3 RBC 5.07 H (3.65-5.03) M/mm3 Hgb 12.1 (10.1-14.3) gm/dl Hct 36.7 (30.3-42.9) % Plt Count 204 (140-440) K/mm3 Lymph # 1.4 (1.2-5.4) K/mm3 Mcdonald # 1.2 H (0.0-0.8) K/mm3 Eos # 0.2 (0.0-0.4) K/mm3 Baso # 0.0 (0.0-0.1) K/mm3 Comprehensive Metabolic Panel 07/07/19 Range/Units 08:53 Sodium 142 (137-145) mmol/L Potassium 3.7 (3.6-5.0) mmol/L Chloride 108.3 H (98-107) mmol/L Carbon Dioxide 17 L (22-30) mmol/L BUN 52 H (7-17) mg/dL Creatinine 1.8 H (0.7-1.2) mg/dL Glucose 121 H (65-100) mg/dL Calcium 8.2 L (8.4-10.2) mg/dL - Imaging and Cardiology EKG: report reviewed - Allied health notes Allied health notes reviewed: nursing
[2019-07-08] MEDS: METOPROLOL TARTRATE 50 MG TAB PO SCH (03:36)
[2019-07-08] MEDS: metroNIDAZOLE/NS 500 MG/100 ML 500 MG/100 ML BAG IV SCH (05:50)
[2019-07-08] MEDS: cefTRIAXone/NS 1 GM/50 ML 1 GM/50 ML BAG IV SCH (06:05)
[2019-07-08 09:14] VITALS: BP 118/73
--- NOTE | 2019-07-08 09:47 | Progress Note ---
Assessment and Plan - Patient Problems (1) Acute kidney injury superimposed on CKD Current Visit: Yes Status: Acute Plan to address problem: stable renal function. Will stop IVF given stable renal function. Avoid nephrotoxins, maintain MAP > 65mmHg. Please ensure that antibiotics are dosed appropriately for renal function. (2) Altered mental status Current Visit: Yes Status: Acute Plan to address problem: improving on ABX treatment. CT head showed no acute findings (3) Hypertensive chronic kidney disease with stage 1 through stage 4 chronic kidney disease, or unspecified chronic kidney disease Current Visit: Yes Status: Chronic Plan to address problem: Monitor blood pressures with current antihypertensive regimen. (4) Atrial fibrillation with rapid ventricular response Current Visit: Yes Status: Acute Plan to address problem: rate control per cardiology. (5) Proctitis Current Visit: Yes Status: Acute Plan to address problem: Continues on IV flagyl. Recommendations per GI. (6) UTI (urinary tract infection) Current Visit: Yes Status: Acute Plan to address problem: Antibiotics per primary attending, please ensure that the antibiotics are does appropriately for her renal function. Subjective Date of service: 07/08/19 Principal diagnosis: proctitis Interval history: Pt awake, alert, weak, mild respiratory distress, denies CP, palpitations, fever , chills . Objective - Vital Signs Vital signs: Vital Signs - 12hr 07/07/19 07/08/19 07/08/19 23:57 03:36 04:33 Temperature 98.3 F 98.1 F Pulse Rate 76 104 H 67 Respiratory 18 18 Rate Blood Pressure 115/70 117/78 119/78 O2 Sat by Pulse 93 96 Oximetry 07/08/19 09:00 Temperature 97.9 F Pulse Rate 95 H Respiratory 18 Rate Blood Pressure 118/73 O2 Sat by Pulse 92 Oximetry - General Appearance General appearance: well-developed, well-nourished, appears stated age EENT: ATNC, PERRL, mucous membranes moist Neck: no JVD Respiratory: Present: Decreased Breath Sounds Cardiology: regular, S1S2 Gastrointestinal: normoactive bowel sounds Integumentary: no rash, other (no pitting edema ) Neurologic: no focal deficit, alert and oriented x3, strength 5/5, CN 3-[address] Psychiatric: mood/affect appropriate, cooperative - Lab 07/07/19 08:53 07/07/19 08:53 Most recent lab results Calcium 8.2 mg/dL (8.4-10.2) L 07/07/19 08:53 Medications & Allergies - Medications Allergies/Adverse Reactions: Allergies No Known Allergies Allergy (Verified 04/18/14 13:51) Home Medications: Home Medications Medication Instructions Recorded Confirmed Last Taken Type Doxazosin Mesylate [Cardura] 2 mg PO DAILY #30 tablet 10/31/16 07/04/19 Unknown Rx amLODIPine [Norvasc] 10 mg PO DAILY #30 tablet 10/31/16 07/04/19 Unknown Rx Hydralazine HCl 50 mg PO TID 07/04/19 07/04/19 Unknown History Lisinopril/Hydrochlorothiazide 1 tab PO DAILY 07/04/19 07/04/19 Unknown History [Zestoretic 20-25 mg] Metoprolol [Lopressor TAB] 50 mg PO BID 07/04/19 07/04/19 Unknown History Warfarin [Coumadin] 5 mg PO DAILY 07/04/19 07/04/19 Unknown History Active Medications: Generic Name Dose Route Start Last Admin Trade Name Freq PRN Reason Stop Dose Admin Acetaminophen 650 mg 07/04/19 05:16 07/07/19 12:43 Tylenol PO 650 mg Q4H PRN Administration Pain MILD(1-3)/Fever >100.5/BYRD Amlodipine Besylate 10 mg 07/04/19 12:00 07/07/19 09:29 Norvasc PO 10 mg QDAY NITO Administration Docusate Sodium 100 mg 07/04/19 10:00 07/07/19 21:43 Colace PO 100 mg BID NITO Administration Doxazosin Mesylate 2 mg 07/04/19 10:00 07/07/19 09:29 Cardura PO 2 mg DAILY NITO Administration Ceftriaxone Sodium 1 gm in 50 mls @ 100 mls/hr 07/05/19 06:00 07/08/19 06:05 Rocephin/Ns 1 Gm/50 Ml IV 07/11/19 06:29 100 mls/hr Q24H NITO Administration Protocol Metronidazole 500 mg in 100 mls @ 100 mls/hr 07/04/19 06:00 07/08/19 05:50 Flagyl 500 Mg/100 Ml IV 07/11/19 05:59 100 mls/hr Q8HR NITO Administration Protocol Labetalol HCl 10 mg 07/04/19 11:30 07/04/19 13:11 Normodyne IV 10 mg Q4H PRN Administration Hypertension Metoprolol Tartrate 2.5 mg 07/04/19 11:37 Lopressor IV Q6HR PRN HR >120 Metoprolol Tartrate 75 mg 07/05/19 12:00 07/08/19 03:36 Lopressor PO 75 mg Q8H NITO Administration Ondansetron HCl 4 mg 07/04/19 05:16 07/07/19 14:51 Zofran IV 4 mg Q6H PRN Administration Nausea And Vomiting Sodium Chloride 10 ml 07/04/19 10:00 07/07/19 21:43 Sodium Chloride Flush Syringe 10 Ml IV 10 ml BID NITO Administration Sodium Chloride 10 ml 07/04/19 05:16 Sodium Chloride Flush Syringe 10 Ml IV PRN PRN LINE FLUSH Trimethoprim/Sulfamethoxazole 160 mg 07/07/19 10:00 07/07/19 09:30 Bactrim 200-40 Mg/5 Ml PO 07/11/19 10:01 160 mg DAILY NITO Administration
[2019-07-08] MEDS: amLODIPine 10 MG TAB PO SCH (11:30)
[2019-07-08] MEDS: DOXAZOSIN 1 MG TAB PO SCH (11:30)
[2019-07-08] MEDS: DOCUSATE SODIUM 100 MG CAP PO SCH (11:30)
[2019-07-08] MEDS: SULFAMETHOXAZOLE/TRIMETHOPRIM 200-40 MG/5 ML ORAL LIQD 30 ML PO SCH (11:31)
--- NOTE | 2019-07-08 12:42 | Progress Note ---
Assessment and Plan - Patient Problems (1) Gross hematuria Current Visit: Yes Status: Acute Plan to address problem: She will gross hematuria appears to be resolving. Renal function appears to be resolving as well. May reinitiate Coumadin in a.m. And follow CBC. (2) Atrial fibrillation with rapid ventricular response Current Visit: Yes Status: Acute Plan to address problem: Patient has regular irregular rhythm. Rate very well controlled. Patient is a candidate for long-term anticoagulation. We'll ridge induced after hematuria resolves. I'll risk outweigh benefits. In may reinitiate Coumadin in a.m. hematuria seems to resolve. (3) Mental status, decreased Current Visit: Yes Status: Acute Plan to address problem: Patient has improved mental status most likely encephalopathy secondary to sepsis. (4) Proctitis Current Visit: Yes Status: Acute Plan to address problem: Continue Flagyl. They are renal doses. Still has white count fever curve is co daniel down. This is the cause for patient's sepsis. No abdominal pain him to tolerate clears to full seems like improving. (5) UTI (urinary tract infection) Current Visit: Yes Status: Acute Plan to address problem: GI patient on Flagyl Rocephin should cover both gram-positive and some gram- negative coverage for possible UTI. cont current antibiotics. Sepsis present on admission continue Flagyl Rocephin. (6) CKD (chronic kidney disease) stage 2, GFR 60-89 ml/min Current Visit: No Status: Chronic Plan to address problem: Patient chronic kidney disease at baseline. (7) HTN (hypertension) Current Visit: No Status: Chronic Plan to address problem: Optimal control blood pressure 128/75. Continue management. Continue to observe blood pressure has done well. Not requiring coverage. (8) Multiple myeloma and immunoproliferative neoplasms Current Visit: No Status: Chronic Plan to address problem: History by family recent treatment for her multiple myeloma. We'll follow with oncology as outpatient. Could also be the problem with acute renal insufficiency. (9) Sepsis Current Visit: Yes Status: Acute Plan to address problem: OT factorial present on admission secondary to proctitis and also UTI. History Interval history: Patient is more alert than yesterday. Most likely back at baseline. Patient remains weak with debility or require longterm facility placement. Discussed with case management. Hospitalist Physical - Constitutional Vitals: Temp Pulse Resp BP Pulse Ox 97.9 F 95 H 18 118/73 92 07/08/19 09:00 07/08/19 09:00 07/08/19 09:00 07/08/19 09:00 07/08/19 09:00 General appearance: Present: no acute distress, well-nourished, other (which more alert much more communicative) - EENT Eyes: Present: PERRL, EOM intact - Neck Neck: Present: supple, normal ROM - Respiratory Respiratory: bilateral: CTA (layer.) - Cardiovascular Rhythm: regular - Extremities Extremities: no ischemia, pulses intact, pulses symmetrical, No edema, normal t emperature, normal color - Abdominal General gastrointestinal: soft, non-tender, non-distended, normal bowel sounds, no hepatomegaly, no splenomegaly, no mass - Integumentary Integumentary: Present: clear, warm, dry - Psychiatric Psychiatric: appropriate mood/affect, intact judgment & insight, memory intact - Neurologic Neurologic: focal deficits Results - Labs CBC & Chem 7: 07/07/19 08:53 07/07/19 08:53 Labs: Laboratory Last Values WBC 17.0 K/mm3 (4.5-11.0) H 07/07/19 08:53 RBC 5.07 M/mm3 (3.65-5.03) H 07/07/19 08:53 Hgb 12.1 gm/dl (10.1-14.3) 07/07/19 08:53 Hct 36.7 % (30.3-42.9) 07/07/19 08:53 MCV 72 fl (79-97) L 07/07/19 08:53 MCH 24 pg (28-32) L 07/07/19 08:53 MCHC 33 % (30-34) 07/07/19 08:53 RDW 18.5 % (13.2-15.2) H 07/07/19 08:53 Plt Count 204 K/mm3 (140-440) 07/07/19 08:53 Lymph % (Auto) 8.4 % (13.4-35.0) L 07/07/19 08:53 [place] % (Auto) 6.9 % (0.0-7.3) 07/07/19 08:53 Eos % (Auto) 1.0 % (0.0-4.3) 07/07/19 08:53 Baso % (Auto) 0.1 % (0.0-1.8) 07/07/19 08:53 Lymph # 1.4 K/mm3 (1.2-5.4) 07/07/19 08:53 [place] # 1.2 K/mm3 (0.0-0.8) H 07/07/19 08:53 Eos # 0.2 K/mm3 (0.0-0.4) 07/07/19 08:53 Baso # 0.0 K/mm3 (0.0-0.1) 07/07/19 08:53 Add Manual Diff Complete 07/05/19 05:29 Total Counted 100 07/05/19 05:29 Seg Neutrophils % 83.6 % (40.0-70.0) H 07/07/19 08:53 Seg Neuts % (Manual) 93.0 % (40.0-70.0) H 07/05/19 05:29 Band Neutrophils % 0 % 07/05/19 05:29 Lymphocytes % (Manual) 5.0 % (13.4-35.0) L 07/05/19 05:29 Reactive Lymphs % (Man) 0 % 07/05/19 05:29 Monocytes % (Manual) 2.0 % (0.0-7.3) 07/05/19 05:29 Eosinophils % (Manual) 0 % (0.0-4.3) 07/05/19 05:29 Basophils % (Manual) 0 % (0.0-1.8) 07/05/19 05:29 Metamyelocytes % 0 % 07/05/19 05:29 Myelocytes % 0 % 07/05/19 05:29 Promyelocytes % 0 % 07/05/19 05:29 Blast Cells % 0 % 07/05/19 05:29 Nucleated RBC % Not Reportable 07/05/19 05:29 Seg Neutrophils # 14.2 K/mm3 (1.8-7.7) H 07/07/19 08:53 Seg Neutrophils # Man 18.8 K/mm3 (1.8-7.7) H 07/05/19 05:29 Band Neutrophils # 0.0 K/mm3 07/05/19 05:29 Lymphocytes # (Manual) 1.0 K/mm3 (1.2-5.4) L 07/05/19 05:29 Abs React Lymphs (Man) 0.0 K/mm3 07/05/19 05:29 Monocytes # (Manual) 0.4 K/mm3 (0.0-0.8) 07/05/19 05:29 Eosinophils # (Manual) 0.0 K/mm3 (0.0-0.4) 07/05/19 05:29 Basophils # (Manual) 0.0 K/mm3 (0.0-0.1) 07/05/19 05:29 Metamyelocytes # 0.0 K/mm3 07/05/19 05:29 Myelocytes # 0.0 K/mm3 07/05/19 05:29 Promyelocytes # 0.0 K/mm3 07/05/19 05:29 Blast Cells # 0.0 K/mm3 07/05/19 05:29 WBC Morphology Not Reportable 07/05/19 05:29 Hypersegmented Neuts Not Reportable 07/05/19 05:29 Hyposegmented Neuts Not Reportable 07/05/19 05:29 Hypogranular Neuts Not Reportable 07/05/19 05:29 Smudge Cells Not Reportable 07/05/19 05:29 Toxic Granulation Not Reportable 07/05/19 05:29 Toxic Vacuolation Not Reportable 07/05/19 05:29 Dohle Bodies Not Reportable 07/05/19 05:29 Pelger-Huet Anomaly Not Reportable 07/05/19 05:29 Colleen Rods Not Reportable 07/05/19 05:29 Platelet Estimate Consistent w auto 07/05/19 05:29 Clumped Platelets Not Reportable 07/05/19 05:29 Plt Clumps, EDTA Not Reportable 07/05/19 05:29 Large Platelets Not Reportable 07/05/19 05:29 Giant Platelets Not Reportable 07/05/19 05:29 Platelet Satelliting Not Reportable 07/05/19 05:29 Plt Morphology Comment Not Reportable 07/05/19 05:29 RBC Morphology Not Reportable 07/05/19 05:29 Dimorphic RBCs Not Reportable 07/05/19 05:29 Polychromasia Not Reportable 07/05/19 05:29 Hypochromasia Few 07/05/19 05:29 Poikilocytosis Few 07/05/19 05:29 Anisocytosis Few 07/05/19 05:29 Microcytosis Not Reportable 07/05/19 05:29 Macrocytosis Not Reportable 07/05/19 05:29 Spherocytes Not Reportable 07/05/19 05:29 Pappenheimer Bodies Not Reportable 07/05/19 05:29 Sickle Cells Not Reportable 07/05/19 05:29 Target Cells 2+ 07/05/19 05:29 Tear Drop Cells Not Reportable 07/05/19 05:29 Ovalocytes Not Reportable 07/05/19 05:29 Helmet Cells Not Reportable 07/05/19 05:29 [place] Bodies Not Reportable 07/05/19 05:29 [place] Rings Not Reportable 07/05/19 05:29 [place] Cells Not Reportable 07/05/19 05:29 Bite Cells Not Reportable 07/05/19 05:29 Crenated Cell Not Reportable 07/05/19 05:29 Elliptocytes Not Reportable 07/05/19 05:29 Acanthocytes (Spur) Not Reportable 07/05/19 05:29 Rouleaux Not Reportable 07/05/19 05:29 Hemoglobin C Crystals Not Reportable 07/05/19 05:29 Schistocytes Not Reportable 07/05/19 05:29 Malaria parasites Not Reportable 07/05/19 05:29 Brett Bodies Not Reportable 07/05/19 05:29 Hem Pathologist Commnt No 07/05/19 05:29 PT 13.2 Sec. (12.2-14.9) 07/04/19 01:40 INR 1.03 (0.87-1.13) 07/04/19 01:40 APTT 24.8 Sec. (24.2-36.6) 07/04/19 01:40 Sodium 142 mmol/L (137-145) 07/07/19 08:53 Potassium 3.7 mmol/L (3.6-5.0) 07/07/19 08:53 Chloride 108.3 mmol/L (98-107) H 07/07/19 08:53 Carbon Dioxide 17 mmol/L (22-30) L 07/07/19 08:53 Anion Gap 20 mmol/L 07/07/19 08:53 BUN 52 mg/dL (7-17) H 07/07/19 08:53 Creatinine 1.8 mg/dL (0.7-1.2) H 07/07/19 08:53 Estimated GFR 33 ml/min 07/07/19 08:53 BUN/Creatinine Ratio 29 % 07/07/19 08:53 Glucose 121 mg/dL (65-100) H 07/07/19 08:53 Hemoglobin A1c 5.8 % (4-6) 07/04/19 01:40 Calcium 8.2 mg/dL (8.4-10.2) L 07/07/19 08:53 Total Bilirubin 0.60 mg/dL (0.1-1.2) 07/04/19 02:04 AST 17 units/L (5-40) 07/04/19 02:04 ALT 10 units/L (7-56) 07/04/19 02:04 Alkaline Phosphatase 99 units/L (35-129) 07/04/19 02:04 Troponin T < 0.010 ng/mL (0.00-0.029) 07/04/19 02:04 Total Protein 10.2 g/dL (6.3-8.2) H 07/04/19 02:04 Albumin 3.2 g/dL (3.9-5) L 07/04/19 02:04 Albumin/Globulin Ratio 0.5 % 07/04/19 02:04 Lipase 26 units/L (13-60) 07/04/19 02:04 TSH 3.250 mlU/mL (0.270-4.200) 07/04/19 02:04 Free T4 1.37 ng/dL (0.76-1.46) 07/04/19 02:04 Urine Color Red (Yellow) 07/04/19 04:00 Urine Turbidity Turbid (Clear) 07/04/19 04:00 Urine pH 6.0 (5.0-7.0) 07/04/19 04:00 Ur Specific [place] 1.012 (1.003-1.030) 07/04/19 04:00 Urine Protein 100 mg/dl mg/dL (Negative) 07/04/19 04:00 Urine Glucose (UA) Neg mg/dL (Negative) 07/04/19 04:00 Urine Ketones Neg mg/dL (Negative) 07/04/19 04:00 Urine Blood Lg (Negative) 07/04/19 04:00 Urine Nitrite Neg (Negative) 07/04/19 04:00 Urine Bilirubin Neg (Negative) 07/04/19 04:00 Urine Urobilinogen < 2.0 mg/dL (<2.0) 07/04/19 04:00 Ur Leukocyte Esterase Mod (Negative) 07/04/19 04:00 Urine WBC (Auto) > 182.0 /HPF (0.0-6.0) H 07/04/19 04:00 Urine RBC (Auto) > 182.0 /HPF (0.0-6.0) 07/04/19 04:00 Urine Bacteria (Auto) 4+ /HPF (Negative) 07/04/19 04:00 Urine WBC Clumps 3+ /HPF 07/04/19 04:00 Urine Mucus 3+ /HPF 07/04/19 04:00 Active Medications - Current Medications Current Medications: Generic Name Dose Route Start Last Admin Trade Name Freq PRN Reason Stop Dose Admin Acetaminophen 650 mg 07/04/19 05:16 07/07/19 12:43 Tylenol PO 650 mg Q4H PRN Administration Pain MILD(1-3)/Fever >100.5/BYRD Amlodipine Besylate 10 mg 07/04/19 12:00 07/08/19 11:30 Norvasc PO 10 mg QDAY NITO Administration Docusate Sodium 100 mg 07/04/19 10:00 07/08/19 11:30 Colace PO 100 mg BID NITO Administration Doxazosin Mesylate 2 mg 07/04/19 10:00 07/08/19 11:30 Cardura PO 2 mg DAILY NITO Administration Ceftriaxone Sodium 1 gm in 50 mls @ 100 mls/hr 07/05/19 06:00 07/08/19 06:05 Rocephin/Ns 1 Gm/50 Ml IV 07/11/19 06:29 100 mls/hr Q24H NITO Administration Protocol Metronidazole 500 mg in 100 mls @ 100 mls/hr 07/04/19 06:00 07/08/19 05:50 Flagyl 500 Mg/100 Ml IV 07/11/19 05:59 100 mls/hr Q8HR NITO Administration Protocol Labetalol HCl 10 mg 07/04/19 11:30 07/04/19 13:11 Normodyne IV 10 mg Q4H PRN Administration Hypertension Metoprolol Tartrate 2.5 mg 07/04/19 11:37 Lopressor IV Q6HR PRN HR >120 Metoprolol Tartrate 75 mg 07/05/19 12:00 07/08/19 03:36 Lopressor PO 75 mg Q8H NITO Administration Ondansetron HCl 4 mg 07/04/19 05:16 07/07/19 14:51 Zofran IV 4 mg Q6H PRN Administration Nausea And Vomiting Sodium Chloride 10 ml 07/04/19 10:00 07/08/19 11:31 Sodium Chloride Flush Syringe 10 Ml IV 10 ml BID NITO Administration Sodium Chloride 10 ml 07/04/19 05:16 Sodium Chloride Flush Syringe 10 Ml IV PRN PRN LINE FLUSH Trimethoprim/Sulfamethoxazole 160 mg 07/07/19 10:00 07/08/19 11:31 Bactrim 200-40 Mg/5 Ml PO 07/11/19 10:01 160 mg DAILY NITO Administration
--- NOTE | 2019-07-08 15:36 | Progress Note ---
Assessment and Plan - Patient Problems (1) Chronic atrial fibrillation Current Visit: Yes Status: Acute Plan to address problem: Rate control of atrial flutter is optimal. Long-term oral anticoagulation is indicated. Subjective Date of service: 07/08/19 Principal diagnosis: proctitis Interval history: Patient is comfortable, no acute distress. Objective Vital Signs Temp Pulse Pulse Resp BP Pulse Ox 07/08/19 10:00 68 101 H 07/08/19 09:00 97.9 F 95 H 18 118/73 92 07/08/19 04:33 98.1 F 67 18 119/78 96 07/08/19 03:36 104 H 117/78 07/07/19 23:57 98.3 F 76 18 115/70 93 07/07/19 20:00 101 H 07/07/19 19:58 102 H 07/07/19 19:25 98.0 F 101 H 18 123/63 94 07/07/19 16:39 98.2 F 70 18 120/71 87 - Physical Examination General: No Apparent Distress HEENT: Positive: PERRL Neck: Positive: trachea midline Cardiac: Positive: Reg Rate and Rhythm Lungs: Positive: Decreased Breath Sounds Neuro: Positive: Weakness, Other (left sided deficits) Skin: Positive: Clear Extremities: Absent: edema - Imaging and Cardiology EKG: report reviewed - Allied health notes Allied health notes reviewed: nursing
[2019-07-09] MEDS ORDERED: LIDOCAINE VISCOUS 2% 15 ML ORAL LIQD ONE (13:21)
== END 2019-07-08 15:13 | DRG 871 ==
LOC: SUATTDRO 01:02 → ED 01:02 → CC1 05:16 → 4A 14:22
PROVIDERS: ADMIT Internal Medicine; ATTEND Internal Medicine
PROC: 5A12012 Performance of Cardiac Output, Single, Manual (ICD-10-PCS; principal; 2019-07-08)
DX: A41.9 Sepsis, unspecified organism (principal); G93.41 Metabolic encephalopathy; N17.9 Acute kidney failure, unspecified; N39.0 Urinary tract infection, site not specified; I69.354 Hemiplegia and hemiparesis following cerebral infarction affecting left non-dominant side; I16.0 Hypertensive urgency; E86.0 Dehydration; K62.89 Other specified diseases of anus and rectum; Z60.2 Problems related to living alone; R31.0 Gross hematuria; N18.2 Chronic kidney disease, stage 2 (mild); I48.2 Chronic atrial fibrillation; Z79.01 Long term (current) use of anticoagulants; Z90.49 Acquired absence of other specified parts of digestive tract; Z87.891 Personal history of nicotine dependence; Z91.19 Patient's noncompliance with other medical treatment and regimen
CPT/HCPCS: 36415; 70450; 71045; 74176; 80048; 80053; 81001; 82962; 83036; 83690; 84439; 84443; 84484; 85007; 85025; 85610; 85730; 87076; 87086; 87186; 92950; 93005; 93010; 96374; G0378; J0696; J2405; J7030; J7042